=== PATIENT | female | born 1950 | race Two or more races ===

== ENCOUNTER 2017-01-23 12:43 | Inpatient (IN) | payer MEDICARE, MEDICAID ==
[~2017-01-23] VITALS: Ht 165.1 cm; Wt 84.4 kg
--- NOTE | 2017-01-23 13:20 | NUR ---
BIB EMS C/O COUGHING BLOOD SINCE THIS MORNING. PATIENT IS AWAKE, ALERT WITH EPISODE OF CONFUSION. APPEARS IN NO APPARENT DISTRESS, RESPIRATION EVEN, PT ON O2 VIA NC @2LPM. PT AFEBRILE. VSS. WILL CONT TO MONITOR
[2017-01-23 13:23] LABS: BASOPHILS # (AUTO) 0.4 /CMM (0.0-0.2); EOSINOPHILS # (AUTO) 0.1 /CMM (0.0-0.7); HEMATOCRIT 30 % (33-45); HEMOGLOBIN 9.9 g/dL (11.5-14.8); LYMPHOCYTES # (AUTO) 0.8 /CMM (0.8-4.8); LYMPHOCYTES % (AUTO) 8.1 % (20.0-44.0); MEAN CORPUSCULAR HEMOGLOBIN 33 PG (26.0-33.0); MEAN CORPUSCULAR HGB CONC 33 g/dl (31.0-36.0); MEAN CORPUSCULAR VOLUME 99 fL (82-100); MONOCYTES # (AUTO) 0.5 /CMM (0.1-1.30); MONOCYTES % (AUTO) 4.9 % (2.0-12.0); NEUTROPHILS # (AUTO) 8.4 /CMM (1.8-8.9); PLATELET COUNT (AUTO) 296 /CMM (150-450); RDW COEFFICIENT OF VARIATION 18.3 (11.5-15.0); RED BLOOD CELL COUNT(AUTO) 3.03 MIL/uL (4.0-5.2); WHITE BLOOD COUNT (AUTO) 10.3 K/uL (4.3-11.0)
[2017-01-23 13:39] LABS: ALANINE AMINOTRANSFERASE 21 U/L (12-78); ALKALINE PHOSPHATASE 128 U/L (46-116); ASPARTATE AMINOTRANSFERASE 20 U/L (15-37); BILIRUBIN,DIRECT 0.1 mg/dL (0.0-0.2); BILIRUBIN,TOTAL 0.4 mg/dL (0.2-1.0); CALCIUM, SERUM 8.2 mg/dL (8.5-10.1); CARBON DIOXIDE 18 mmol/L (21-32); CHLORIDE 102 mmol/L (98-107); CREATININE 6.6 mg/dL (0.6-1.3); GLUCOSE 138 mg/dL (74-106); INR 0.99 (0.87-1.13); POTASSIUM 5.5 mmol/L (3.5-5.1); PROTHROMBIN TIME 10.3 SECS (9.5-12.7); SODIUM SERUM 134 mmol/L (136-145); TOTAL PROTEIN, SERUM 7.4 g/dL (6.4-8.2)
[2017-01-23 13:41] LABS: TROPONIN I < 0.017 ng/mL (0.00-0.056); UREA NITROGEN, BLOOD 96 mg/dL (7-18)
--- NOTE | 2017-01-23 14:16 | NUR ---
CHARGE NURSE ASKED NURSING CEMENT FINISHER APPRENTICE FOR TELEMETRY BED
--- NOTE | 2017-01-23 14:42 | NUR ---
PAGED PIANO STRINGER FOR [facility] NEPHROLOGY
[2017-01-23] MEDS ORDERED: VANCOMYCIN 1 GM in IV D5W 250 ML IV ONE (15:00)
[2017-01-23] MEDS ORDERED: PIPERACILLIN /TAZOBACTAM 3.375 G in IV D5W 50 ML IV ONE (15:00)
[2017-01-23] MEDS ORDERED: HEPA50008 SQ (15:14)
[2017-01-23] MEDS ORDERED: LEVE100S GT (15:14)
[2017-01-23] MEDS ORDERED: THIA100T13 GT (15:14)
[2017-01-23] MEDS ORDERED: OLAN5TAB3 GT (15:14)
[2017-01-23] MEDS ORDERED: ACET-868 GT (15:14)
[2017-01-23] MEDS ORDERED: INSU100I14 SQ (15:14)
[2017-01-23] MEDS ORDERED: IPRA3AMP IH ×2 (15:14)
[2017-01-23] MEDS ORDERED: HYDR20TA3 GT (15:14)
[2017-01-23] MEDS ORDERED: DOCU-170 GT (15:14)
[2017-01-23] MEDS ORDERED: HYDR10TA14 GT (15:14)
[2017-01-23] MEDS ORDERED: VIT1TABL46 GT (15:14)
[2017-01-23] MEDS ORDERED: MAGN296S GT (15:14)
[2017-01-23] MEDS ORDERED: LEVO200T GT (15:14)
[2017-01-23] MEDS ORDERED: OMEP20TA68 GT (15:14)
[2017-01-23] MEDS ORDERED: AMLO10TA2 GT (15:14)
[2017-01-23] MEDS ORDERED: CHOL200026 PO (15:14)
[2017-01-23] MEDS ORDERED: HYDR-552 GT (15:14)
[2017-01-23] MEDS ORDERED: PROT946L GT (15:14)
[2017-01-23] MEDS ORDERED: FERR220S2 GT (15:14)
[2017-01-23] MEDS ORDERED: VITA1TAB18 GT (15:14)
[2017-01-23] MEDS ORDERED: HYDR-4076 GT (15:14)
[2017-01-23] MEDS ORDERED: BISA10SU8 RC (15:14)
--- NOTE | 2017-01-23 15:14 | NUR ---
REPAGED DR TINOCO FOR ADMISSION
[2017-01-23] MEDS ORDERED: NUT.237L67 GT (15:17)
[2017-01-23 15:25] LABS: APPEARANCE,URINE CLOUDY (CLEAR); BILIRUBIN,URINE NEGATIVE (NEGATIVE); BLOOD, URINE TRACE-INTA Ery/uL (NEGATIVE); COLOR,URINE YELLOW (YELLOW); KETONES,URINE NEGATIVE (NEGATIVE); LEUKOCYTE ESTERASE ,URINE 3+ (NEGATIVE); NITRITE, URINE POSITIVE (NEGATIVE); PH,URINE 5.5 (5.0-8.0); PROTEIN,URINE 1+ mg/dl (NEGATIVE); UGLUCOSE NEGATIVE (NEGATIVE); UROBILINOGEN,URINE 0.2 EU/dL (0.2)
[2017-01-23 15:27] LABS: BACTERIA,URINE Moderate /HPF (None Seen); RBC,URINE 0-2 /HPF (0-2); SQUAMOUS EPITHELIAL CELL,UR Few /HPF (None Seen); WBC,URINE 51-80 /HPF (0-3)
[2017-01-23 16:00] VITALS: BP 123/70
[2017-01-23 16:10] VITALS: BP 123/70
--- NOTE | 2017-01-23 16:10 | NUR ---
RN OPENING NOTES RECEIVED PATIENT FROM ER IN STABLE CONDITION. IN ROOM 111-1, ALERT AND ORIENTED X3, PERIODS OF CONFUSION, ABLE TO FOLLOW SIMPLE COMMANDS. BREATHING EVEN AND UNLABORED, NO RESPIRATORY DISTRESS NOTED. O2 SAT 100% ON O2 2LPM VIA NC. ON TELE SINUS RHYTMN IN THE 70S. SLIGHT REDNESS NOTED TO THE BILATERAL GROIN. G-TUBE CLAMPED, SITE CDI. IV SITE ON RIGHT HAND #20 CDI. LEFT UPPER CHEST HD CATH, CDI. SIDE RAILS UP, BED LOCKED AND IN LOWEST POSITION, CALL LIGHT WITHIN EASY REACH. CONTINUE TO MONITOR PATIENT.
--- NOTE | 2017-01-23 16:14 | NUR ---
PATIENT TRASPORTED TO CAIO,. VSS
[2017-01-23] MEDS ORDERED: IPRATROPIUM NEB FS 0.5 MG/2.5 ML AMPUL.NEB NEB PRN (18:00)
[2017-01-23] MEDS ORDERED: BISACODYL SUPP (10 MG) 10 MG/SUPP.RECT SUPP.RECT RC PRN (18:00)
[2017-01-23] MEDS ORDERED: MAGNESIUM CITRATE 296 ML BOTTLE GT PRN (18:00)
[2017-01-23] MEDS ORDERED: ALBUTEROL FS 2.5 MG/0.5 ML VIAL.NEB NEB PRN (18:00)
[2017-01-23] MEDS ORDERED: FERROUS SULFATE UDC 300 MG/5 ML UDC PO SCH (18:00)
[2017-01-23] MEDS: HYDROCODONE/APAP 5/325MG 1 EACH TABLET GT PRN (18:27)
[2017-01-23] MEDS ORDERED: ACETAMINOPHEN 650 MG/20.3 ML UDC GT PRN (18:30)
--- NOTE | 2017-01-23 18:30 | NUR ---
RN END NOTES RESIDENT RESTING IN BED IN STABLE CONDITION. NO RESPIRATORY DISTRESS NOTED, BREATHING EVEN AND UNLABORED. O2 SAT 100% ON O2 2LPM VIA NASAL CANNULA. TELE SINUS TIBURCIO IN THE HIGH 60S-70S. RAC IV SITE CDI, NO COMPLICATIONS NOTED. GT SITE CDI. SIDE RAILS UP, BED LOCKED AND IN LOWEST POSITION, CALL LIGHT WITHIN EASY REACH.
--- NOTE | 2017-01-23 19:20 | NUR ---
RN INITIAL NOTE RECEIVED PT IN NO ACUTE DISTRESS IN BED. PT IS A/O X 3 AND ABLE TO MAKE NEEDS KNOWN. PT IS ON O2 VIA NC @ 2LPM AND TOLERATING WELL. PT IS ON TELE WITH SR ON THE MONITOR. PT HAS GTUBE THAT IS CLEAN DRY INTACT AND PATENT WITH FREE WATER FLUSH. PT HAS NOVASOURCE @ 65ML/HR X 16H, BUT AWAITING BAG FROM NUTRITION. PT HAS AV SHUNT ON BING THAT HAS + BRUIT. PT HAS RHAND 20G THAT IS CLEAN DRY INTACT AND PATENT. BED IN LOW LOCK POSITION WITH RIALS UP X 2. CALL LIGHT WITHIN REACH AND ALL SAFETY MEASURES ENSURED AND CARRIED OUT. WILL CONTINUE TO MONITOR PT.
[2017-01-23 20:00] VITALS: BP 129/74
[2017-01-23] MEDS ORDERED: FEE PK DOSING 1 MIN EA MC ONE (20:21)
[2017-01-23] MEDS ORDERED: SECONDARY IV SET 1 EA INFUS.SET MC ONE (20:45)
[2017-01-23] MEDS ORDERED: IV NS 0.9% 250 ML IV ONE (20:45)
[2017-01-23] MEDS ORDERED: IV SET PRIMARY PUMP SET 1 EA INFUS.SET MC ONE (20:45)
[2017-01-23] MEDS: MEROPENEM 500 MG in IV NS 0.9% 50 ML IV SCH (20:45)
[2017-01-23] MEDS ORDERED: PIPERACILLIN /TAZOBACTAM 2.25 G in IV D5W 50 ML IV SCH (21:00)
[2017-01-23] MEDS: ALBUTEROL FS 2.5 MG/0.5 ML VIAL.NEB NEB SCH (21:09)
[2017-01-23] MEDS: IPRATROPIUM NEB FS 0.5 MG/2.5 ML AMPUL.NEB NEB SCH (21:09)
[2017-01-23] MEDS: hydrALAZINE HCL 25 MG TABLET GT SCH (21:13)
[2017-01-23] MEDS: HYDROCORTISONE 5 MG TABLET GT SCH (21:13)
[2017-01-23 21:35] VITALS: BP 129/74
[2017-01-23] MEDS: RENAL NOVASOURCE 1,000 ML BOTTLE GT PRN (23:58)
[2017-01-24] VITALS: BP 139/75
[2017-01-24] MEDS: IPRATROPIUM NEB FS 0.5 MG/2.5 ML AMPUL.NEB NEB SCH ×4 (01:13→20:26)
[2017-01-24] MEDS: ALBUTEROL FS 2.5 MG/0.5 ML VIAL.NEB NEB SCH ×4 (01:13→20:26)
[2017-01-24 04:00] VITALS: BP 142/78
--- NOTE | 2017-01-24 06:23 | NUR ---
RN CLOSING NOTE PT REMAINS IN NO ACUTE DISTRESS IN BED. PT DID NOT HAVE ANY SIGNIFICANT CHANGE IN CONDITION DURING SHIFT. ALL NEEDS MET ALL ORDERS CARRIED OUT. WILL ENDORSE REPORT TO AM RN FOR CONTINUITY OF CARE.
[2017-01-24 07:34] LABS: BASOPHILS % (AUTO) 0.1 % (0.0-2.0); EOSINOPHILS # (AUTO) 0.2 /CMM (0.0-0.7); EOSINOPHILS % (AUTO) 2.6 % (0.0-6.0); HEMATOCRIT 30 % (33-45); HEMOGLOBIN 9.6 g/dL (11.5-14.8); LYMPHOCYTES # (AUTO) 0.5 /CMM (0.8-4.8); LYMPHOCYTES % (AUTO) 5.3 % (20.0-44.0); MEAN CORPUSCULAR HEMOGLOBIN 33 PG (26.0-33.0); MEAN CORPUSCULAR HGB CONC 33 g/dl (31.0-36.0); MEAN CORPUSCULAR VOLUME 100 fL (82-100); MONOCYTES # (AUTO) 0.9 /CMM (0.1-1.30); MONOCYTES % (AUTO) 10.5 % (2.0-12.0); NEUTROPHILS # (AUTO) 7.3 /CMM (1.8-8.9); NEUTROPHILS % (AUTO) 81.5 % (43.0-81.0); PLATELET COUNT (AUTO) 302 /CMM (150-450); RDW COEFFICIENT OF VARIATION 19.4 (11.5-15.0); RED BLOOD CELL COUNT(AUTO) 2.95 MIL/uL (4.0-5.2); WHITE BLOOD COUNT (AUTO) 8.9 K/uL (4.3-11.0)
[2017-01-24 07:53] LABS: CALCIUM, SERUM 7.8 mg/dL (8.5-10.1); POTASSIUM 5.1 mmol/L (3.5-5.1)
[2017-01-24 08:00] VITALS: BP 138/80
[2017-01-24 08:25] LABS: CREATININE 7.5 mg/dL (0.6-1.3)
[2017-01-24] MEDS: HYDROCORTISONE 20 MG TABLET GT SCH (09:00)
[2017-01-24] MEDS ORDERED: VITAMIN B COMP W-C 1 TAB TABLET PO SCH (09:00)
--- NOTE | 2017-01-24 09:20 | NUR ---
WOUND CARE CONSULT: PT PRESENTS WITH SACRAL SCARRING. ALL SKIN PROTECTION MEASURES IN PLACE AND DISCUSSED WITH NURSING STAFF. PT IS INCONTINENT. PT ABLE TO ASSIST SOMEWHAT WITH TURNING AND REPOSITIONING IN BED. PT ON COMFORT GEL MATTRESS. WILL SEE PRN. GIPSON IN AGREEMENT WITH PLAN OF CARE. Addendum: 01/24/17 at 0922 by SAGAR PRASAD WNDNU Amended: Links added.
[2017-01-24] MEDS: LEVOTHYROXINE SODIUM 100 MCG TABLET GT SCH (09:24)
[2017-01-24] MEDS: FERROUS SULFATE UDC 300 MG/5 ML UDC GT SCH ×3 (09:25→17:50)
[2017-01-24] MEDS: CHOLECALCIFEROL 1,000 UNIT TABLET (VIT D3) GT SCH (09:25)
[2017-01-24] MEDS: PANTOPRAZOLE 40 MG/PACK PACK GT SCH (09:26)
[2017-01-24] MEDS: OLANZAPINE 5 MG TABLET GT SCH ×2 (09:26→17:49)
[2017-01-24] MEDS: LEVETIRACETAM SOL (5 ML) 100 MG/ML UDC GT SCH ×2 (09:27→17:49)
[2017-01-24] MEDS: THIAMINE HCL 100 MG TABLET GT SCH (09:27)
[2017-01-24] MEDS: AMLODIPINE BESYLATE 10 MG TABLET GT SCH (09:27)
[2017-01-24] MEDS: VIT B CMPLX 3/FA/VIT C/BIOTIN 1 TAB TABLET GT SCH (09:28)
[2017-01-24] MEDS: DOCUSATE SODIUM LIQ 100 MG/10 ML UDC GT SCH (09:28)
[2017-01-24] MEDS ORDERED: Z GUARD REMEDY 2 OZ OINT TP PRN (09:30)
[2017-01-24] MEDS: Z GUARD REMEDY 2 OZ OINT TP SCH (09:30)
[2017-01-24] MEDS: hydrALAZINE HCL 25 MG TABLET GT SCH ×4 (09:33→20:38)
[2017-01-24] MEDS: MEROPENEM 500 MG in IV NS 0.9% 50 ML IV SCH ×2 (09:37→20:37)
[2017-01-24] MEDS: PROSOURCE / PROSTAT (PYXIS) 30 ML UDC GT SCH ×2 (09:37→17:55)
[2017-01-24] MEDS ORDERED: ALTEPLASE CATHFLO 2 MG/VIAL IV ONE (11:00)
[2017-01-24 12:00] VITALS: BP 109/62
[2017-01-24] MEDS: HYDROCODONE/APAP 5/325MG 1 EACH TABLET GT PRN (14:10)
[2017-01-24 16:00] VITALS: BP 124/86
--- NOTE | 2017-01-24 19:30 | NUR ---
ELECTRONICS TEACHER INITIAL NOTES PT IS IN BED, HOB ELEVATED, ALERT, ORIENTED X1, WITH PERIODS OF CONFUSION, REORIENTED PT AND PROVIDED SAFETY. ON NASAL CANNULA ON 3LPM, NO RESPIRATORY DISTRESS NOTED. ON TELE MONITOR, SINUS RHYTHM. ON CONTINUOUS FEEDING, NO RESIDUAL NOTED. ASSISTED PATIENT WITH TURNING AND REPOSITIONING. IV SITE ON RIGHT HAND FLUSHED AND PATENT. SIDE RAILS UP, BED LOCKED AND IN LOWEST POSITION. WILL CONTINUE TO MONITOR, CALL LIGHT WITHIN REACH.
[2017-01-24 20:00] VITALS: BP 147/76
[2017-01-24] MEDS: HYDROCORTISONE 5 MG TABLET GT SCH (21:32)
[2017-01-25] VITALS: BP 145/87
[2017-01-25] MEDS ORDERED: IV NS 0.9% 250 ML IV ONE (01:39)
[2017-01-25] MEDS: HYDROCODONE/APAP 5/325MG 1 EACH TABLET GT PRN ×3 (01:44→15:17)
[2017-01-25] MEDS: IPRATROPIUM NEB FS 0.5 MG/2.5 ML AMPUL.NEB NEB SCH ×4 (02:15→20:10)
[2017-01-25] MEDS: ALBUTEROL FS 2.5 MG/0.5 ML VIAL.NEB NEB SCH ×4 (02:15→20:10)
[2017-01-25] MEDS: RENAL NOVASOURCE 1,000 ML BOTTLE GT PRN ×2 (03:55→19:48)
[2017-01-25 04:00] VITALS: BP 138/76
--- NOTE | 2017-01-25 06:41 | NUR ---
RN CLOSING NOTES NO SIGNIFICANT CHANGES OVERNIGHT. NO SOB, NO RESPIRATORY DISTRESS NOTED, AFEBRILE. NO ACTIVE BLEEDING NOTED. TOLERATING NC 2LPM VIA NASAL CANNULA. KEPT PATIENT CLEAN AND DRY, ASSISTED WITH ADL'S TOLERATED CONTINUOUS FEEDING. SIDE RAILS UP, BED LOCKED AND IN LOWEST POSITION, ALL SAFETY MEASURES MET, CALL LIGHT WITHIN REACH. WILL ENDORSED TO AM NURSE FOR CONTINUATION OF CARE.
[2017-01-25 08:00] VITALS: BP 160/89
[2017-01-25 08:13] LABS: CALCIUM, SERUM 8.6 mg/dL (8.5-10.1); POTASSIUM 5.8 mmol/L (3.5-5.1)
[2017-01-25] MEDS: AMLODIPINE BESYLATE 10 MG TABLET GT SCH (08:34)
[2017-01-25] MEDS: FERROUS SULFATE UDC 300 MG/5 ML UDC GT SCH ×3 (08:34→17:43)
[2017-01-25] MEDS: VIT B CMPLX 3/FA/VIT C/BIOTIN 1 TAB TABLET GT SCH (08:34)
[2017-01-25] MEDS: DOCUSATE SODIUM LIQ 100 MG/10 ML UDC GT SCH (08:34)
[2017-01-25] MEDS: CHOLECALCIFEROL 1,000 UNIT TABLET (VIT D3) GT SCH (08:34)
[2017-01-25] MEDS: LEVETIRACETAM SOL (5 ML) 100 MG/ML UDC GT SCH ×2 (08:34→17:44)
[2017-01-25] MEDS: PANTOPRAZOLE 40 MG/PACK PACK GT SCH (08:35)
[2017-01-25] MEDS: THIAMINE HCL 100 MG TABLET GT SCH (08:35)
[2017-01-25] MEDS: LEVOTHYROXINE SODIUM 100 MCG TABLET GT SCH (08:35)
[2017-01-25] MEDS: MEROPENEM 500 MG in IV NS 0.9% 50 ML IV SCH ×2 (08:36→20:21)
[2017-01-25] MEDS: OLANZAPINE 5 MG TABLET GT SCH ×2 (08:36→17:43)
[2017-01-25 08:49] LABS: THYROID STIMULATING HORMONE 11.017 uIU/mL (0.358-3.74); URIC ACID 5.7 mg/dL (2.6-7.2)
[2017-01-25] MEDS: PROSOURCE / PROSTAT (PYXIS) 30 ML UDC GT SCH ×2 (08:49→17:44)
[2017-01-25] MEDS: Z GUARD REMEDY 2 OZ OINT TP SCH (08:49)
[2017-01-25] MEDS: HYDROCORTISONE 20 MG TABLET GT SCH (09:00)
[2017-01-25] MEDS: hydrALAZINE HCL 25 MG TABLET GT SCH ×4 (09:22→20:23)
[2017-01-25 09:30] LABS: ABG OXYGEN SATURATION 89.8 % (92.0-98.5); ABG PCO2 39.7 mmHg (35.0-45.0); ABG PH 7.278 (7.350-7.450); AaDO2 119.9 mmHg; COHb 1.2 % (0.5-1.5); MetHb 0.6 % (0.0-1.5); O2Hb 88.2 % (94.0-97.0); SITE, ABG Right Radial; VENT MODE, BG nasal cannula
--- NOTE | 2017-01-25 09:45 | NUR ---
TRAFFIC POLICE OFFICER INITIAL NOTES PT IS IN BED, HOB ELEVATED, ALERT, ORIENTED X1, WITH PERIODS OF CONFUSION, REORIENTED PT AND PROVIDED SAFETY. ON NASAL CANNULA ON 3LPM, NO RESPIRATORY DISTRESS NOTED. ON TELE MONITOR, SINUS RHYTHM. ON CONTINUOUS FEEDING, NO RESIDUAL NOTED. ASSISTED PATIENT WITH TURNING AND REPOSITIONING. IV SITE ON RIGHT HAND CLOGGED. IV PLACED IN RIGHT AC 22 G IV ANTIBIOTIC RUNNING . SIDE RAILS UP, BED LOCKED AND IN LOWEST POSITION. WILL CONTINUE TO MONITOR, CALL LIGHT WITHIN REACH.
[2017-01-25] MEDS: HYDROCORTISONE 5 MG TABLET GT SCH ×2 (10:48→21:21)
--- NOTE | 2017-01-25 11:04 | NUR ---
RN NOTE HYDROCORTISONE MEDICATION NOT AVAILABLE PHARMACY CONTACTED TWICE FOR REQUEST TO [facility]
[2017-01-25 12:00] VITALS: BP 111/56
[2017-01-25] MEDS ORDERED: VANCOMYCIN 1 GM in IV D5W 250 ML IV ONE (14:00)
[2017-01-25] MEDS ORDERED: SECONDARY IV SET 1 EA INFUS.SET MC ONE (14:12)
[2017-01-25 16:00] VITALS: BP 128/68
[2017-01-25] MEDS: LACTOBACILLUS RHAMNOSUS GG 1 EACH CAP.SPRINK GT SCH (17:44)
--- NOTE | 2017-01-25 18:06 | NUR ---
RN CLOSING NOTES NO SIGNIFICANT CHANGES THROUGHOUT THE DAY. NO SOB, NO RESPIRATORY DISTRESS NOTED, AFEBRILE. NO ACTIVE BLEEDING NOTED. TOLERATING NC 2LPM VIA NASAL CANNULA. KEPT PATIENT CLEAN AND DRY, ASSISTED WITH ADL'S TOLERATED CONTINUOUS FEEDING. SIDE RAILS UP, BED LOCKED AND IN LOWEST POSITION, ALL SAFETY MEASURES MET, CALL LIGHT WITHIN REACH. PATIENT RECIEVED HEMODIALYSIS TODAY 2 LITERS REMOVED WILL ENDORSED TO PM NURSE FOR CONTINUATION OF CARE.
[2017-01-25 20:00] VITALS: BP 139/75
[2017-01-26] VITALS (8 sets, daily range): BP systolic 101–177; BP diastolic 51–99
[2017-01-26] MEDS: HYDROCODONE/APAP 5/325MG 1 EACH TABLET GT PRN ×3 (00:57→17:41)
[2017-01-26] MEDS: IPRATROPIUM NEB FS 0.5 MG/2.5 ML AMPUL.NEB NEB SCH ×4 (01:19→19:35)
[2017-01-26] MEDS: ALBUTEROL FS 2.5 MG/0.5 ML VIAL.NEB NEB SCH ×4 (01:19→19:35)
[2017-01-26] MEDS ORDERED: IV NS 0.9% 250 ML IV ONE (04:57)
--- NOTE | 2017-01-26 07:43 | NUR ---
SECURITY CHECKER INITIAL NOTES PT IS IN BED, HOB ELEVATED, ALERT, ORIENTED X1, WITH PERIODS OF CONFUSION, REORIENTED PT AND PROVIDED SAFETY. ON NASAL CANNULA ON 3LPM, NO RESPIRATORY DISTRESS NOTED. . ON CONTINUOUS FEEDING, NO RESIDUAL NOTED. ASSISTED PATIENT WITH TURNING AND REPOSITIONING. IV SITE ON RIGHT HAND CLOGGED. IV RIGHT AC 22 G IV SIDE RAILS UP, BED LOCKED AND IN LOWEST POSITION. WILL CONTINUE TO MONITOR, CALL LIGHT WITHIN REACH.
--- NOTE | 2017-01-26 07:56 | NUR ---
RN CLOSING NOTES NO SIGNIFICANT CHANGES OVERNIGHT. TOLERATING NC 2LPM VIA NASAL CANNULA, SATURATING WELL. KEPT PATIENT CLEAN AND DRY, ASSISTED WITH ADL'S MAXIMUM ASSIST. TOLERATED GT CONTINUOUS FEEDING. SIDE RAILS UP, BED LOCKED AND IN LOWEST POSITION, ALL SAFETY MEASURES MET, CALL LIGHT WITHIN REACH. ENDORSED TO AM NURSE FOR CONTINUATION OF CARE.
[2017-01-26 08:01] LABS: CALCIUM, SERUM 8.4 mg/dL (8.5-10.1); CREATININE 6.5 mg/dL (0.6-1.3); POTASSIUM 5.5 mmol/L (3.5-5.1)
[2017-01-26] MEDS: HYDROCORTISONE 20 MG TABLET GT SCH (09:00)
[2017-01-26] MEDS: MEROPENEM 500 MG in IV NS 0.9% 50 ML IV SCH ×2 (09:08→21:26)
[2017-01-26] MEDS: LEVOTHYROXINE SODIUM 100 MCG TABLET GT SCH (09:09)
[2017-01-26] MEDS: CHOLECALCIFEROL 1,000 UNIT TABLET (VIT D3) GT SCH (09:09)
[2017-01-26] MEDS: PANTOPRAZOLE 40 MG/PACK PACK GT SCH (09:09)
[2017-01-26] MEDS: OLANZAPINE 5 MG TABLET GT SCH ×2 (09:09→17:41)
[2017-01-26] MEDS: LACTOBACILLUS RHAMNOSUS GG 1 EACH CAP.SPRINK GT SCH ×2 (09:09→17:41)
[2017-01-26] MEDS: LEVETIRACETAM SOL (5 ML) 100 MG/ML UDC GT SCH ×2 (09:09→17:42)
[2017-01-26] MEDS: FERROUS SULFATE UDC 300 MG/5 ML UDC GT SCH ×3 (09:09→17:42)
[2017-01-26] MEDS: VIT B CMPLX 3/FA/VIT C/BIOTIN 1 TAB TABLET GT SCH (09:09)
[2017-01-26] MEDS: DOCUSATE SODIUM LIQ 100 MG/10 ML UDC GT SCH (09:09)
[2017-01-26] MEDS: THIAMINE HCL 100 MG TABLET GT SCH (09:09)
[2017-01-26] MEDS: Z GUARD REMEDY 2 OZ OINT TP SCH (09:13)
[2017-01-26] MEDS: PROSOURCE / PROSTAT (PYXIS) 30 ML UDC GT SCH ×2 (09:13→17:45)
[2017-01-26] MEDS: AMLODIPINE BESYLATE 10 MG TABLET GT SCH (09:13)
[2017-01-26] MEDS: hydrALAZINE HCL 25 MG TABLET GT SCH ×4 (09:22→21:26)
--- NOTE | 2017-01-26 13:15 | NUR ---
RN NOTE PT SHOWED SIGNS OF DISTRESS DURING AND SHORTLY AFTER BED BATH , PT DESATURATION TO 86 ON 2 L OF O2 PATIENT O2 INCREASED AND HEAD OF BEAD RAISED PATIENT HD BEGAN AND STAT EKG AND LEAD Addendum: 01/26/17 at 1608 by SYDNEE SCHMITZ RN PATIENT PLACED ON TELE MONITOR
--- NOTE | 2017-01-26 16:03 | NUR ---
RN NOTE PATIENT RECIEVED HD TODAY 2.5 L REMOVED PATIENT TOLERATED WELL NO ISSUES . VITAL STABLE
[2017-01-26] MEDS ORDERED: VANCOMYCIN 1 GM in IV D5W 250 ML IV ONE (18:00)
--- NOTE | 2017-01-26 18:23 | NUR ---
RN CLOSING NOTES NO SIGNIFICANT CHANGES THROUGHOUT THE DAY. NO SOB,RESPIRATORY DISTRESS NOTED BREIFLY AND REPORTED TO MD TINOCO . MD ASSESSED PATIENT ORDER LABS AND EKG, LAB CAME BACK WNL , AFEBRILE. NO ACTIVE BLEEDING NOTED. TOLERATING NC 2LPM VIA NASAL CANNULA. KEPT PATIENT CLEAN AND DRY, ASSISTED WITH ADL'S TOLERATED CONTINUOUS FEEDING. SIDE RAILS UP, BED LOCKED AND IN LOWEST POSITION, ALL SAFETY MEASURES MET, CALL LIGHT WITHIN REACH. PATIENT RECEIVED HEMODIALYSIS TODAY 2 LITERS REMOVED WILL ENDORSED TO PM NURSE FOR CONTINUATION OF CARE.
[2017-01-26] MEDS ORDERED: SECONDARY IV SET 1 EA INFUS.SET MC ONE (18:32)
--- NOTE | 2017-01-26 19:30 | NUR ---
MULTIMEDIA EDUCATIONAL SPECIALIST INITIAL NOTES PT IS IN BED, HOB ELEVATED. A/O X1, PERIODS OF CONFUSION, REORIENTED PT. ON NASAL CANNULA 3LPM, SATURATING 94%. ON TELE MONITOR SINUS RHYTHM,IV SITES IN R HAND TKO. ON CONTINUOUS GT FEEDING, NO RESIDUAL NOTED. ASSISTED PT TURNING AND REPOSITIONING, SIDE RAILS UP, BED LOCKED AND IN LOWEST POSITION, CALL LIGHT WITHIN REACH. WILL CONTINUE TO MONITOR.
[2017-01-26] MEDS ORDERED: ROCURONIUM BROMIDE 50 MG/5 ML IV ONE (20:15)
[2017-01-26] MEDS ORDERED: FEE EMEERGENCY 1 MIN EA MC ONE (20:15)
--- NOTE | 2017-01-26 20:48 | NUR ---
RN NOTES CALLED THE PATIENT'S SON, MC AND INFORMED HIM ABOUT THE CHANGE OF CONDITION OF HER AND THAT SHE WAS TRANSFERRED TO ICU.
--- NOTE | 2017-01-26 21:00 | NUR ---
RN NOTES PT PULLED OUT THE IV, INSERTED A NEW IV LINE HAND, FLUSHED AND PATENT.
[2017-01-26] MEDS: HYDROCORTISONE 5 MG TABLET GT SCH (21:26)
--- NOTE | 2017-01-26 21:30 | NUR ---
RN NOTES PT IS AGITATED AND TRYING TO PULL TUBES AND IV SITES, REORIENTED PATIENT AND PROVIDED COMFORT. WILL CALL MD TO OBTAIN AND ORDER TO CALM THE PATIENT. EVENING MEDICATIONS GIVEN VIA GT, PT TOLERATED IT WELL. CALL LIGHT WITH REACH.
[2017-01-26] MEDS ORDERED: LORAZEPAM 0.5 MG TABLET GT PRN (22:00)
--- NOTE | 2017-01-26 22:00 | NUR ---
RN NOTE ATIVAN 0.5MG VIA GT Q6PRN NEEDED FOR AGITATION FROM DR JESUS MD ORDERED OBTAINED AND CARRIED OUT.
--- NOTE | 2017-01-26 22:06 | NUR ---
RN NOTES PT FOUND UNRESPONSIVE, UNABLE TO GET A PULSE, CALLED CODE BLUE, CPR INITIATED.
--- NOTE | 2017-01-26 22:45 | NUR ---
TELEVISION RECEIVER ANALYZER RCD PT FROM TELE S/P CODE BLUE; PT IS NON RESPONSIVE INTUBATED 6 @ 24 W/INITIAL VENT SETTINGS AC 16 550 100% 5. NSR ON MONITOR W/SBP 130s. PT HAS G TUBE CLAMPED. PENDING LAB WORK, ABG, CXR, EKG. CONTINUE TO MONITOR.
--- NOTE | 2017-01-26 22:50 | NUR ---
CODE BLUE was initiated on the patient, pt was intubated with size 6 et tube due to small airway, MD attempted x3 to intubate. pt in icu ventilator is connected to red outlet ambubag at bedside.alarms are set and audible. Addendum: 01/26/17 at 2253 by LIDYA ANAND RT Amended: Links added.
[2017-01-26 22:55] LABS: CALCIUM, SERUM 8.1 mg/dL (8.5-10.1); CARBON DIOXIDE 24 mmol/L (21-32); CHLORIDE 96 mmol/L (98-107); CREATININE 5.6 mg/dL (0.6-1.3); GLUCOSE 175 mg/dL (74-106); POTASSIUM 4.4 mmol/L (3.5-5.1); SODIUM SERUM 131 mmol/L (136-145); UREA NITROGEN, BLOOD 78 mg/dL (7-18)
[2017-01-26 23:01] LABS: ALANINE AMINOTRANSFERASE 46 U/L (12-78); ALBUMIN 3.1 g/dL (3.4-5.0); ALKALINE PHOSPHATASE 127 U/L (46-116); ASPARTATE AMINOTRANSFERASE 58 U/L (15-37); BILIRUBIN,TOTAL 0.6 mg/dL (0.2-1.0); MAGNESIUM 2.5 mg/dL (1.8-2.4); PHOSPHORUS 6.1 mg/dL (2.5-4.9); TOTAL PROTEIN, SERUM 7.9 g/dL (6.4-8.2)
[2017-01-26 23:02] LABS: HEMATOCRIT 29 % (33-45); HEMOGLOBIN 9.5 g/dL (11.5-14.8); INR 0.96 (0.87-1.13); MEAN CORPUSCULAR HEMOGLOBIN 32 PG (26.0-33.0); MEAN CORPUSCULAR HGB CONC 33 g/dl (31.0-36.0); MEAN CORPUSCULAR VOLUME 100 fL (82-100); PROTHROMBIN TIME 10.2 SECS (9.5-12.7); RED BLOOD CELL COUNT(AUTO) 2.95 MIL/uL (4.0-5.2); TROPONIN I < 0.017 ng/mL (0.00-0.056)
[2017-01-26 23:03] LABS: BASOPHILS # (AUTO) 0.1 /CMM (0.0-0.2); BASOPHILS % (AUTO) 0.6 % (0.0-2.0); EOSINOPHILS # (AUTO) 0.2 /CMM (0.0-0.7); EOSINOPHILS % (AUTO) 1.8 % (0.0-6.0); LYMPHOCYTES # (AUTO) 1.4 /CMM (0.8-4.8); LYMPHOCYTES % (AUTO) 11.8 % (20.0-44.0); MONOCYTES # (AUTO) 0.9 /CMM (0.1-1.30); MONOCYTES % (AUTO) 7.6 % (2.0-12.0); NEUTROPHILS # (AUTO) 9.4 /CMM (1.8-8.9); NEUTROPHILS % (AUTO) 78.2 % (43.0-81.0); PLATELET COUNT (AUTO) 287 /CMM (150-450); RDW COEFFICIENT OF VARIATION 18.6 (11.5-15.0)
[2017-01-26 23:16] LABS: ABG BASE EXCESS -3.9 mmol/L; ABG PCO2 49.5 mmHg (35.0-45.0); ABG PH 7.287 (7.350-7.450); ABG PO2 136.7 mmHg (75.0-100.0); AaDO2 526.8 mmHg; SITE, ABG Right Brachial
[2017-01-26] MEDS ORDERED: IV SET PRIMARY PUMP SET 1 EA INFUS.SET MC ONE (23:59)
[2017-01-26] MEDS ORDERED: PROPOFOL 100 ML IV ONE (23:59)
[2017-01-27] VITALS (63 sets, daily range): BP systolic 84–178; BP diastolic 45–93
[2017-01-27] MEDS: PROPOFOL 100 ML IV PRN ×4 (00:06→17:30)
[2017-01-27] MEDS ORDERED: LORAZEPAM 0.5 MG TABLET ONE (00:19)
[2017-01-27] MEDS: IPRATROPIUM NEB FS 0.5 MG/2.5 ML AMPUL.NEB NEB SCH ×4 (00:52→19:30)
[2017-01-27] MEDS: ALBUTEROL FS 2.5 MG/0.5 ML VIAL.NEB NEB SCH ×4 (00:52→19:30)
[2017-01-27 04:52] LABS: EOSINOPHILS % (AUTO) 0.4 % (0.0-6.0); HEMATOCRIT 25 % (33-45); HEMOGLOBIN 8.3 g/dL (11.5-14.8); LYMPHOCYTES # (AUTO) 0.2 /CMM (0.8-4.8); LYMPHOCYTES % (AUTO) 1.7 % (20.0-44.0); MEAN CORPUSCULAR HEMOGLOBIN 33 PG (26.0-33.0); MEAN CORPUSCULAR HGB CONC 34 g/dl (31.0-36.0); MEAN CORPUSCULAR VOLUME 98 fL (82-100); MONOCYTES # (AUTO) 0.9 /CMM (0.1-1.30); NEUTROPHILS # (AUTO) 10.1 /CMM (1.8-8.9); NEUTROPHILS % (AUTO) 89.9 % (43.0-81.0); PLATELET COUNT (AUTO) 195 /CMM (150-450); RDW COEFFICIENT OF VARIATION 18.1 (11.5-15.0); RED BLOOD CELL COUNT(AUTO) 2.52 MIL/uL (4.0-5.2); WHITE BLOOD COUNT (AUTO) 11.2 K/uL (4.3-11.0)
[2017-01-27 05:11] LABS: CALCIUM, SERUM 7.8 mg/dL (8.5-10.1); CREATININE 5.6 mg/dL (0.6-1.3); POTASSIUM 4.9 mmol/L (3.5-5.1)
[2017-01-27 05:42] LABS: LYMPHOCYTES % (MANUAL) 3 % (16-48); MONOCYTES % (MANUAL) 6 % (0-11.0); NEUTROPHILS % (MANUAL) 91 (42-76)
[2017-01-27] MEDS ORDERED: PROPOFOL 100 ML IV ONE (06:09)
--- NOTE | 2017-01-27 08:00 | NUR ---
MEASUREMENT TECHNICIAN; ASSESSMENT RECEIVED PT VENTED VIA ETT, SEE FLOW SHEET FOR VENT SETTINGS. PT S/P CODE BLUE. PT SEDATED ON DIPRIVAN DRIP AT 35MCG/KG/MIN. INFUSING INTO LEFT UPPER ARM SHOULDER AREA 22G. WILL ORDER FOR MIDLINE PLACEMENT. OLD FISTULA SITE TO LEFT UPPER ARM WITH NO BRUITT OR THRILL. LEFT UPPER CHEST HD ASSESS. PT ANURIC NO DISTRESS NOTED WILL CONTINUE TO MONITOR.
[2017-01-27 08:08] LABS: TROPONIN I 0.109 ng/mL (0.00-0.056)
[2017-01-27] MEDS: PROSOURCE / PROSTAT (PYXIS) 30 ML UDC GT SCH ×2 (08:12→17:00)
[2017-01-27] MEDS: LEVOTHYROXINE SODIUM 100 MCG TABLET GT SCH (08:12)
[2017-01-27] MEDS: DOCUSATE SODIUM LIQ 100 MG/10 ML UDC GT SCH (08:12)
[2017-01-27] MEDS: LEVETIRACETAM SOL (5 ML) 100 MG/ML UDC GT SCH ×2 (08:12→17:00)
[2017-01-27] MEDS: LACTOBACILLUS RHAMNOSUS GG 1 EACH CAP.SPRINK GT SCH ×2 (08:13→17:00)
[2017-01-27] MEDS: THIAMINE HCL 100 MG TABLET GT SCH (08:13)
[2017-01-27] MEDS: PANTOPRAZOLE 40 MG/PACK PACK GT SCH (08:13)
[2017-01-27] MEDS: HEPARIN SODIUM, PORCINE 5000 UNITS/1 ML VIAL SQ SCH ×2 (08:13→21:17)
[2017-01-27] MEDS: VIT B CMPLX 3/FA/VIT C/BIOTIN 1 TAB TABLET GT SCH (08:13)
[2017-01-27] MEDS: CHOLECALCIFEROL 1,000 UNIT TABLET (VIT D3) GT SCH (08:13)
[2017-01-27] MEDS: Z GUARD REMEDY 2 OZ OINT TP SCH (08:14)
[2017-01-27] MEDS: OLANZAPINE 5 MG TABLET GT SCH ×2 (08:14→17:00)
[2017-01-27] MEDS ORDERED: IV SET PRIMARY PUMP SET 1 EA INFUS.SET MC ONE ×2 (08:36→12:22)
[2017-01-27] MEDS ORDERED: SECONDARY IV SET 1 EA INFUS.SET MC ONE (08:36)
[2017-01-27] MEDS ORDERED: EPINEPHRINE (1:10,000) SYRINGE 1 MG/10 ML DISP.SYRIN IVP ONE (09:44)
[2017-01-27] MEDS: MEROPENEM 500 MG in IV NS 0.9% 50 ML IV SCH ×2 (10:09→21:10)
[2017-01-27] MEDS: HYDROCORTISONE 5 MG TABLET GT SCH ×2 (10:09→21:15)
--- NOTE | 2017-01-27 11:00 | NUR ---
LIBRARY CIRCULATION ASSISTANT; SEDATION VACATION DIPRIVAN HAS BEEN OFF FOR ABOUT 30 MIN PT OPENS EYES, BUT UNABLE TO TRACK OR FOLLOW COMMANDS. PT RESPIRATORY RATE INCREASED TO 30BPM. APPEARS TO BE AGITATED BITTING ON ETT. DIPRIVAN TURNED BACK ON FOR SEDATION AND COMFORT. WILL CONTINUE TO MONITOR CLOSELY
--- NOTE | 2017-01-27 11:42 | NUR ---
TIRE BUFFER; PULMONARY DR. RUTLEDGE AT BEDSIDE UPDATE WAS GIVEN. DISCUSSED REGARDING PT S/P CODE BLUE AND BEING A HARD INTUBATION. DR. RUTLEDGE REQUEST TO SPEAK WITH FAMILY REGARDING PLAN OF CARE AND THE NEED TO HAVE TRACH FOR [facility] CARE. UNABLE TO REACH FAMILY, SON ROSCOE, MESSAGE LEFT ON ANSWERING MACHINE.
--- NOTE | 2017-01-27 12:15 | NUR ---
POULTRY BONER; PULMONARY PTS SON ROSCOE, CALLED BACK UPDATE WAS GIVEN. DISCUSSED CODE STATUS AND THAT PT IS S/P CODE BLUE. PT CONTINUES TO WANT PT FULL CODE STATUS. DR. RUTLEDGE WAS ABLE TO SPEAK WITH SON AND GIVE UPDATE. DISCUSSED THAT PT WAS A HARD INTUBATION AND THE NEED FOR TRACH PLACEMENT. SON AGREED TO TRACH PLACEMENT. CONSENT VERIFIED WITH CHARGE NURSE Veronika ABRAHAM RN.
[2017-01-27 13:49] LABS: ABG BASE EXCESS -1.3 mmol/L; ABG OXYGEN SATURATION 94.1 % (92.0-98.5); ABG PCO2 38.4 mmHg (35.0-45.0); ABG PO2 76.6 mmHg (75.0-100.0); AaDO2 128.3 mmHg; COHb 1.8 % (0.5-1.5); MetHb 0.7 % (0.0-1.5); O2Hb 91.7 % (94.0-97.0); PEEP,BG 5 cm H2O; SITE, ABG Right Radial; VT, ABG 550 mL
[2017-01-27] MEDS: VANCOMYCIN 500 MG in IV D5W 100 ML IV PRN (18:31)
[2017-01-27] MEDS ORDERED: LIDOCAINE MPF 1%-EPI 1:200,000 30 ML VIAL IJ ONE (18:54)
[2017-01-27] MEDS ORDERED: ROCURONIUM BROMIDE 50 MG/5 ML ONE (19:14)
[2017-01-27] MEDS ORDERED: FENTANYL PF 100MCG/2ML AMPUL ONE (19:14)
--- NOTE | 2017-01-27 19:25 | NUR ---
COATER HAND: PT TAKEN TO O.R. FOR TRACH PLACEMENT WT NO ACUTE DISTRESS.
[2017-01-27] MEDS ORDERED: CELLULOSE,OXIDIZED 1 EA PACK MC ONE (20:06)
[2017-01-27] MEDS ORDERED: SEVOFLURANE 250 ML BOTTLE IH ONE (20:10)
--- NOTE | 2017-01-27 20:30 | NUR ---
SED HIGH SCHOOL TEACHER: PT CAME BACK FROM O.R. S/P TRACH PLACEMENT WT ANTONIOLEY #6. NO ACUTE DISTRESS, NO EVIDENCE OF DISCOMFORT. NO ACTIVE BLEEDING ON TRACH SITE. PER ANESTHESIOLOGIST, WAS GIVEN ROCURONIUM THAT'S WHY PT ISN'T MOVING YET. ALSO SAID TO CONTINUE DIPRIVAN AT THIS TIME. STARTED AT 25MCG/KG/MIN. SR ON MONITOR. 02 SAT 95%. AFEBRILE. WT ELEVATED SBP IN THE 160s. WILL CONTINUE TO MONITOR.
--- NOTE | 2017-01-27 21:00 | NUR ---
SURGICAL GARMENT FITTER: 02 SAT BET. 93-94%. FI02 INCREASED TO 40%. ORALLY SUCTION WT LARGE AMT. OF CLEAR THIN SECRETIONS. BLOODY SECRETIONS NOTED DURING TRACHEAL SUCTIONING. SLIGHT BLEEDING NOTED AT TRACH SITE.
[2017-01-27] MEDS: HYDROCODONE/APAP 5/325MG 1 EACH TABLET GT PRN (21:16)
--- NOTE | 2017-01-27 21:30 | NUR ---
INFECTIOUS DISEASES PHYSICIAN: GIVEN NORCO FOR FACIAL GRIMACE AND ELEVATED BP. RESTARTED FEEDING AT 20ML/HR. ALL DUE MEDS GIVEN ORDERED.
[2017-01-27] MEDS: RENAL NOVASOURCE 1,000 ML BOTTLE GT PRN (21:31)
--- NOTE | 2017-01-27 21:35 | NUR ---
CONCRETE SPREADER: FI02 INCREASED TO 45% SAT WAS STILL BET. 94-95%
--- NOTE | 2017-01-27 23:32 | NUR ---
PT TRACHED ON MECHANICAL VENT W/ SETTINGS PER MD. VENT IN RED OUTLET, AMBUBAG AT BEDSIDE, VENT ALARMS CHECKED AND AUDIBLE. TRACH TUBE SECURE, PATENT. PT SX'ED AND LAVAGED PRN. NO RESP DISTRESS NOTED. PLAN IS TO CONTINUE CARE W/ CURRENT MD ORDERS AND MONITOR FOR CHANGES Addendum: 01/27/17 at 2332 by LIDYA ANAND RT Amended: Links added.
[2017-01-28] VITALS (35 sets, daily range): BP systolic 103–161; BP diastolic 49–93
[2017-01-28] MEDS: ALBUTEROL FS 2.5 MG/0.5 ML VIAL.NEB NEB SCH ×4 (01:05→20:17)
[2017-01-28] MEDS: IPRATROPIUM NEB FS 0.5 MG/2.5 ML AMPUL.NEB NEB SCH ×4 (01:05→20:17)
[2017-01-28] MEDS ORDERED: IV SET PRIMARY PUMP SET 1 EA INFUS.SET MC ONE ×2 (01:11→15:20)
[2017-01-28] MEDS: PROPOFOL 100 ML IV PRN (01:17)
[2017-01-28 04:37] LABS: BASOPHILS % (AUTO) 0.4 % (0.0-2.0); EOSINOPHILS # (AUTO) 0.2 /CMM (0.0-0.7); EOSINOPHILS % (AUTO) 2.1 % (0.0-6.0); HEMATOCRIT 29 % (33-45); HEMOGLOBIN 9.5 g/dL (11.5-14.8); LYMPHOCYTES # (AUTO) 0.4 /CMM (0.8-4.8); LYMPHOCYTES % (AUTO) 5.1 % (20.0-44.0); MEAN CORPUSCULAR HEMOGLOBIN 32 PG (26.0-33.0); MEAN CORPUSCULAR HGB CONC 33 g/dl (31.0-36.0); MEAN CORPUSCULAR VOLUME 98 fL (82-100); MONOCYTES # (AUTO) 0.7 /CMM (0.1-1.30); MONOCYTES % (AUTO) 9.9 % (2.0-12.0); NEUTROPHILS # (AUTO) 5.9 /CMM (1.8-8.9); NEUTROPHILS % (AUTO) 82.5 % (43.0-81.0); PLATELET COUNT (AUTO) 239 /CMM (150-450); RDW COEFFICIENT OF VARIATION 18.2 (11.5-15.0); RED BLOOD CELL COUNT(AUTO) 2.94 MIL/uL (4.0-5.2); WHITE BLOOD COUNT (AUTO) 7.2 K/uL (4.3-11.0)
[2017-01-28 04:51] LABS: TROPONIN I 0.042 ng/mL (0.00-0.056)
[2017-01-28 04:53] LABS: ALBUMIN 2.9 g/dL (3.4-5.0); BILIRUBIN,TOTAL 0.6 mg/dL (0.2-1.0); CALCIUM, SERUM 7.8 mg/dL (8.5-10.1); CREATININE 4.4 mg/dL (0.6-1.3); MAGNESIUM 2.4 mg/dL (1.8-2.4); PHOSPHORUS 4.1 mg/dL (2.5-4.9); POTASSIUM 4.5 mmol/L (3.5-5.1); TOTAL PROTEIN, SERUM 7.4 g/dL (6.4-8.2)
--- NOTE | 2017-01-28 05:00 | NUR ---
DIETARY COOK: GTF TOLERATING WELL NOW AT 35 ML/HR. TRACH SITE STILL NOTED WT MINIMAL BLEEDING. NO ACUTE DISTRESS. 02 SAT 96% AND ABOVE.
--- NOTE | 2017-01-28 07:30 | NUR ---
ICU/RN: PT RECEIVED ON TRACH VENT; TOLERATING CURRENT SETTINGS, MINIMAL BLEEDING NOTED WITH BLOOD TINGED SECRETIONS WITH SUCTIONING. NO ACTIVE BLEEDING NOTED. DIPRIVAN TURNED OFF FOR SEDATION VACATION. GIFTY CHEST HD CATH DRESSING C/D/I, BING MIDLINE DRESSING FLUSHED AND PATENT. TUBE FEEDING OFF, GT CLAMPED. WILL CONT TO MONITOR PT.
[2017-01-28] MEDS: LEVETIRACETAM SOL (5 ML) 100 MG/ML UDC GT SCH ×2 (08:11→16:43)
[2017-01-28] MEDS: LEVOTHYROXINE SODIUM 100 MCG TABLET GT SCH (08:11)
[2017-01-28] MEDS: LACTOBACILLUS RHAMNOSUS GG 1 EACH CAP.SPRINK GT SCH ×2 (08:11→16:43)
[2017-01-28] MEDS: OLANZAPINE 5 MG TABLET GT SCH ×2 (08:11→16:45)
[2017-01-28] MEDS: DOCUSATE SODIUM LIQ 100 MG/10 ML UDC GT SCH (08:11)
[2017-01-28] MEDS: PANTOPRAZOLE 40 MG/PACK PACK GT SCH (08:11)
[2017-01-28] MEDS: MEROPENEM 500 MG in IV NS 0.9% 50 ML IV SCH ×2 (08:11→20:28)
[2017-01-28] MEDS: HYDROCORTISONE 5 MG TABLET GT SCH ×2 (08:11→21:32)
[2017-01-28] MEDS: VIT B CMPLX 3/FA/VIT C/BIOTIN 1 TAB TABLET GT SCH (08:11)
[2017-01-28] MEDS: Z GUARD REMEDY 2 OZ OINT TP SCH (08:12)
[2017-01-28] MEDS: CHOLECALCIFEROL 1,000 UNIT TABLET (VIT D3) GT SCH (08:12)
[2017-01-28] MEDS: PROSOURCE / PROSTAT (PYXIS) 30 ML UDC GT SCH ×2 (08:13→16:44)
[2017-01-28] MEDS: THIAMINE HCL 100 MG TABLET GT SCH (08:13)
[2017-01-28] MEDS: HEPARIN SODIUM, PORCINE 5000 UNITS/1 ML VIAL SQ SCH ×2 (08:15→20:39)
--- NOTE | 2017-01-28 08:15 | NUR ---
ICU/RN: DUE MEDS ADMINISTERED VIA NGT. NEURO STATUS ASSESSED, ONLY RESPONSIVE TO LIGHT TOUCH, OPENS EYES WITH PUPILLARY REFLEXES, UNABLE TO FOLLOW COMMANDS. DR RUTLEDGE UPDATED AT BEDSIDE.
[2017-01-28 08:22] LABS: ABG BASE EXCESS 2.3 mmol/L; ABG OXYGEN SATURATION 96.8 % (92.0-98.5); ABG PCO2 37.9 mmHg (35.0-45.0); ABG PH 7.458 (7.350-7.450); ABG PO2 96.2 mmHg (75.0-100.0); AaDO2 181.5 mmHg; COHb 1.5 % (0.5-1.5); MetHb 0.9 % (0.0-1.5); O2Hb 94.5 % (94.0-97.0); PEEP,BG 5 cm H2O; SITE, ABG Right Radial; VENT MODE, BG A/C; VT, ABG 550 mL
[2017-01-28] MEDS: RENAL NOVASOURCE 1,000 ML BOTTLE GT PRN (14:26)
--- NOTE | 2017-01-28 15:00 | NUR ---
ICU/RN: BED BATH RENDERED, WOUND CARE RENDERED. KCI MATTRESS APPLIED. TOLERATED WELL. WILL CONT TO MONITOR PT
--- NOTE | 2017-01-28 19:10 | NUR ---
ICU/RN: REMAINS COMFORTABLE ON CURRENT VENT SETTINGS, NO FACIAL GRIMACING OR DISTRESS NOTED. NO CHANGE IN NEURO STATUS. REMAINS RESPONSIVE TO NAME, BILAT UPPER AND LOWER EXTREMITIES REMAIN FLACID. CARE ENDORSED TO PM RN FOR ALMA ROSA.
[2017-01-28] MEDS: HYDROCODONE/APAP 5/325MG 1 EACH TABLET GT PRN (21:31)
[2017-01-28] MEDS ORDERED: IV NS 0.9% 250 ML IV ONE (21:53)
[2017-01-29] VITALS (25 sets, daily range): BP systolic 133–172; BP diastolic 68–95
[2017-01-29] MEDS: IV NS 0.9% 250 ML IV PRN (01:03)
[2017-01-29] MEDS: IPRATROPIUM NEB FS 0.5 MG/2.5 ML AMPUL.NEB NEB SCH ×4 (01:16→19:23)
[2017-01-29] MEDS: ALBUTEROL FS 2.5 MG/0.5 ML VIAL.NEB NEB SCH ×4 (01:16→19:23)
[2017-01-29 05:20] LABS: BASOPHILS % (AUTO) 0.5 % (0.0-2.0); EOSINOPHILS # (AUTO) 0.2 /CMM (0.0-0.7); EOSINOPHILS % (AUTO) 2.8 % (0.0-6.0); HEMATOCRIT 27 % (33-45); HEMOGLOBIN 8.8 g/dL (11.5-14.8); LYMPHOCYTES # (AUTO) 0.5 /CMM (0.8-4.8); LYMPHOCYTES % (AUTO) 6.3 % (20.0-44.0); MEAN CORPUSCULAR HEMOGLOBIN 32 PG (26.0-33.0); MEAN CORPUSCULAR HGB CONC 33 g/dl (31.0-36.0); MEAN CORPUSCULAR VOLUME 100 fL (82-100); MONOCYTES # (AUTO) 1.1 /CMM (0.1-1.30); MONOCYTES % (AUTO) 13.4 % (2.0-12.0); NEUTROPHILS # (AUTO) 6.3 /CMM (1.8-8.9); PLATELET COUNT (AUTO) 262 /CMM (150-450); RED BLOOD CELL COUNT(AUTO) 2.72 MIL/uL (4.0-5.2); WHITE BLOOD COUNT (AUTO) 8.2 K/uL (4.3-11.0)
[2017-01-29] MEDS: HYDROCODONE/APAP 5/325MG 1 EACH TABLET GT PRN (05:29)
[2017-01-29 05:35] LABS: ALBUMIN 2.6 g/dL (3.4-5.0); BILIRUBIN,TOTAL 0.5 mg/dL (0.2-1.0); CALCIUM, SERUM 7.5 mg/dL (8.5-10.1); MAGNESIUM 2.5 mg/dL (1.8-2.4); PHOSPHORUS 4.6 mg/dL (2.5-4.9); POTASSIUM 4.5 mmol/L (3.5-5.1); TOTAL PROTEIN, SERUM 6.8 g/dL (6.4-8.2)
--- NOTE | 2017-01-29 06:40 | NUR ---
SHEET ROLLER OPERATOR: NO SIGNIFICANT ALMA ROSA DURING THE SHIFT. ON S/P TRACH PLACEMENT AND TOLERATING VENT SETTINGS ORDERED. 02 SAT ABOVE 96% WT FI02 DECREASED AT 40%. REMAINED OBTUNDED WT NO ACUTE DISTRESS. MINIMAL BLEEDING NOTED ON TRACH STOMA SITE. GIVEN NORCO X 2 FOR FACIAL GRIMACING AND ELEVATED BP DURING ADL/REPOSITIONING AND WT GOOD EFFECT AFTER AN HOUR (0/10). TOLERATING GTF WT NO RESIDUAL AND NOW REACHED TOTAL DOSE LIMIT. HOB ELEVATED AND SAFETY PRECAUTION NOTED AT ALL TIMES.
[2017-01-29] MEDS: LEVETIRACETAM SOL (5 ML) 100 MG/ML UDC GT SCH ×2 (08:10→17:09)
[2017-01-29] MEDS: CHOLECALCIFEROL 1,000 UNIT TABLET (VIT D3) GT SCH (08:11)
[2017-01-29] MEDS: HYDROCORTISONE 5 MG TABLET GT SCH ×2 (08:11→21:30)
[2017-01-29] MEDS: LEVOTHYROXINE SODIUM 100 MCG TABLET GT SCH (08:11)
[2017-01-29] MEDS: VIT B CMPLX 3/FA/VIT C/BIOTIN 1 TAB TABLET GT SCH (08:11)
[2017-01-29] MEDS: PANTOPRAZOLE 40 MG/PACK PACK GT SCH (08:11)
[2017-01-29] MEDS: DOCUSATE SODIUM LIQ 100 MG/10 ML UDC GT SCH (08:11)
[2017-01-29] MEDS: OLANZAPINE 5 MG TABLET GT SCH ×2 (08:12→17:09)
[2017-01-29] MEDS: HEPARIN SODIUM, PORCINE 5000 UNITS/1 ML VIAL SQ SCH ×2 (08:12→21:34)
[2017-01-29] MEDS: LACTOBACILLUS RHAMNOSUS GG 1 EACH CAP.SPRINK GT SCH ×2 (08:12→17:09)
[2017-01-29] MEDS: THIAMINE HCL 100 MG TABLET GT SCH (08:12)
[2017-01-29] MEDS: Z GUARD REMEDY 2 OZ OINT TP SCH (08:19)
[2017-01-29] MEDS: PROSOURCE / PROSTAT (PYXIS) 30 ML UDC GT SCH ×2 (08:19→17:09)
[2017-01-29] MEDS: MEROPENEM 500 MG in IV NS 0.9% 50 ML IV SCH ×2 (08:19→20:16)
--- NOTE | 2017-01-29 15:00 | NUR ---
CAIO RN NOTE RECEIVED PATIENT FROM ICU , AWAKE ABUT ABTUNDED, UNABLE TO FOLLOW ANY COMMAND , WITH TRACH TO VENT SETTING ORDERED , AMBU BAG AT HOB , WITH G TUBE FEEDING ORDERED , KEEP HOB ELEVATED AT ALL TIME , ON TELE MONITOR SR , ON KCI MATRES, R T WRIST HL INTACT RT UPPER ARM MID LINE, BED IN LOWEST AND LOCKED POSITION , WILL CONT TO MONITOR CLOSELY
[2017-01-29] MEDS: RENAL NOVASOURCE 1,000 ML BOTTLE GT PRN (16:18)
--- NOTE | 2017-01-29 16:54 | NUR ---
CAIO RN NOTE PER DIETITIAN G TUBE RATE CHANGED TO 30 ML PER HOUR, ALL NEEDS ATTENDED, WILL CONT TO MONITOR CLOSELY
--- NOTE | 2017-01-29 18:55 | NUR ---
CAIO RN NOTE CONT ON G TUBE FEEDING AL NEEDS ATTENDED NOT IN ACUTE DISTRESS, WILL CONT TO MONITOR CLOSELY
--- NOTE | 2017-01-29 20:00 | NUR ---
CAIO RN NOTE RECEIVED PT IN BED OBTUNDED. REMAIN ON TRACH/VENT TOLERATING THE SETTINGS WELL. ON TELE SR 68. GTF NOVASOURCE INFUSING AT 30 ML/HR, 0 ML RESIDUAL NOTED. RT WRIST #20 G WITH TKO NS, NO S/S OF INFILTRATION NOTED. LCW WITH SPENCER CATH INTACT AND PATENT. REPOSITION HER FOR SKIN MANAGEMENT. KEPT HOB ELEVATED. SIDE RAILS UP X 2 AND CALL LIGHT WITHIN REACH. VSS. CONTINUE TO MONITOR HER.
[2017-01-29] MEDS ORDERED: SECONDARY IV SET 1 EA INFUS.SET MC ONE (20:11)
[2017-01-29] MEDS ORDERED: IV SET PRIMARY PUMP SET 1 EA INFUS.SET MC ONE (20:11)
[2017-01-30] VITALS: BP 152/84
[2017-01-30] MEDS: IPRATROPIUM NEB FS 0.5 MG/2.5 ML AMPUL.NEB NEB SCH ×4 (01:30→19:16)
[2017-01-30] MEDS: ALBUTEROL FS 2.5 MG/0.5 ML VIAL.NEB NEB SCH ×4 (01:30→19:16)
[2017-01-30 04:00] VITALS: BP 148/86
--- NOTE | 2017-01-30 06:30 | NUR ---
CAIO RN NOTE PT IN BED OBTUNDED. NO DISTRESS OR DISCOMFORT NOTED. NO S/S OF PAIN NOTED. IVF TKO INFUSING WELL, NO S/S OF INFILTRATION NOTED. ON TELE SR 64. SUCTIONED HER FREQUENTLY, SMALL AMOUNT OF THIN SECRETION NOTED. SIDE RAILS UP X 3 AND CALL LIGHT WITHIN REACH. REPOSITION HER Q2H, KEPT HER DRY AND CLEAN. ALL NEEDS ATTENDED. WILL ENDORSE TO DAY SHIFT NURSE FOR CONTINUE TO CARE.
--- NOTE | 2017-01-30 06:32 | NUR ---
CAIO RN NOTE PT IN BED AWAKE. ON BIPAP TOLERATING IT WELL. NO DISTRESS OR DISCOMFORT NOTED. NO S/S OF PAIN NOTED. H/L INTACT AND PATENT. ON TELE SR 71. F/C INTACT AND PATENT DRAINING YELLOWISH COLOR URINE. SIDE RAILS UP X 3 AND CALL LIGHT WITHIN REACH. REPOSITION HER Q2H, KEPT HER DRY AND CLEAN. ALL NEEDS ATTENDED. WILL ENDORSE TO DAY SHIFT NURSE FOR CONTINUE TO CARE Addendum: 01/30/17 at 0635 by TERESA APARICIO RN WRONG PT CHARTING.
[2017-01-30 06:35] LABS: BASOPHILS % (AUTO) 0.3 % (0.0-2.0); EOSINOPHILS # (AUTO) 0.2 /CMM (0.0-0.7); EOSINOPHILS % (AUTO) 3.4 % (0.0-6.0); HEMATOCRIT 26 % (33-45); HEMOGLOBIN 8.6 g/dL (11.5-14.8); LYMPHOCYTES # (AUTO) 0.6 /CMM (0.8-4.8); MEAN CORPUSCULAR HEMOGLOBIN 33 PG (26.0-33.0); MEAN CORPUSCULAR HGB CONC 33 g/dl (31.0-36.0); MEAN CORPUSCULAR VOLUME 99 fL (82-100); MONOCYTES # (AUTO) 0.8 /CMM (0.1-1.30); MONOCYTES % (AUTO) 12.3 % (2.0-12.0); NEUTROPHILS # (AUTO) 5.1 /CMM (1.8-8.9); PLATELET COUNT (AUTO) 263 /CMM (150-450); RDW COEFFICIENT OF VARIATION 17.5 (11.5-15.0); RED BLOOD CELL COUNT(AUTO) 2.61 MIL/uL (4.0-5.2); WHITE BLOOD COUNT (AUTO) 6.8 K/uL (4.3-11.0)
[2017-01-30 06:50] LABS: ALBUMIN 2.5 g/dL (3.4-5.0); BILIRUBIN,TOTAL 0.6 mg/dL (0.2-1.0); CALCIUM, SERUM 7.3 mg/dL (8.5-10.1); CREATININE 6.9 mg/dL (0.6-1.3); MAGNESIUM 2.5 mg/dL (1.8-2.4); PHOSPHORUS 5.7 mg/dL (2.5-4.9); POTASSIUM 4.4 mmol/L (3.5-5.1); TOTAL PROTEIN, SERUM 6.7 g/dL (6.4-8.2)
--- NOTE | 2017-01-30 07:03 | NUR ---
CAIO RN NOTE CRITICAL LAB VALUE OF BUN 98 REPORTED TO ME BY ELINA TODD TACH. LEFT THE MESSAGE FOR DR HUBER ALSO INFORMED DAY SHIFT NURSE TO FOLLOW UP.
--- NOTE | 2017-01-30 07:30 | NUR ---
INITIAL NOTE RESTING IN BED. OBTUNDED. RESPONDS TO DEEP PAIN ONLY. BREATHING EVEN AND UNLABORED WITH MECH VENT. GT PATENT, 10 ML RESIDUAL. ABD SOFT. GENERALIZED EDEMA. R HAND IV AND JAMES MIDLINE PATENT, NO COMPLICATIONS. LCW SPENCER DRESSING CDI.PLAN TO WEAN FROM VENT DISCUSSED WITH RT. DR. LOPEZ AWARE OF BUN RESULT. CALL LIGHT IN REACH.
--- NOTE | 2017-01-30 07:53 | NUR ---
PT RECEIVED TRACHED ON MECHANICAL VENT W/ AC SETTINGS PER MD. VENT IN RED OUTLET, AMBUBAG AT BEDSIDE, VENT ALARMS CHECKED AND AUDIBLE. TRACH TUBE SECURE, PATENT. PT SX'ED AND LAVAGED PRN. NO RESP DISTRESS NOTED. PT PLACED ON SIMV 4 PS 12 +5 PER MD. TOLERATED WELL AT THIS TIME. PLAN IS TO CONTINUE W/ CURRENT CARE PER MD ORDERS AND MONITOR FOR CHANGES IN STATUS. Addendum: 01/30/17 at 0843 by AUSTYN UREÑA RT Amended: Links added.
[2017-01-30 08:00] VITALS: BP 135/75
[2017-01-30] MEDS: MEROPENEM 500 MG in IV NS 0.9% 50 ML IV SCH ×2 (08:18→21:17)
[2017-01-30] MEDS: LACTOBACILLUS RHAMNOSUS GG 1 EACH CAP.SPRINK GT SCH ×2 (08:18→16:02)
[2017-01-30] MEDS: OLANZAPINE 5 MG TABLET GT SCH ×2 (08:19→16:02)
[2017-01-30] MEDS: HYDROCORTISONE 5 MG TABLET GT SCH ×2 (08:19→21:19)
[2017-01-30] MEDS: DOCUSATE SODIUM LIQ 100 MG/10 ML UDC GT SCH (08:19)
[2017-01-30] MEDS: THIAMINE HCL 100 MG TABLET GT SCH (08:19)
[2017-01-30] MEDS: VIT B CMPLX 3/FA/VIT C/BIOTIN 1 TAB TABLET GT SCH (08:19)
[2017-01-30] MEDS: LEVETIRACETAM SOL (5 ML) 100 MG/ML UDC GT SCH ×2 (08:19→16:02)
[2017-01-30] MEDS: CHOLECALCIFEROL 1,000 UNIT TABLET (VIT D3) GT SCH (08:19)
[2017-01-30] MEDS: LEVOTHYROXINE SODIUM 100 MCG TABLET GT SCH (08:19)
[2017-01-30] MEDS: PANTOPRAZOLE 40 MG/PACK PACK GT SCH (08:20)
[2017-01-30] MEDS: HEPARIN SODIUM, PORCINE 5000 UNITS/1 ML VIAL SQ SCH ×2 (08:21→21:18)
[2017-01-30] MEDS: Z GUARD REMEDY 2 OZ OINT TP SCH (08:23)
[2017-01-30] MEDS: PROSOURCE / PROSTAT (PYXIS) 30 ML UDC GT SCH ×2 (08:27→16:02)
[2017-01-30 12:00] VITALS: BP_SYST 141; BP_SYST 155; BP_DIAS 73; BP_DIAS 84
[2017-01-30 13:31] LABS: ABG OXYGEN SATURATION 97.6 % (92.0-98.5); ABG PH 7.401 (7.350-7.450); ABG PO2 117.9 mmHg (75.0-100.0); AaDO2 124.8 mmHg; COHb 0.8 % (0.5-1.5); MetHb 0.6 % (0.0-1.5); O2Hb 96.2 % (94.0-97.0); PEEP,BG 5 cm H2O; SITE, ABG Right Radial; VENT MODE, BG SIMV 4 550 PS12; VT, ABG 550 mL
[2017-01-30 16:00] VITALS: BP 133/87
[2017-01-30] MEDS ORDERED: SECONDARY IV SET 1 EA INFUS.SET MC ONE ×2 (18:43→21:41)
[2017-01-30] MEDS ORDERED: ALBUMIN 25% 25 GM in PREMIX 1 EA IV PRN (19:00)
--- NOTE | 2017-01-30 19:33 | NUR ---
END OF SHIFT NO DECLINE THIS SHIFT. TOLERAting simv well. no new skin break down. invasive sites checked frequently, no complications. receiving HD right now. handed off report to night nurse.
[2017-01-30 20:00] VITALS: BP 107/58
--- NOTE | 2017-01-30 20:00 | NUR ---
CAIO RN NOTE RECEIVED PT IN BED EYES OPEN OBTUNDED. DIALYSIS IN PROGRESS AT THIS TIME. PT RESPONDS TO PAINFUL STIMULATION. NO DISTRESS OR DISCOMFORT NOTED. TRACH INTACT AND PT ON MECH VENT. TOLERATING THE SETTINGS WELL. GTF INFUSING FIBERSOURCE AT 55 ML/HR. 5 ML RESIDUAL NOTED. KEPT HER DRY AND CLEAN. REPOSITION HER FOR SKIN MANAGEMENT. IV SITE RT UPPER ARM WITH MIDLINE TKO INTACT AND PATENT. ALSO LCW WITH HD INTACT AND PATENT. DIALYSIS NURSE AT BED SIDE. ON TELE SR HR 80. SIDE RAILS UP X 3 AND CALL LIGHT WITHIN REACH. VSS. CONTINUE TO MONITOR HER.
[2017-01-30] MEDS: RENAL NOVASOURCE 1,000 ML BOTTLE GT PRN (21:53)
[2017-01-30] MEDS: VANCOMYCIN 500 MG in IV D5W 100 ML IV PRN (21:54)
[2017-01-31] VITALS (10 sets, daily range): BP systolic 145–208; BP diastolic 85–107
[2017-01-31] MEDS ORDERED: NITROGLYCERIN PACKET 1 GM PACKET TOP PRN (00:30)
--- NOTE | 2017-01-31 00:30 | NUR ---
CAIO RN NOTE PT BLOODPRESSURE NOTED WENT UP HIGH 206/[address] TINOCO PAGED AND RECEIVED NEW ORDER, ORDER NOTED AND CARRIED OUT.
[2017-01-31] MEDS ORDERED: NITROGLYCERIN PACKET 1 GM PACKET ONE (00:42)
--- NOTE | 2017-01-31 00:45 | NUR ---
CAIO RN NOTE NITRO PASTE 1 INCH APPLIED ON RCW FOR HIGH BP. CONTINUE TO MONITOR THE PT.
[2017-01-31] MEDS: ALBUTEROL FS 2.5 MG/0.5 ML VIAL.NEB NEB SCH ×4 (01:13→19:24)
[2017-01-31] MEDS: IPRATROPIUM NEB FS 0.5 MG/2.5 ML AMPUL.NEB NEB SCH ×4 (01:13→19:24)
--- NOTE | 2017-01-31 01:45 | NUR ---
CAIO RN NOTE B/P IS COMING DOWN TO 170/90 HR 83. CONTINUE TO MONITOR HER.
--- NOTE | 2017-01-31 06:16 | NUR ---
CAIO RN NOTE PT IN BED WITH EYES OPEN OBTUNDED., NO DISTRESS OR DISCOMFORT NOTED. NO S/S OF PAIN NOTED. ON TELE SR HR 72. IV SITE INTACT AND PATENT TKO NS, NO S/S OF INFILTRATION NOTED. GTF INFUSING WELL, NO RESIDUAL NOTED. KEPT HER DRY AND CLEAN. REPOSITION HER Q2H. ALL NEEDS ATTENDED. SIDE RAILS UP X 3 AND CALL LIGHT WITHIN REACH. WILL ENDORSE TO DAY SHIFT NURSE FOR CONTINUE TO CARE.
[2017-01-31] MEDS ORDERED: NITROGLYCERIN 30 GM TUBE TOP PRN (07:30)
[2017-01-31] MEDS: MEROPENEM 500 MG in IV NS 0.9% 50 ML IV SCH ×2 (08:22→20:47)
[2017-01-31] MEDS: HYDROCORTISONE 5 MG TABLET GT SCH ×2 (08:23→21:09)
[2017-01-31] MEDS: LEVETIRACETAM SOL (5 ML) 100 MG/ML UDC GT SCH ×2 (08:24→16:01)
[2017-01-31] MEDS: DOCUSATE SODIUM LIQ 100 MG/10 ML UDC GT SCH (08:24)
[2017-01-31] MEDS: VIT B CMPLX 3/FA/VIT C/BIOTIN 1 TAB TABLET GT SCH (08:24)
[2017-01-31] MEDS: PANTOPRAZOLE 40 MG/PACK PACK GT SCH (08:24)
[2017-01-31] MEDS: THIAMINE HCL 100 MG TABLET GT SCH (08:24)
[2017-01-31] MEDS: CHOLECALCIFEROL 1,000 UNIT TABLET (VIT D3) GT SCH (08:24)
[2017-01-31] MEDS: LEVOTHYROXINE SODIUM 100 MCG TABLET GT SCH (08:24)
[2017-01-31] MEDS: OLANZAPINE 5 MG TABLET GT SCH ×2 (08:24→16:01)
[2017-01-31] MEDS: HEPARIN SODIUM, PORCINE 5000 UNITS/1 ML VIAL SQ SCH ×2 (08:25→20:48)
[2017-01-31] MEDS: LACTOBACILLUS RHAMNOSUS GG 1 EACH CAP.SPRINK GT SCH ×2 (08:27→16:01)
[2017-01-31] MEDS: PROSOURCE / PROSTAT (PYXIS) 30 ML UDC GT SCH ×2 (08:27→16:01)
[2017-01-31] MEDS: Z GUARD REMEDY 2 OZ OINT TP SCH (09:00)
--- NOTE | 2017-01-31 20:00 | NUR ---
GRAIN PROCESSOR NOTE RECEIVED PT IN BED EYES OPEN OBTUNDED. PT RESPONDS TO PAINFUL STIMULATION. NO DISTRESS OR DISCOMFORT NOTED. TRACH INTACT/PATENT AND PT ON MECH VENT. TOLERATING THE SETTINGS WELL. GTF INFUSING NOVASOURCE AT 30 ML/HR. 5 ML RESIDUAL NOTED. KEPT HER DRY AND CLEAN. REPOSITION HER FOR SKIN MANAGEMENT. IV SITE RT UPPER ARM WITH MIDLINE TKO INTACT AND PATENT. ALSO LCW WITH HD INTACT AND PATENT. ON TELE SR HR 72. SIDE RAILS UP X 3 AND CALL LIGHT WITHIN REACH. CONTINUE TO MONITOR HER.
--- NOTE | 2017-01-31 20:47 | NUR ---
VISUAL BASIC PROGRAMMER NOTE NOTED PT WITH HIGH B/P 171/85 HR 76, APPLIED 1 INCH NITROGLYCERINE PASTE ORDERED. CONTINUE TO MONITOR HER.
--- NOTE | 2017-01-31 21:25 | NUR ---
PT TRACHED ON MECHANICAL VENT W/ SETTINGS PER MD. VENT IN RED OUTLET, AMBUBAG AT BEDSIDE, VENT ALARMS CHECKED AND AUDIBLE. TRACH TUBE SECURE, PATENT. PT SX'ED AND LAVAGED PRN. NO RESP DISTRESS NOTED. PLAN IS TO CONTINUE CARE W/ CURRENT MD ORDERS AND MONITOR FOR CHANGES Addendum: 01/31/17 at 2125 by LIDYA ANAND RT Amended: Links added.
--- NOTE | 2017-01-31 22:30 | NUR ---
CHAIRMAN PRESIDENT AND CHIEF EXECUTIVE OFFICER NOTE B/P CAME DOWN TO 158/88. CONTINUE TO MONITOR HER.
[2017-02-01] VITALS (9 sets, daily range): BP systolic 137–183; BP diastolic 74–99
[2017-02-01] MEDS: RENAL NOVASOURCE 1,000 ML BOTTLE GT PRN (00:59)
[2017-02-01] MEDS: IPRATROPIUM NEB FS 0.5 MG/2.5 ML AMPUL.NEB NEB SCH ×4 (01:24→19:42)
[2017-02-01] MEDS: ALBUTEROL FS 2.5 MG/0.5 ML VIAL.NEB NEB SCH ×4 (01:24→19:42)
--- NOTE | 2017-02-01 05:00 | NUR ---
MEDIA CENTER ASSISTANT NOTE BED BATH GIVEN. ALL NEEDS ATTENDED. REPOSITION HER Q2H, GTF INFUSING WELL, 0 ML RESIDUAL. ON TELE SR.
--- NOTE | 2017-02-01 06:40 | NUR ---
DUMPSTER OPERATOR NOTE RECEIVED PT IN BED EYES OPEN OBTUNDED. NO DISTRESS OR DISCOMFORT NOTED. TRACH INTACT/PATENT AND PT ON MECH VENT. TOLERATING THE SETTINGS WELL. MINOR BLEEDING SPOTS NOTED AROUND THE TRACH SITED. KEPT IT CLEAN AND DRY. GTF INFUSING NOVASOURCE AT 30 ML/HR. 0 ML RESIDUAL NOTED. KEPT HER DRY AND CLEAN. REPOSITION HER FOR SKIN MANAGEMENT. IV SITE RT UPPER ARM WITH MIDLINE TKO INTACT AND PATENT. ALSO LCW WITH HD INTACT AND PATENT. ON TELE SR HR 82. SIDE RAILS UP X 3 AND CALL LIGHT WITHIN REACH. WILL ENDORSE TO DAY SHIFT NURSE FOR CONTINUE TO CARE.
[2017-02-01 07:19] LABS: CALCIUM, SERUM 8.6 mg/dL (8.5-10.1); CREATININE 6.4 mg/dL (0.6-1.3); POTASSIUM 4.3 mmol/L (3.5-5.1)
[2017-02-01] MEDS: HEPARIN SODIUM, PORCINE 5000 UNITS/1 ML VIAL SQ SCH ×2 (08:54→21:40)
[2017-02-01] MEDS: VIT B CMPLX 3/FA/VIT C/BIOTIN 1 TAB TABLET GT SCH (08:54)
[2017-02-01] MEDS: LEVOTHYROXINE SODIUM 100 MCG TABLET GT SCH (08:54)
[2017-02-01] MEDS: PANTOPRAZOLE 40 MG/PACK PACK GT SCH (08:55)
[2017-02-01] MEDS: LACTOBACILLUS RHAMNOSUS GG 1 EACH CAP.SPRINK GT SCH ×2 (08:55→17:00)
[2017-02-01] MEDS: THIAMINE HCL 100 MG TABLET GT SCH (08:55)
[2017-02-01] MEDS: CHOLECALCIFEROL 1,000 UNIT TABLET (VIT D3) GT SCH (08:55)
[2017-02-01] MEDS: LEVETIRACETAM SOL (5 ML) 100 MG/ML UDC GT SCH ×2 (08:55→17:36)
[2017-02-01] MEDS: DOCUSATE SODIUM LIQ 100 MG/10 ML UDC GT SCH (08:55)
[2017-02-01] MEDS: HYDROCORTISONE 5 MG TABLET GT SCH ×2 (08:55→21:39)
[2017-02-01] MEDS ORDERED: SECONDARY IV SET 1 EA INFUS.SET MC ONE (09:21)
[2017-02-01] MEDS: MEROPENEM 500 MG in IV NS 0.9% 50 ML IV SCH ×2 (09:23→20:01)
[2017-02-01] MEDS: PROSOURCE / PROSTAT (PYXIS) 30 ML UDC GT SCH ×2 (09:29→17:37)
[2017-02-01] MEDS: OLANZAPINE 5 MG TABLET GT SCH ×2 (09:30→17:37)
[2017-02-01] MEDS: Z GUARD REMEDY 2 OZ OINT TP SCH (09:30)
[2017-02-01] MEDS ORDERED: ALTEPLASE CATHFLO 2 MG/VIAL IV ONE (10:30)
--- NOTE | 2017-02-01 19:15 | NUR ---
RN INITIAL NOTES RECEIVED PATIENT IN BED, NONVERBAL AND OBTUNDED. PATIENT NOT IN ANY DISTRESS, WITH TRACH, IN MIDLINE, C/D/I, ON MECH VENT. TOLERATING VENT SETTINGS WELL, NO DISTRESS, AIRWAY SUCTIONED NEEDED. SR WITH HR OF 73. GT FLUSHED AND KEPT PATENT, NO GASTRIC RESIDUAL, GTF INFUSING WELL. JAMES MIDLINE, FLUSHED AND PATENT, GOOD BLOOD RETURN NOTED. L CHESTWALL SPENCER CATH WITH DRESSING INTACT. PATIENT'S NEEDS ANTICIPATED AND MET. SAFETY AND COMFORT ENSURED. BED IN LOW AND LOCKED POSITION. CALL LIGHT IN REACH. WILL MONITOR CLOSELY.
[2017-02-02] VITALS (8 sets, daily range): BP systolic 126–158; BP diastolic 71–84
[2017-02-02] MEDS: ALBUTEROL FS 2.5 MG/0.5 ML VIAL.NEB NEB SCH ×4 (01:48→19:53)
[2017-02-02] MEDS: IPRATROPIUM NEB FS 0.5 MG/2.5 ML AMPUL.NEB NEB SCH ×4 (01:49→19:53)
[2017-02-02] MEDS ORDERED: SECONDARY IV SET 1 EA INFUS.SET MC ONE ×2 (03:32→08:45)
[2017-02-02] MEDS ORDERED: IV SET PRIMARY PUMP SET 1 EA INFUS.SET MC ONE (03:32)
[2017-02-02] MEDS: IV NS 0.9% 250 ML IV PRN (03:54)
[2017-02-02] MEDS: RENAL NOVASOURCE 1,000 ML BOTTLE GT PRN (03:55)
--- NOTE | 2017-02-02 06:55 | NUR ---
RN CLOSING NOTES PATIENT WITH NO ACUTE CHANGE IN CONDITION OBSERVED OVERNIGHT. AIRWAY SUCTIONED NEEDED, TOLERATED MECH VENT SETTINGS WELL. GTF INFUSING ORDERED, NO GASTRIC RESIDUAL NOTED. REMAINS SR AT 78. PATIENT TURNED AND REPOSITIONED. ALL DUE MEDS GIVEN ORDERED. JAMES MIDLINE INTACT AND FLUSHED. NEEDS ANTICIPATED AND MET. SAFETY AND COMFORT ENSURED. BED IN LOW AND LOCKED POSITION. WILL ENDORSE ACCORDINGLY FOR CONTINUITY OF CARE.
--- NOTE | 2017-02-02 07:00 | NUR ---
RN NOTES RECEIVED PATIENT ON BED , OBTUNDED, NON VERBAL ,VENT DEPENDENT, TOLERATING CURRENT VENT SETTING WELL, SR ON TELE , TOLERATING NOVASOURCE AT 30CC/ HR VIA GT WELL, NO RESIDUAL NOTED, JAMES MIDLINE SITE CDI, L CHEST WALL SPENCER CATH WITH DRESSING INTACT. SAFETY AND COMFORT ENSURED. BED IN LOWEST AND LOCKED POSITION. CALL LIGHT WITHIN EASY REACH. CONTINUE TO MONITOR PT CLOSELY AND NOTIFY MD FOR ANY SIGNIFICANT CHANGES .
[2017-02-02 07:21] LABS: CALCIUM, SERUM 8.4 mg/dL (8.5-10.1); POTASSIUM 4.3 mmol/L (3.5-5.1)
--- NOTE | 2017-02-02 07:32 | NUR ---
RT PT RECEIVED TRACHED ON THE VENT WITH NOTED SETTINGS. PT IS AWAKE BUT DOES NOT FOLLOW COMMANDS. VENT ALARMS ARE SET AND AUDIBLE WITH BVM BY BEDSIDE. COLORS CUSTODIAN CUFF PRESSURE NOTED. VENT IS PLUGGED INTO RED OUTLET. NO RESPIRATORY DISTRESS NOTED AT THIS TIME, WILL CONTINUE TO MONITOR. Addendum: 02/02/17 at 0921 by PAULINO MAGAÑA RT Amended: Links added.
[2017-02-02] MEDS: DOCUSATE SODIUM LIQ 100 MG/10 ML UDC GT SCH (08:30)
[2017-02-02] MEDS: LEVOTHYROXINE SODIUM 100 MCG TABLET GT SCH (08:30)
[2017-02-02] MEDS: CHOLECALCIFEROL 1,000 UNIT TABLET (VIT D3) GT SCH (08:31)
[2017-02-02] MEDS: LACTOBACILLUS RHAMNOSUS GG 1 EACH CAP.SPRINK GT SCH ×2 (08:31→17:05)
[2017-02-02] MEDS: HYDROCORTISONE 5 MG TABLET GT SCH ×2 (08:31→21:09)
[2017-02-02] MEDS: LEVETIRACETAM SOL (5 ML) 100 MG/ML UDC GT SCH ×2 (08:31→17:05)
[2017-02-02] MEDS: VIT B CMPLX 3/FA/VIT C/BIOTIN 1 TAB TABLET GT SCH (08:31)
[2017-02-02] MEDS: THIAMINE HCL 100 MG TABLET GT SCH (08:31)
[2017-02-02] MEDS: PANTOPRAZOLE 40 MG/PACK PACK GT SCH (08:31)
[2017-02-02] MEDS: OLANZAPINE 5 MG TABLET GT SCH ×2 (08:31→17:05)
[2017-02-02] MEDS: HEPARIN SODIUM, PORCINE 5000 UNITS/1 ML VIAL SQ SCH ×2 (08:32→21:13)
[2017-02-02] MEDS: PROSOURCE / PROSTAT (PYXIS) 30 ML UDC GT SCH ×2 (08:35→17:05)
[2017-02-02] MEDS: MEROPENEM 500 MG in IV NS 0.9% 50 ML IV SCH ×2 (08:35→20:42)
[2017-02-02] MEDS: Z GUARD REMEDY 2 OZ OINT TP SCH (09:40)
--- NOTE | 2017-02-02 18:00 | NUR ---
RN NOTES PT STABLE , MEDICATED PER MD ORDER ,TOLERATING TF WELL, NO SIGNIFICANT CHANGES NOTED ON THIS SHIFT .
[2017-02-02] MEDS: VANCOMYCIN 500 MG in IV D5W 100 ML IV PRN (19:36)
--- NOTE | 2017-02-02 19:45 | NUR ---
RN INITIAL NOTES PT IN BED WITH EYES CLOSED OBTUNDED., NO DISTRESS OR DISCOMFORT NOTED. NO S/S OF PAIN NOTED. ON TELE SR HR 72. IV SITE INTACT AND PATENT TKO NS, NO S/S OF INFILTRATION NOTED. GTF INFUSING WELL, NO RESIDUAL NOTED. KEPT HER DRY AND CLEAN. REPOSITION HER Q2H. ALL NEEDS ATTENDED. SIDE RAILS UP X 3 AND CALL LIGHT WITHIN REACH AM SHIFT ENDORSED TO GIVE VANCO IV, PT S/P HD TROUGH 17.
[2017-02-02] MEDS ORDERED: RENAL NOVASOURCE 1,000 ML BOTTLE GT PRN (20:00)
[2017-02-03] VITALS: BP 148/91
[2017-02-03 00:37] VITALS: BP 148/91
[2017-02-03] MEDS: IPRATROPIUM NEB FS 0.5 MG/2.5 ML AMPUL.NEB NEB SCH ×3 (01:16→14:01)
[2017-02-03] MEDS: ALBUTEROL FS 2.5 MG/0.5 ML VIAL.NEB NEB SCH ×3 (01:17→14:01)
[2017-02-03 04:00] VITALS: BP 148/91
--- NOTE | 2017-02-03 06:31 | NUR ---
RN CLOSING NOTES PT IN BED WITH EYES CLOSED OBTUNDED., NO DISTRESS OR DISCOMFORT NOTED. NO S/S OF PAIN NOTED. ON TELE SR HR 82. IV SITE INTACT AND PATENT TKO NS, NO S/S OF INFILTRATION NOTED. GTF INFUSING WELL, NO RESIDUAL NOTED. KEPT HER DRY AND CLEAN. REPOSITION HER Q2H. ALL NEEDS ATTENDED. SIDE RAILS UP X 3 AND CALL LIGHT WITHIN REACH .
--- NOTE | 2017-02-03 07:41 | NUR ---
RT PATIENT REC'D TRACHED ON [facility] WITH SETTINGS SET BY MD LATS RODRIGUEZ. VENT ALARMS CHECKED + AUDIBLE. 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 SX'D WITH SMALL AMT PALE SEMI-THICK SECRETIONS. COARSE B/S. PATIENT APPEARS COMFORTABLE AND IN NO DISTRESS AT THIS TIME. AMBU BAG AT HOB. CONT CURRENT PLAN OF CARE. Addendum: 02/03/17 at 1256 by SUE HERRERA RT Amended: Links added.
[2017-02-03 08:00] VITALS: BP 156/86
[2017-02-03] MEDS: MEROPENEM 500 MG in IV NS 0.9% 50 ML IV SCH (08:00)
[2017-02-03] MEDS: DOCUSATE SODIUM LIQ 100 MG/10 ML UDC GT SCH (08:01)
[2017-02-03] MEDS: LEVETIRACETAM SOL (5 ML) 100 MG/ML UDC GT SCH (08:02)
[2017-02-03] MEDS: HYDROCORTISONE 5 MG TABLET GT SCH (08:02)
[2017-02-03] MEDS: LEVOTHYROXINE SODIUM 100 MCG TABLET GT SCH (08:02)
[2017-02-03] MEDS: CHOLECALCIFEROL 1,000 UNIT TABLET (VIT D3) GT SCH (08:02)
[2017-02-03] MEDS: OLANZAPINE 5 MG TABLET GT SCH (08:03)
[2017-02-03] MEDS: PANTOPRAZOLE 40 MG/PACK PACK GT SCH (08:03)
[2017-02-03] MEDS: LACTOBACILLUS RHAMNOSUS GG 1 EACH CAP.SPRINK GT SCH (08:03)
[2017-02-03] MEDS: THIAMINE HCL 100 MG TABLET GT SCH (08:03)
[2017-02-03] MEDS: VIT B CMPLX 3/FA/VIT C/BIOTIN 1 TAB TABLET GT SCH (08:03)
[2017-02-03] MEDS: HEPARIN SODIUM, PORCINE 5000 UNITS/1 ML VIAL SQ SCH (08:04)
[2017-02-03] MEDS: Z GUARD REMEDY 2 OZ OINT TP SCH (08:20)
[2017-02-03] MEDS: PROSOURCE / PROSTAT (PYXIS) 30 ML UDC GT SCH (08:20)
[2017-02-03 08:57] LABS: CALCIUM, SERUM 8.3 mg/dL (8.5-10.1); CREATININE 6.7 mg/dL (0.6-1.3); POTASSIUM 4.3 mmol/L (3.5-5.1)
[2017-02-03] MEDS ORDERED: DOCU50LI GT (10:27)
[2017-02-03] MEDS ORDERED: LORA0.5T GT (10:27)
[2017-02-03] MEDS ORDERED: IPRA0.2S9 NEB (10:27)
[2017-02-03] MEDS ORDERED: [UNRECOGNIZED DRUG - CODE] GT (10:27)
[2017-02-03] MEDS ORDERED: PANT40SU2 GT (10:27)
[2017-02-03] MEDS ORDERED: LEVE100S GT (10:27)
[2017-02-03] MEDS ORDERED: ALLA266C2 TP (10:27)
[2017-02-03] MEDS ORDERED: Prosource GT (10:27)
[2017-02-03] MEDS ORDERED: ALBU2.5V13 NEB (10:27)
[2017-02-03] MEDS ORDERED: VIT1TABL44 GT (10:27)
[2017-02-03] MEDS ORDERED: HYDR-3326 GT (10:27)
[2017-02-03] MEDS ORDERED: HYDR5TAB GT ×2 (10:27)
[2017-02-03] MEDS ORDERED: Renal Novasource GT (10:27)
[2017-02-03] MEDS ORDERED: OLAN5TAB3 GT (10:27)
[2017-02-03] MEDS ORDERED: LEVO100T GT (10:27)
--- NOTE | 2017-02-03 10:48 | NUR ---
son MC PAZ REFUSED DISCHARGE WANTED TO TALK TO MD REGARDING PT. MENTATION,RELAYED WITH DR. MAGALLANES ORDERED HEAD CT WITHOUT CONTRAST AND PER ELPIDIO HE WILL LET ALEJANDRINA RIVERS TALK TO SON,MARIO CORA NOTIFIED.
[2017-02-03 12:00] VITALS: BP 168/91
== END 2017-02-03 16:15 | DRG 4 ==
LOC: ER 12:46 → TELE1 14:54 → TELE-TD 16:03 → TELE1 01-25 10:25 → MEDSG1 01-25 11:04 → TELE1 01-26 14:09 → ICU 01-26 22:24 → TELE-TD 01-29 15:55 → TELE1 01-31 12:28 → UNDODISIN 02-03 14:29
PROVIDERS: ADMIT Internal Medicine Nephrology; ATTEND Internal Medicine Nephrology
PROC: 5A1D60Z (ICD-10-PCS; 2017-01-24)
PROC: 5A1955Z Respiratory Ventilation, Greater than 96 Consecutive Hours (ICD-10-PCS; principal; 2017-01-26)
PROC: 0BH17EZ Insertion of Endotracheal Airway into Trachea, Via Natural or Artificial Opening (ICD-10-PCS; 2017-01-26)
PROC: 5A12012 Performance of Cardiac Output, Single, Manual (ICD-10-PCS; 2017-01-26)
PROC: 0B113F4 Bypass Trachea to Cutaneous with Tracheostomy Device, Percutaneous Approach (ICD-10-PCS; 2017-01-27)
PROC: 0B21XFZ Change Tracheostomy Device in Trachea, External Approach (ICD-10-PCS; 2017-01-27)
PROC: 05H533Z Insertion of Infusion Device into Right Subclavian Vein, Percutaneous Approach (ICD-10-PCS; 2017-01-27)
DX: A41.9 Sepsis, unspecified organism (principal); J96.00 Acute respiratory failure, unspecified whether with hypoxia or hypercapnia; J18.9 Pneumonia, unspecified organism; G93.40 Encephalopathy, unspecified; N18.6 End stage renal disease; I46.9 Cardiac arrest, cause unspecified; J44.0 Chronic obstructive pulmonary disease with (acute) lower respiratory infection; N39.0 Urinary tract infection, site not specified; E87.2 Acidosis; R04.2 Hemoptysis; I13.2 Hypertensive heart and chronic kidney disease with heart failure and with stage 5 chronic kidney disease, or end stage renal disease; J98.11 Atelectasis; T82.41XA Breakdown (mechanical) of vascular dialysis catheter, initial encounter; E11.22 Type 2 diabetes mellitus with diabetic chronic kidney disease; Z99.2 Dependence on renal dialysis; E03.9 Hypothyroidism, unspecified; Z87.891 Personal history of nicotine dependence; R13.10 Dysphagia, unspecified; Z93.1 Gastrostomy status; D53.9 Nutritional anemia, unspecified; D63.8 Anemia in other chronic diseases classified elsewhere; I50.9 Heart failure, unspecified; Y84.9 Medical procedure, unspecified as the cause of abnormal reaction of the patient, or of later complication, without mention of misadventure at the time of the procedure; Y92.129 Unspecified place in nursing home as the place of occurrence of the external cause; R65.20 Severe sepsis without septic shock
CPT/HCPCS: 31720; 36415; 36569; 36600; 70450-TC; 71010-TC; 80048-TC; 80053-TC; 80076-TC; 80202-TC; 81000-TC; 82272-TC; 82306; 82533; 82728-TC; 82746; 82803-TC; 82962-TC; 83540-TC; 83605-TC; 83615-TC; 83735-TC; 84100-TC; 84439-TC; 84443-TC; 84484-TC; 84550-TC; 85025-TC; 85045-TC; 85730-TC; 87040-TC; 87081-TC; 87086-TC; 87186-TC; 90935-TC; 92950-TC; 93307-TC; 94002-TC; 94003-TC; 94760-TC; 94762-TC; 94799-TC; 99082-TC; A4216; A4606; A6402; A6403; A7526; J0171; J1644; J1953; J2185; J2543; J2997; J3010; J3370; J3490; J7050; J7060; P9047; Z7610

== ENCOUNTER 2017-03-01 18:58 | Inpatient (IN) | payer MEDICAID, MEDICARE ==
[~2017-03-01] VITALS: Ht 167.6 cm; Wt 76.2 kg
[~2017-03-01 18:58] MED LIST: ACET-868 GT; ALBU2.5V13 NEB; ALLA266C2 TP; AMLO10TA2 GT; BISA10SU8 RC; DOCU50LI GT; HYDR-3326 GT; HYDR5TAB GT; INSU100I14 SQ; IPRA0.2S9 NEB; LEVE100S GT; LEVO100T GT; LORA0.5T GT; NUT.237L67 GT; OLAN5TAB3 GT; PANT40SU2 GT; Prosource GT; Renal Novasource GT; THIA100T13 GT; VIT1TABL44 GT; [UNRECOGNIZED DRUG - CODE] GT
[2017-03-01] MEDS ORDERED: LORAZEPAM INJ 2 MG/ML VIAL ONE (19:18)
--- NOTE | 2017-03-01 19:18 | NUR ---
RECEIVED REPORT FROM OMAR JOHN. PT NONVERBAL, NOTED RESTLESS. PT CONNECTED TO VENT WITH PRESCRIBED SETTINGS: AC 12 VT 500 FI02 50% PEEP 5. DCT 6 TRACH. NO SOB NOTED. NAD NOTED. NO NVD AT THIS TIME. PT GOWNED AND PLACED ON MONTIOR. PT NOTED WITH GTUBE INTACT AND PATENT. NO S/S INFECTION. NO RESIDUALS NOTED. PT NOTED WITH AV SHUNT ON LEFT UPPER ARM BRUIT AND THRILL NOTED.
--- NOTE | 2017-03-01 19:19 | NUR ---
PT HAS LEFT CW HD SITE.
[2017-03-01 19:21] VITALS: BP 212/136
--- NOTE | 2017-03-01 19:24 | NUR ---
PT REC'D TRACHED TITA 6 ON NOTED [facility] VENT SETTINGS GIVEN FROM TRANSPORT RT. NO RESP DISTRESS NOTED AT THIS TIME. WAREHOUSE RECORD CLERK CUFF PRESSURE NOTED. SX'D MOD AMT OF THICK YELLOW SECRETIONS. VENT IS PLUGED INTO RED OUTLET. ALARMS ARE SET AND AUDIBLE PER POLICY. AMBU BAG BEDSIDE. WILL CONTINUE TO MONITOR. Addendum: 03/01/17 at 1927 by BEVERLY DOMINIQUE RT Amended: Links added.
--- NOTE | 2017-03-01 19:28 | NUR ---
IV STARTED ON RIGHT WRIST 20G INTACT AND PATENT. FLUSHING WELL. BLOOD DRAWN SENT TO LAB.
--- NOTE | 2017-03-01 19:28 | NUR ---
Marlene corado in ED - 03/01/17 at 1946 by PAO IV STARTED ON LEFT WRIST 20G INTACT AND PATENT. FLUSHING WELL. BLOOD DRAWN SENT TO LAB.
[2017-03-01 19:29] LABS: BASOPHILS # (AUTO) 0.4 /CMM (0.0-0.2); BASOPHILS % (AUTO) 1.6 % (0.0-2.0); EOSINOPHILS # (AUTO) 0.2 /CMM (0.0-0.7); EOSINOPHILS % (AUTO) 0.8 % (0.0-6.0); HEMATOCRIT 37 % (33-45); HEMOGLOBIN 11.6 g/dL (11.5-14.8); LYMPHOCYTES # (AUTO) 0.6 /CMM (0.8-4.8); LYMPHOCYTES % (AUTO) 2.7 % (20.0-44.0); MEAN CORPUSCULAR HEMOGLOBIN 31 PG (26.0-33.0); MEAN CORPUSCULAR HGB CONC 31 g/dl (31.0-36.0); MEAN CORPUSCULAR VOLUME 99 fL (82-100); MONOCYTES % (AUTO) 4.2 % (2.0-12.0); NEUTROPHILS % (AUTO) 90.7 % (43.0-81.0); PLATELET COUNT (AUTO) 303 /CMM (150-450); RDW COEFFICIENT OF VARIATION 18.1 (11.5-15.0); RED BLOOD CELL COUNT(AUTO) 3.73 MIL/uL (4.0-5.2); WHITE BLOOD COUNT (AUTO) 23.2 K/uL (4.3-11.0)
[2017-03-01] MEDS ORDERED: LORAZEPAM INJ 2 MG/ML VIAL IV ONE (19:30)
--- NOTE | 2017-03-01 19:30 | NUR ---
RADIOLOGY AT BEDSIDE FOR CXR
--- NOTE | 2017-03-01 19:43 | NUR ---
DR. LINARES AT BEDSIDE FOR REEVAL.
[2017-03-01 19:48] LABS: ALBUMIN 4.3 g/dL (3.4-5.0); BILIRUBIN,DIRECT 0.2 mg/dL (0.0-0.2); BILIRUBIN,TOTAL 0.7 mg/dL (0.2-1.0); CALCIUM, SERUM 7.9 mg/dL (8.5-10.1); CREATININE 4.3 mg/dL (0.6-1.3); POTASSIUM 3.7 mmol/L (3.5-5.1); TOTAL PROTEIN, SERUM 9.5 g/dL (6.4-8.2)
--- NOTE | 2017-03-01 19:59 | NUR ---
DR. LINARES AWARE PT BP 149/91 HR 81 RESTING COMFORTABLE
[2017-03-01 20:17] LABS: ABG BASE EXCESS -6.5 mmol/L; ABG OXYGEN SATURATION 97.4 % (92.0-98.5); ABG PCO2 32.5 mmHg (35.0-45.0); ABG PH 7.361 (7.350-7.450); ABG PO2 97.6 mmHg (75.0-100.0); AaDO2 222.3 mmHg; MetHb 0.4 % (0.0-1.5); SITE, ABG Right Radial; VENT MODE, BG AC 12 500 50% +5
--- NOTE | 2017-03-01 20:17 | NUR ---
PT ASSIGNED TO [facility] 320-2
--- NOTE | 2017-03-01 20:25 | NUR ---
REPORT GIVEN TO OMAR TELLES FOR TELE BED 320-2
[2017-03-01] MEDS ORDERED: MEROPENEM 500 MG in IV NS 0.9% 50 ML IV ONE (20:30)
[2017-03-01] MEDS ORDERED: VANCOMYCIN 1 GM in IV D5W 250 ML IV ONE (20:30)
[2017-03-01] MEDS ORDERED: MEROPENEM 500 MG VIAL IV ONE (20:34)
[2017-03-01 20:52] VITALS: BP 160/103
--- NOTE | 2017-03-01 21:00 | NUR ---
PER RT PT PLACED ON FI02 40%
--- NOTE | 2017-03-01 21:08 | NUR ---
URINE COLLECTED VIA F/C. CALLED LAB FOR AEROSPACE MECHANIC.
[2017-03-01 21:18] LABS: APPEARANCE,URINE Clear (CLEAR); BILIRUBIN,URINE Negative (NEGATIVE); BLOOD, URINE Moderate Ery/uL (NEGATIVE); COLOR,URINE Yellow (YELLOW); KETONES,URINE Negative (NEGATIVE); LEUKOCYTE ESTERASE ,URINE Large (NEGATIVE); NITRITE, URINE Negative (NEGATIVE); PH,URINE 8.5 (5.0-8.0); PROTEIN,URINE 100 mg/dl (NEGATIVE); UGLUCOSE Negative (NEGATIVE); UROBILINOGEN,URINE 0.2 EU/dL (0.2)
[2017-03-01 21:36] LABS: BACTERIA,URINE Many /HPF (None Seen); RBC,URINE 21-50 /HPF (0-2); SQUAMOUS EPITHELIAL CELL,UR Rare /HPF (None Seen); URINE AMORPHOUS URATE Moderate /HPF (None Seen); WBC,URINE TOO NUMEROUS TO COUN /HPF (0-3)
[2017-03-01] MEDS ORDERED: VANCOMYCIN 1 GM VIAL ONE (21:38)
--- NOTE | 2017-03-01 21:44 | NUR ---
UPDATED REPORT GIVEN TO OMAR TELLES. RN AWARE IV ATB TRANSFUSING ON ADMISSION
[2017-03-01 22:00] VITALS: BP 170/113
--- NOTE | 2017-03-01 22:04 | NUR ---
PT TRASNFERED PER ACLS PROTOCOL TO BED 319
[2017-03-01 22:25] VITALS: BP 170/113
[2017-03-01] MEDS ORDERED: MISCELLANEOUS MED 1 EA EA XX ONE (23:00)
[2017-03-02] VITALS (7 sets, daily range): BP systolic 137–164; BP diastolic 78–105
[2017-03-02] MEDS ORDERED: LORAZEPAM INJ 2 MG/ML VIAL ONE (03:12)
[2017-03-02] MEDS: LORAZEPAM INJ 2 MG/ML VIAL IV PRN ×5 (03:18→23:48)
[2017-03-02] MEDS ORDERED: hydrALAZINE HCL 25 MG TABLET PO PRN (03:30)
[2017-03-02] MEDS ORDERED: RENAL NOVASOURCE 1,000 ML BOTTLE GT PRN ×2 (06:00→08:19)
[2017-03-02 06:24] LABS: EOSINOPHILS % (AUTO) 0.1 % (0.0-6.0); HEMATOCRIT 32 % (33-45); HEMOGLOBIN 10.2 g/dL (11.5-14.8); LYMPHOCYTES # (AUTO) 0.4 /CMM (0.8-4.8); LYMPHOCYTES % (AUTO) 1.7 % (20.0-44.0); MEAN CORPUSCULAR HEMOGLOBIN 32 PG (26.0-33.0); MEAN CORPUSCULAR HGB CONC 32 g/dl (31.0-36.0); MEAN CORPUSCULAR VOLUME 99 fL (82-100); MONOCYTES # (AUTO) 1.7 /CMM (0.1-1.30); MONOCYTES % (AUTO) 7.2 % (2.0-12.0); NEUTROPHILS # (AUTO) 21.5 /CMM (1.8-8.9); PLATELET COUNT (AUTO) 244 /CMM (150-450); RDW COEFFICIENT OF VARIATION 18.8 (11.5-15.0); RED BLOOD CELL COUNT(AUTO) 3.21 MIL/uL (4.0-5.2); WHITE BLOOD COUNT (AUTO) 23.7 K/uL (4.3-11.0)
--- NOTE | 2017-03-02 06:26 | NUR ---
BASE WAD OPERATOR ADJUSTER NOTES PT AWAKE & NON VERBAL. ON TRACH-VENT WITH VENT SETTINGS AT AC 12, TV 500, FIO2 40%, PEEP 5. NOT IN ANY DISTRESS. NO SOB NOTED. NO S/SX OF ANY PAIN OR DISCOMFORT AT THIS TIME. ON TELE SR @ 77 WITH IV-HL PATENT & INTACT. KEPT ON NPO WITH GTF INFUSING WELL. AM CARE DONE. MONITORED ACCORDINGLY. CALL LIGHT WITHIN REACH. BED IN LOWEST POSITION. SR UP X 3 WITH BED ALARM ON FOR SAFETY. WILL ENDORSE TO NEXT SHIFT.
[2017-03-02 06:42] LABS: CALCIUM, SERUM 7.4 mg/dL (8.5-10.1); CREATININE 5.3 mg/dL (0.6-1.3); MAGNESIUM 2.4 mg/dL (1.8-2.4); PHOSPHORUS 3.3 mg/dL (2.5-4.9); POTASSIUM 3.8 mmol/L (3.5-5.1)
--- NOTE | 2017-03-02 07:21 | NUR ---
marine engineering consultant Initial Notes: Received patient resting in bed, on vent. Alert oriented x1. Non-labored breathing noted. No signs of distress. Patient arousable to pain. IV patent and intact. Bed alarm on. Bed at lowest position. Will continue to monitor. Addendum: 03/02/17 at 0804 by SIL BRAN RN Olivier HR 84 sinus rhythm
[2017-03-02] MEDS ORDERED: FEE PK DOSING 1 MIN EA MC ONE (08:47)
[2017-03-02 08:49] LABS: BAND % (MANUAL) 3 % (0.0-5.0); LYMPHOCYTES % (MANUAL) 2 % (16-48); MONOCYTES % (MANUAL) 5 % (0-11.0); NEUTROPHILS % (MANUAL) 90 (42-76)
[2017-03-02] MEDS ORDERED: ALBU2.5V38 IH (15:53)
[2017-03-02] MEDS ORDERED: DOCU50LI GT (15:53)
[2017-03-02] MEDS ORDERED: LEVE100S GT (15:53)
[2017-03-02] MEDS ORDERED: HYDR-552 GT (15:53)
[2017-03-02] MEDS ORDERED: IPRA0.2S9 IH (15:53)
[2017-03-02] MEDS ORDERED: NUT.237L67 GT (15:53)
[2017-03-02] MEDS ORDERED: LORA0.5T GT (15:53)
[2017-03-02] MEDS ORDERED: THIA100T13 GT (15:53)
[2017-03-02] MEDS ORDERED: LEVO200T8 GT (15:53)
[2017-03-02] MEDS ORDERED: [UNRECOGNIZED DRUG - CODE] GT (15:53)
[2017-03-02] MEDS ORDERED: HYDR20TA3 GT (15:53)
[2017-03-02] MEDS ORDERED: OLAN5TAB3 GT (15:53)
[2017-03-02] MEDS ORDERED: HYDR10TA14 GT (15:53)
[2017-03-02] MEDS ORDERED: ALTEPLASE CATHFLO 2 MG/VIAL XX ONE (16:30)
--- NOTE | 2017-03-02 17:24 | NUR ---
telemarketer notes [employer]ma SCHOOL OCCUPATIONAL THERAPIST regarding procalcitonin result and made aware per Alma patient is on Vancomycin IV ATB. Will continue to monitor accordingly.
[2017-03-02] MEDS: VANCOMYCIN 500 MG in IV D5W 100 ML IV PRN (18:52)
--- NOTE | 2017-03-02 19:27 | NUR ---
rn review closing notes All needs provided, attended, and anticipated. Kept patient clean and comfortable in bed, call light with in patient reach, endorsed to next shift RN to continue care.
--- NOTE | 2017-03-02 20:00 | NUR ---
TELE/RN RECEIVE PATIENT APPEAR SLEEPING, COMFORTABLE, NO SIGNS OF DISTRESS NOTED, MECH VENT WORKING WELL, HOB ELEVATED, GT FEEDING INFUSING, WILL MONITOR.
[2017-03-02] MEDS: MEROPENEM 500 MG in IV NS 0.9% 50 ML IV SCH (22:14)
[2017-03-02] MEDS: HEPARIN SODIUM, PORCINE 5000 UNITS/1 ML VIAL SQ SCH (22:15)
--- NOTE | 2017-03-02 23:52 | NUR ---
TELE/RN PATIENT VERY RESTLESS AND AGITATED, ATIVAN 1 MG IVP WAS GIVEN ORDERED. WILL MONITOR.
[2017-03-03] VITALS (8 sets, daily range): BP systolic 95–153; BP diastolic 57–96
--- NOTE | 2017-03-03 01:44 | NUR ---
TELE/RN BLADDER SCAN WAS DONE ORDERED. NO URINE IN THE BLADDER NOTED.
--- NOTE | 2017-03-03 03:25 | NUR ---
TELE/RN PATIENT IS SLEEPING AT THIS TIME, AROUSAB;E, NO SIGNS OF DISTRESS NOTE. WILL CONTINUE TO MONITOR.
[2017-03-03] MEDS: RENAL NOVASOURCE 1,000 ML BOTTLE GT PRN (06:12)
--- NOTE | 2017-03-03 06:30 | NUR ---
TELE/RN APPEAR SLEEPING, APPEAR COMFORTABLE, NO DISTRESS NOTED, HOB ELEVATED, ALL NEEDS ATTENDED AT THIS TIME. WILL CONTINUE TO MONITOR.
[2017-03-03 07:06] LABS: BASOPHILS % (AUTO) 0.1 % (0.0-2.0); EOSINOPHILS # (AUTO) 0.2 /CMM (0.0-0.7); EOSINOPHILS % (AUTO) 0.9 % (0.0-6.0); HEMATOCRIT 37 % (33-45); HEMOGLOBIN 11.8 g/dL (11.5-14.8); LYMPHOCYTES # (AUTO) 0.7 /CMM (0.8-4.8); LYMPHOCYTES % (AUTO) 3.7 % (20.0-44.0); MEAN CORPUSCULAR HEMOGLOBIN 32 PG (26.0-33.0); MEAN CORPUSCULAR HGB CONC 32 g/dl (31.0-36.0); MEAN CORPUSCULAR VOLUME 99 fL (82-100); MONOCYTES % (AUTO) 5.1 % (2.0-12.0); NEUTROPHILS # (AUTO) 18.3 /CMM (1.8-8.9); NEUTROPHILS % (AUTO) 90.2 % (43.0-81.0); PLATELET COUNT (AUTO) 233 /CMM (150-450); RDW COEFFICIENT OF VARIATION 18.7 (11.5-15.0); WHITE BLOOD COUNT (AUTO) 20.3 K/uL (4.3-11.0)
[2017-03-03 07:25] LABS: CALCIUM, SERUM 8.4 mg/dL (8.5-10.1); CREATININE 5.6 mg/dL (0.6-1.3); POTASSIUM 3.5 mmol/L (3.5-5.1)
[2017-03-03 07:32] LABS: BAND % (MANUAL) 5 % (0.0-5.0); EOSINOPHILS % (MANUAL) 2 % (0-4); LYMPHOCYTES % (MANUAL) 2 % (16-48); MONOCYTES % (MANUAL) 6 % (0-11.0); NEUTROPHILS % (MANUAL) 85 (42-76)
--- NOTE | 2017-03-03 07:59 | NUR ---
RN NOTES RECEIVED PT. PT IS STABLE AND SLEEPING IN BED. PT IS VENT DEPENDENT, VENT SETTINGS IN PLACE. PT IS ON A TELE MONITOR SHOWING SR AT 81 BPM. IV ACCESS LOCATED ON RIGHT HAND [address] G[address] MEASURES IN PL[address]. CALL LIGHT WITHIN REACH. WILL CONTINUE TO MONITOR.
[2017-03-03] MEDS: HEPARIN SODIUM, PORCINE 5000 UNITS/1 ML VIAL SQ SCH ×2 (08:39→20:18)
[2017-03-03] MEDS ORDERED: LORAZEPAM 0.5 MG TABLET GT PRN (09:30)
[2017-03-03] MEDS ORDERED: RENAL NOVASOURCE 1,000 ML BOTTLE GT PRN (10:00)
[2017-03-03] MEDS: OLANZAPINE 5 MG TABLET GT SCH (16:56)
[2017-03-03] MEDS: LEVETIRACETAM SOL (5 ML) 100 MG/ML UDC GT SCH (16:56)
[2017-03-03] MEDS: LACTOBACILLUS RHAMNOSUS GG 1 EACH CAP.SPRINK GT SCH (16:56)
[2017-03-03] MEDS: LORAZEPAM INJ 2 MG/ML VIAL IV PRN ×2 (18:19→23:14)
--- NOTE | 2017-03-03 18:44 | NUR ---
RN CLOSING NOTES PT IS STABLE IN BED. NO S/S OF SOB, DISTRESS OR PAIN. BLADDER SCAN AT 1300 AND 1900 REVEALED NO URINE RETAINED IN BLADDER. IV ACCESS IN RIGHT HAND 20 G, KVO. ALL PATIENT NEEDS ANTICIPATED AND MET. SAFETY MEASURES IN PLACE. WILL ENDORSE TO LEGAL ADMINISTRATIVE ASSISTANT FOR ALMA ROSA.
--- NOTE | 2017-03-03 19:30 | NUR ---
rn initial notes: received report from horacio rn, pt in bed, open eyes non verbal vent trache pt with the ff setting ac 12 peep 5 fio2 40% tv 500, ambu bag at bed side, clinical alarms checked and audible, suction set up secured. no facial grimace noted, pt received with bilateral soft wrist restraint in placed, radial pulses intact and palpable, with good capillary refill noted, pt able to move hands and fingers, no s/s/ of impediment in circulation noted. pt has gtube in placed currently receiving novasource at 45ml/hr, also has rigth hand iv access patent and flushing well, infusing with ns at tko. no s/s of redness infiltration noted. pt on sinus rhythm hr 66, pt s/p hd on 03/02/17 with 2l output. ble offloaded, safety precautions for fall initiated call light in reach, will continue to monitor.
--- NOTE | 2017-03-03 19:33 | NUR ---
[facility] WITH NOTED SETTINGS. VENT ALARM WORKING AND AUDIBLE, VENT PLUGGED INTO RED OUTLET. TRACH SECURE IN AND IN PROPER POSITION, CUFF CHECKED RESIDENTIAL PROPERTY TAX APPRAISER. SXN SMALL AMOUNT OF WHITE THICK SECRETIONS. BILATERAL BS NOTED. NO RESPIRATORY DISTRESS NOTED AT THIS TIME. AMBU BAG AT [facility], WILL CONTINUE TO MONITOR.
--- NOTE | 2017-03-03 19:44 | NUR ---
rn notes: per quality control engineering technician david, pt has junctional then converted to sinus rhythm , hr always on 60's, will check pt's vital sign and will continue monitoring the pt
[2017-03-03] MEDS: MEROPENEM 500 MG in IV NS 0.9% 50 ML IV SCH (20:17)
--- NOTE | 2017-03-03 20:33 | NUR ---
bladder scan: performed bladder scan at this time, reveal 186ml on LLQ area, and 0 ml on right upper right lower and left upper quadrant of the bladder, pt has diaper, per report from day rn they did straight cath at 1800 and obtained 50ml of urine, no abdominal distention noted, abdomen and bladder area soft to touch will continue to monitor for any urinary retention.
[2017-03-03] MEDS: HYDROCORTISONE 5 MG TABLET GT SCH (21:57)
--- NOTE | 2017-03-03 21:57 | NUR ---
GTUBE PATENCY CHECK: CHECKED GTUBE FOR PATENCY AND RESIDUAL , ABDOMEN SOFT TO TOUCH AND ACTIVE BOWEL SOUND HEARD UPON AUSCULTATION, NO RESIDUAL OBTAINED UPON CHECKING, DUE MEDS GIVEN AT THIS TIME
--- NOTE | 2017-03-03 22:03 | NUR ---
RN NOTES: RATE OF GTUBE FEEDING NOVASOURCE RENAL WAS INCREASED FROM 45 TO 65ML/HR ORDERED, NO RESIDUAL OBTAINED, PT TOLERATED FEEDING WELL, WILL CONTINUE TO MONITOR
--- NOTE | 2017-03-03 22:30 | NUR ---
UO: PT'S DIAPER WAS CHANGED, DIAPER IS WET, WITNESSED BY TAMARA KHAN, BLADDER SCAN PERFORMED AND SHOWS 100ML. NO ABDOMINAL DISTENTION NOTED, WILL CONTINUE MONITORING PT
--- NOTE | 2017-03-03 23:15 | NUR ---
PRN ATIVAN: PT VERY RESTLESS AND MANAGE TO PUT HER BOTH LEGS OUT OF THE BED, ALTHOUGH WITH RESTRAINT, PRN ATIVAN 1MG IVP ADMINISTERED TO THE PT AT THIS TIME, WILL CONTINUE TO MONITOR AND REASSESS
[2017-03-04] VITALS (7 sets, daily range): BP systolic 98–146; BP diastolic 57–88
--- NOTE | 2017-03-04 00:39 | NUR ---
rn notes: pt on sinus rhythm hr 72, pt sleeping right now, calm
--- NOTE | 2017-03-04 03:50 | NUR ---
RN NOTES: RELAYED TO MD REGARDING PT'S NO UO FOR 6HRS, ALTHOUGH PT ON HD, ORDER IS TO CHECK UO Q6HRS AND MONITOR FOR ANY URINARY RETENTION, BLADDER SCAN SHOWS 100-200ML OF URINE, PER MD OKAY TO DO STRAIGHT CATH.
--- NOTE | 2017-03-04 04:00 | NUR ---
RN NOTES: BLADDER SCAN PERFORMED AND OBTAINED 100ML, PT DIDNT VOID FROM 2300 UP TO NOW, STRAIGHT CATH PERFORMED AND OBTAINED 30ML OF URINE, NO ABDOMINAL DISTENTION NOTED, NUBIA CARE PROVIDED BEFORE AND AFTER THE PROCEDURE, ALSO ASSISTED NATIONAL PARK TOUR GUIDE IN PROVIDING BED BATH FOR THE PT, ORAL CARE PROVIDED TOO
[2017-03-04 06:25] LABS: BASOPHILS % (AUTO) 0.1 % (0.0-2.0); EOSINOPHILS # (AUTO) 0.2 /CMM (0.0-0.7); EOSINOPHILS % (AUTO) 1.7 % (0.0-6.0); HEMATOCRIT 34 % (33-45); HEMOGLOBIN 11.1 g/dL (11.5-14.8); LYMPHOCYTES # (AUTO) 0.6 /CMM (0.8-4.8); MEAN CORPUSCULAR HEMOGLOBIN 32 PG (26.0-33.0); MEAN CORPUSCULAR HGB CONC 33 g/dl (31.0-36.0); MEAN CORPUSCULAR VOLUME 99 fL (82-100); MONOCYTES % (AUTO) 7.3 % (2.0-12.0); NEUTROPHILS # (AUTO) 12.2 /CMM (1.8-8.9); NEUTROPHILS % (AUTO) 86.9 % (43.0-81.0); PLATELET COUNT (AUTO) 239 /CMM (150-450); RDW COEFFICIENT OF VARIATION 18.6 (11.5-15.0); RED BLOOD CELL COUNT(AUTO) 3.49 MIL/uL (4.0-5.2)
[2017-03-04 06:41] LABS: CALCIUM, SERUM 8.3 mg/dL (8.5-10.1); CREATININE 7.2 mg/dL (0.6-1.3); MAGNESIUM 2.5 mg/dL (1.8-2.4); PHOSPHORUS 2.9 mg/dL (2.5-4.9); POTASSIUM 3.4 mmol/L (3.5-5.1)
--- NOTE | 2017-03-04 07:07 | NUR ---
STEAM FINISHER CLOSING NOTES: PT IN BED, NO SOB NOTED, TOLERATED MECH VENT SETTING WELL, GTUBE FEEDING REMAINS INFUSING AT 65ML/HR, RIGHT HAND IV ACCESS REMAINS PATENT AND FLUSHING WELL, WITH ONGOING NS AT TKO. REMAINS SINUS RHYTHM HR 60. NO ABDOMINAL DISTENTION NOTED, LATEST BLADDER SCAN SHOWED 0ML OF URINE IN THE BLADDER. BILATERAL SOFT WRIST RESTRAINT REMAINS IN PLACED, NO S/S OF IMPEDIMENT IN CIRCULATION NOTED, WITH GOOD CAPILLARY REFILL NOTED, BOTH RADIAL PULSES PALPABLE AND PRESENT. VS REMAINS STABLE, NEEDS ATTENDED, SAFETY PRECAUTIONS FOR FALL REMAINS ENGAGED CALL LIGHT IN REACH WILL ENDORSE TO DAY RN FOR ALMA ROSA.
--- NOTE | 2017-03-04 07:30 | NUR ---
SOLICITOR PATENT AM NOTES: PT IN BED, OPENS EYES, NON VERBAL, WITH SHILEY 6, ON MECH VENT SATTING WELL, RESPIRATION EVEN AND UNLABORED, NO SIGNS OF ANY PAIN NOR FACIAL GRIMACING. TELEMETRY READS SR 62. LEFT CW HD CATH CDI DRESSING, LEFT HAND IV ACCESS G24 WITH NS AT KVO RATE. GTUBE FEEDING INFUSING AT 45ML/HR, O RESIDUAL. NO ABDOMINAL DISTENTION NOTED, BILATERAL SOFT WRIST RESTRAINT REMAINS IN PLACED, NO S/S OF IMPEDIMENT IN CIRCULATION NOTED, WITH GOOD CAPILLARY REFILL NOTED, BOTH RADIAL PULSES PALPABLE AND PRESENT. SAFETY PRECAUTIONS IN PLACE, SR UP X2, BED LOW LOCKED, CALL LIGHT IN REACH WILL CONTINUE TO MONITOR.
[2017-03-04] MEDS ORDERED: ALBUMIN 25% 25 GM in PREMIX 1 EA IV ONE (08:30)
[2017-03-04] MEDS: HYDROCORTISONE 20 MG TABLET GT SCH (08:54)
[2017-03-04] MEDS: OLANZAPINE 5 MG TABLET GT SCH ×2 (08:55→16:46)
[2017-03-04] MEDS: THIAMINE HCL 100 MG TABLET GT SCH (08:55)
[2017-03-04] MEDS: LEVETIRACETAM SOL (5 ML) 100 MG/ML UDC GT SCH ×2 (08:55→16:46)
[2017-03-04] MEDS: LACTOBACILLUS RHAMNOSUS GG 1 EACH CAP.SPRINK GT SCH ×2 (08:55→16:46)
[2017-03-04] MEDS: HEPARIN SODIUM, PORCINE 5000 UNITS/1 ML VIAL SQ SCH ×2 (08:57→21:28)
[2017-03-04] MEDS ORDERED: THIAMINE HCL 100 MG TABLET GT SCH (09:00)
[2017-03-04] MEDS: AMLODIPINE BESYLATE 10 MG TABLET GT SCH (09:00)
[2017-03-04] MEDS: LEVOTHYROXINE SODIUM 100 MCG TABLET GT SCH (09:03)
--- NOTE | 2017-03-04 09:30 | NUR ---
LIBRARY SERVICES COORDINATOR NOTES ADMINISTERED DUE MEDS.
--- NOTE | 2017-03-04 10:45 | NUR ---
COLDFUSION NOTES HD COMPLETED WITH 1 L OUTPUT. 25 % ALBUMIN GIVEN FOR LOW BP. G TUBE FEEDING NOVASOURCE REDUCED TO 45 ML/HR PER NIKOLAI GERENTOLOGICAL PHYSIOTHERAPIST [FOR DR. HUBER] AM CARE DONE. BLADDER SCAN DONE WITH 64 ML. AMY LU GERENTOLOGICAL PHYSIOTHERAPIST AWARE.
[2017-03-04] MEDS: VANCOMYCIN 500 MG in IV D5W 100 ML IV PRN (11:58)
--- NOTE | 2017-03-04 13:52 | NUR ---
BAND INSTRUMENT MAKER NOTES: - Patient was repositioned & restraints re-applied & applied , GT feedings infusing well, non-labored respirations , in semi-fowlers position.
--- NOTE | 2017-03-04 19:00 | NUR ---
TELE OPENING NOTES RECEIVED PT IN BED, OPENS EYES, NON VERBAL [facility] ORDERED, RESPIRATION EVEN AND UNLABORED, NO S/S OF DISTRESS. NO SIGNS OF ANY PAIN NOR FACIAL GRIMACING. G TUBE FEEDING INFUSING AT 45ML/HR. SAFETY PRECAUTIONS IN PLACE, SR X 3 , BED LOW LOCKED, CALL LIGHT IN REACH WILL CONTINUE TO MONITOR.
--- NOTE | 2017-03-04 19:00 | NUR ---
LEAF BINNER NOTES; CLOSING NOTES: - Patient in bed, remained non-verbal with unlabored respirations, no signs of pain nor grimaced face, TELE reads SR , TRACH in connected to vent, GT in no residual connected to Novasource , no significant changesn noted. ,
[2017-03-04] MEDS: HYDROCORTISONE 5 MG TABLET GT SCH (21:26)
[2017-03-04] MEDS: MEROPENEM 500 MG in IV NS 0.9% 50 ML IV SCH (21:28)
[2017-03-04] MEDS: RENAL NOVASOURCE 1,000 ML BOTTLE GT PRN (21:45)
[2017-03-04] MEDS: LORAZEPAM INJ 2 MG/ML VIAL IV PRN (23:31)
[2017-03-05] VITALS: BP_SYST 150; BP_DIAS 80; BP_DIAS 88
[2017-03-05 04:00] VITALS: BP 138/90
--- NOTE | 2017-03-05 06:31 | NUR ---
FISH HATCHERY MANAGER CLOSING NOTES PATIENT COMFORTABLY ASLEEP AND EASILY AWAKEN, NON VERBAL, OPEN EYES, HEAD OF BED ELEVATED FOR BETTER LUNG EXPANSION MECHANICAL VENT ORDERED. 02 SAT AT 100% GT TUBE RUNNING NOVASOURCE AT 45 MLS/HR TOLERATED WELL. ON ATB WITH NO A/R NOTED. IV SITE NO S/S OF INFILTRATED, RESPIRATIONS EVEN AND UNLABORED. NO S/S OF ACUTE DISTRESS, NO SOB, SKIN WARM AND DRY TO TOUCH, AFEBRILE, ALL NURSING CARE NEEDS PROVIDED AND RENDERED, NEEDS ATTENDED AND ANTICIPATED, KEPT CLEAN AND DRY AND COMFORTABLE, BLADDER NOT DISTENDED, GOOD SKIN CARE PROVIDED. FREQUENT VISUAL CHECK DONE FOR SAFETY EVERY 2 HOURS. REPOSITIONED EVERY 2 HOURS FOR COMFORT AND SKIN MGT. SAFE HAZARD FREE ENVIRONMENT PROVIDED. CALL LIGHT WITHIN EASY TO REACH, ON LOW BED AT ALL TIMES TO ENSURE SAFETY, WILL ENDORSE TO THE NEXT SHIFT CONTINUE PLAN OF CARE. Addendum: 03/05/17 at 0635 by TRINI OROZCO RN PATIENT SOFT WRIST BILATERAL CHECK Q2H WITH GOOD CIRCULATION
[2017-03-05 06:46] LABS: CALCIUM, SERUM 8.4 mg/dL (8.5-10.1); CREATININE 6.4 mg/dL (0.6-1.3); POTASSIUM 3.9 mmol/L (3.5-5.1)
--- NOTE | 2017-03-05 07:25 | NUR ---
RN NOTES PT IS AWAKE IN BED RESTING. BILATERAL WRIST RESTRAINTS ARE ON. PT ON VENT, SO SOB OR SIGNS OF DISTRESS. IV ON L HAND INTACT AND PATENT. G-TUBE INTACT AND PATENT, WITH NOVASOURCE FEEDING RUNNING AT 45ML/HR. SAFETY MEASURES ARE IN PLACE. WILL CONTINUE TO MONITOR.
[2017-03-05 07:29] VITALS: BP 139/69
[2017-03-05 08:00] VITALS: BP 147/77
[2017-03-05] MEDS: LEVETIRACETAM SOL (5 ML) 100 MG/ML UDC GT SCH ×2 (08:37→16:05)
[2017-03-05] MEDS: LEVOTHYROXINE SODIUM 100 MCG TABLET GT SCH (08:37)
[2017-03-05] MEDS: LACTOBACILLUS RHAMNOSUS GG 1 EACH CAP.SPRINK GT SCH ×2 (08:38→16:05)
[2017-03-05] MEDS: OLANZAPINE 5 MG TABLET GT SCH ×2 (08:38→16:05)
[2017-03-05] MEDS: THIAMINE HCL 100 MG TABLET GT SCH (08:38)
[2017-03-05] MEDS: HYDROCORTISONE 20 MG TABLET GT SCH (08:38)
[2017-03-05] MEDS: AMLODIPINE BESYLATE 10 MG TABLET GT SCH (08:39)
[2017-03-05] MEDS: HEPARIN SODIUM, PORCINE 5000 UNITS/1 ML VIAL SQ SCH (08:40)
[2017-03-05 09:19] LABS: BASOPHILS % (AUTO) 0.3 % (0.0-2.0); EOSINOPHILS # (AUTO) 0.3 /CMM (0.0-0.7); EOSINOPHILS % (AUTO) 2.7 % (0.0-6.0); HEMATOCRIT 37 % (33-45); HEMOGLOBIN 11.8 g/dL (11.5-14.8); LYMPHOCYTES # (AUTO) 0.6 /CMM (0.8-4.8); LYMPHOCYTES % (AUTO) 5.2 % (20.0-44.0); MEAN CORPUSCULAR HEMOGLOBIN 31 PG (26.0-33.0); MEAN CORPUSCULAR HGB CONC 32 g/dl (31.0-36.0); MEAN CORPUSCULAR VOLUME 98 fL (82-100); MONOCYTES # (AUTO) 0.8 /CMM (0.1-1.30); MONOCYTES % (AUTO) 6.9 % (2.0-12.0); NEUTROPHILS # (AUTO) 9.8 /CMM (1.8-8.9); NEUTROPHILS % (AUTO) 84.9 % (43.0-81.0); PLATELET COUNT (AUTO) 289 /CMM (150-450); RDW COEFFICIENT OF VARIATION 18.6 (11.5-15.0); RED BLOOD CELL COUNT(AUTO) 3.79 MIL/uL (4.0-5.2); WHITE BLOOD COUNT (AUTO) 11.6 K/uL (4.3-11.0)
[2017-03-05] MEDS ORDERED: HEPA50008 SQ (09:59)
[2017-03-05] MEDS ORDERED: HYDR-4076 PO (09:59)
[2017-03-05] MEDS ORDERED: MERO500V IV (09:59)
[2017-03-05] MEDS ORDERED: RXVAN XX (09:59)
[2017-03-05] MEDS ORDERED: LACT1CAP72 GT (09:59)
--- NOTE | 2017-03-05 10:12 | NUR ---
PT HAD BLADDER SCAN DONE. VOLUME WAS 21 ML.
[2017-03-05 12:00] VITALS: BP 124/69
[2017-03-05 16:00] VITALS: BP_SYST 132; BP_DIAS 52; BP_DIAS 58
--- NOTE | 2017-03-05 16:12 | NUR ---
PT HAD BLADDER SCAN, SHOWED 33ML VOLUME.
--- NOTE | 2017-03-05 17:30 | NUR ---
PT WAS DISCHARGED TO [facility] IN STABLE CONDITION. NO SOB OR DISTRESS, CONNECTED TO VENT. IV ON R HAND INTACT AND PATENT, G-TUBE INTACT AND PATENT. ALL MEDS WERE GIVEN ORDERED. REPORT WAS GIVEN TO RODO NELSON AT [facility]. PT WAS TRANSPORTED BY AMBULANCE WITH SAFETY MEASURES IN PLACE.
== END 2017-03-05 17:25 | DRG 870 ==
LOC: ER 19:00 → TELE 21:16
PROVIDERS: ADMIT Nurse Practitioner Acute Care; ATTEND Internal Medicine
PROC: 5A1955Z Respiratory Ventilation, Greater than 96 Consecutive Hours (ICD-10-PCS; principal; 2017-03-01)
PROC: 5A1D60Z (ICD-10-PCS; 2017-03-02)
DX: A41.9 Sepsis, unspecified organism (principal); G93.40 Encephalopathy, unspecified; J18.9 Pneumonia, unspecified organism; N18.6 End stage renal disease; J96.11 Chronic respiratory failure with hypoxia; Z99.11 Dependence on respirator [ventilator] status; I12.0 Hypertensive chronic kidney disease with stage 5 chronic kidney disease or end stage renal disease; N39.0 Urinary tract infection, site not specified; E11.22 Type 2 diabetes mellitus with diabetic chronic kidney disease; R13.10 Dysphagia, unspecified; Z93.1 Gastrostomy status; E03.9 Hypothyroidism, unspecified; Z88.0 Allergy status to penicillin; D72.829 Elevated white blood cell count, unspecified; Z99.2 Dependence on renal dialysis; E87.70 Fluid overload, unspecified; Z93.0 Tracheostomy status; B96.4 Proteus (mirabilis) (morganii) as the cause of diseases classified elsewhere
CPT/HCPCS: 31720; 36415; 36600; 71010-TC; 80048-TC; 80076-TC; 80202-TC; 81000-TC; 82803-TC; 82962-TC; 83605-TC; 83735-TC; 84100-TC; 85025-TC; 87040-TC; 87081-TC; 87086-TC; 87186-TC; 90935-TC; 94002-TC; 94003-TC; 94760-TC; 94762-TC; 99082-TC; A4216; A4606; J1644; J1953; J2060; J2185; J2997; J3370; J7030; J7060; P9047; Z7610

== ENCOUNTER 2018-01-11 15:21 | Inpatient (IN) | payer MEDICARE, OTHER ==
[~2018-01-11] VITALS: Ht 167.6 cm; Wt 68.2 kg
--- NOTE | 2018-01-11 07:20 | NUR ---
RN TEL ADMITTING NOTE ADMITTED 68 YR OLD F REPORT GIVEN TO DESMOND, PT AWAKE NON VERBAL, ON VENT P#8,AC 14, TV 500, FIO2 40% P5 WELL LAST NO DISTRESS NOTES OR SIGN OF PAIN, ADMITTED FOR ANEMIA H&H 7L MD MADE AWARE .PT WITH LCW HD CATH AND R FOOT # 20 G PATENT WELL SECURED, NO SKIN ISSUES NOTED, BUT WITH HX OF PS SACRAL AND BILAT HEELS. WITH GTF PATENT NO RESIDUAL, WELL SECURED, PRODUCTIVE WITH YELLOW GREENISH SECRETIONS IN TRACH, SUCTION PROVIDED, DR FOLEY CALLED FOR ORDERS TO CONT ALL MEDS AND GTF, AND WILL COME TO SEE PT IN AM.
--- NOTE | 2018-01-11 15:20 | NUR ---
RECEIVED PT IN ER TRACHED W/ PORTEX #8 FROM SNF. PLACED ON MECHANICAL VENTILATOR AC-14, VT: 500, PEEP 5, 40%. AMBU BAG & BACK UP TRACH ARE AT BEDSIDE. SX MODERATED AMOUNT OF FRAZIER, GREEN THICK SECRETION. TRACH SECURED AND PATENT. ALARMS ON AND AUDIBLE. VENT PLUGGED INTO RED OUTLET. WILL CONTINUE TO MONITOR PT.
[~2018-01-11 15:21] MED LIST changes: -ALBU2.5V13 NEB; +ALBU2.5V38 IH; -AMLO10TA2 GT; +AMLO10TA6 GT; -DOCU50LI GT; +HEPA50008 SQ; -HYDR-3326 GT; +HYDR-4076 PO; +HYDR-552 GT; +HYDR10TA14 GT; +HYDR20TA3 GT; -HYDR5TAB GT; +IPRA0.2S9 IH; -IPRA0.2S9 NEB; +LACT1CAP72 GT; -LEVO100T GT; +LEVO200T8 GT; +MERO500V IV; +RXVAN XX; -Renal Novasource GT; -VIT1TABL44 GT
--- NOTE | 2018-01-11 15:34 | NUR ---
BBPA FROM [facility]: ABNORMAL LABS, Hgb=6.6; Hct=19.8. NEG ACUTE DISTRESS. POSITIVE VENT. WELL TOLERATED. PORTEX 8, AC 14, TV 500, PEEP 5, FIO2 40%. POSITIVE GTUBE INPLACE DIRECTOR OF EXHIBIT DEVELOPMENT. PLACED ON MONITOR. WILL CONTINUE TO MONITOR. SAFETY MEASURES IN PLACE. DR YOUNG AT BEDSIDE FOR EVAL.
[2018-01-11] MEDS ORDERED: ALBU2.5V38 IH (15:42)
[2018-01-11] MEDS ORDERED: AMIN30LI4 GT (15:42)
[2018-01-11] MEDS ORDERED: OMEP20TA5 GT (15:42)
[2018-01-11] MEDS ORDERED: HEPA50008 SQ (15:42)
[2018-01-11] MEDS ORDERED: FOLI0.8T23 GT (15:42)
[2018-01-11] MEDS ORDERED: DOCU50LI GT (15:42)
[2018-01-11] MEDS ORDERED: BLOO-668 IN (15:42)
[2018-01-11] MEDS ORDERED: LACT1CAP72 GT (15:42)
[2018-01-11] MEDS ORDERED: MIDO10TA GT (15:42)
[2018-01-11] MEDS ORDERED: CHOL100044 GT (15:42)
[2018-01-11] MEDS ORDERED: IPRA0.2S9 IH (15:42)
[2018-01-11] MEDS ORDERED: INSU100V11 SQ (15:42)
[2018-01-11 16:41] LABS: BASOPHILS # (AUTO) 0.1 /CMM (0.0-0.2); BASOPHILS % (AUTO) 0.8 % (0.0-2.0); HEMATOCRIT 23 % (33-45); LYMPHOCYTES % (AUTO) 6.4 % (20.0-44.0); MEAN CORPUSCULAR HGB CONC 31 g/dl (31.0-36.0); MEAN CORPUSCULAR VOLUME 95 fL (82-100); MONOCYTES % (AUTO) 6.7 % (2.0-12.0); NEUTROPHILS # (AUTO) 13.1 /CMM (1.8-8.9); NEUTROPHILS % (AUTO) 84.1 % (43.0-81.0); PLATELET COUNT (AUTO) 453 /CMM (150-450); RDW COEFFICIENT OF VARIATION 22.2 (11.5-15.0); RED BLOOD CELL COUNT(AUTO) 2.41 MIL/uL (4.0-5.2); WHITE BLOOD COUNT (AUTO) 15.6 K/uL (4.3-11.0)
[2018-01-11 16:43] LABS: POTASSIUM 4.3 mmol/L (3.5-5.1)
[2018-01-11 16:46] LABS: CALCIUM, SERUM 9.4 mg/dL (8.5-10.1); CREATININE 4.9 mg/dL (0.6-1.3)
[2018-01-11 16:47] LABS: INR 0.99 (0.85-1.15)
[2018-01-11 17:22] VITALS: BP 146/114
--- NOTE | 2018-01-11 17:27 | NUR ---
CALLED GROUP, PAYMENT POSTER, PAGED TO CALL
--- NOTE | 2018-01-11 18:05 | NUR ---
REPORT GIVEN TO STACY NELSON FOR ALMA ROSA. TELE 114-2
--- NOTE | 2018-01-11 18:15 | NUR ---
REPAGED FOR THE THIRD TIME
[2018-01-11 20:00] VITALS: BP 90/44
[2018-01-11] MEDS ORDERED: IPRATROPIUM NEB FS 0.5 MG/2.5 ML AMPUL.NEB NEB PRN (23:30)
[2018-01-11] MEDS ORDERED: INSULIN REGULAR, HUMAN 100 UNIT/ML 3 ML VIAL SQ PRN (23:30)
[2018-01-11] MEDS ORDERED: DEXTROSE 50%-WATER 50 ML DISP.SYRIN IV PRN (23:30)
[2018-01-12] VITALS (9 sets, daily range): BP systolic 73–127; BP diastolic 42–107
[2018-01-12] MEDS ORDERED: NEPRO 1,000 ML BOTTLE GT PRN ×3 (00:30→01:00)
[2018-01-12] MEDS: BLOOD SUGAR DIAGNOSTIC 1 EACH STRIP IN SCH ×5 (00:44→23:44)
[2018-01-12] MEDS: ALBUTEROL FS 2.5 MG/0.5 ML VIAL.NEB NEB SCH ×2 (01:08→07:19)
--- NOTE | 2018-01-12 06:58 | NUR ---
RN TEL CLOSING NOTE PT ENDORSED IN STABLE CONDITION VS STABLE, NO SIGN OF DISTRESS OR PAIN, KEPT CLEAN AND DRY, WELL REPOSITIONED NO SIGN OF BLEEDING NOTED, WILL ENDORSE TO AM SHIFT NURSE TO F/U WITH TX PLAN AND MED RECON.
--- NOTE | 2018-01-12 07:10 | NUR ---
E COMMERCE SOLUTION ARCHITECT NOTES RECEIVED PT IN BED, ASLEEP, NO C/O PAIN OF FACIAL GRIMACING NOTED, PT IS ON VENT, SATURATING WELL, WITH HEPLOCK ON RIGHT FOOT, INTACT AND PATENT. WITH BILATERAL SOFT WRIST RESTRAINT, PER PM NURSE REPORT PT ATTEMPT TO REMOVE IV LINES AND GTUBE. CIRCULATION CHECK DONE, WITH GOOD CIRCULATION, WITH ONGOING GTF NEPRO AT 50 ML/HR, TOLERATING WELL, NO RESIDUE NOTED, SAFETY MEASURES OBSERVED, CALL LIGHT WITHIN REACH, WILL CONTINUE TO MONITOR Addendum: 01/12/18 at 1359 by CINDA HOPKINS RN PER PM SHIFT NURSE, AYESHA, HE RECEIVED CRITICAL LAB VALUE OF HEMOGLOBIN OF 6.8, NO SOB NOTED ON PATIENT, TOLERATING AND SATURATING WELL ON CURRENT VENT SETTINGS, NO SIGNS OF BLEEDING NOTED, WILL CONT TO MONITOR
[2018-01-12 07:18] LABS: BASOPHILS % (AUTO) 0.3 % (0.0-2.0); EOSINOPHILS % (AUTO) 2.3 % (0.0-6.0); HEMATOCRIT 22 % (33-45); LYMPHOCYTES # (AUTO) 0.9 /CMM (0.8-4.8); LYMPHOCYTES % (AUTO) 7.6 % (20.0-44.0); MEAN CORPUSCULAR HGB CONC 31 g/dl (31.0-36.0); MEAN CORPUSCULAR VOLUME 94 fL (82-100); MONOCYTES # (AUTO) 1.1 /CMM (0.1-1.30); MONOCYTES % (AUTO) 9.4 % (2.0-12.0); NEUTROPHILS # (AUTO) 9.5 /CMM (1.8-8.9); NEUTROPHILS % (AUTO) 80.4 % (43.0-81.0); PLATELET COUNT (AUTO) 402 /CMM (150-450); RDW COEFFICIENT OF VARIATION 22.8 (11.5-15.0); RED BLOOD CELL COUNT(AUTO) 2.35 MIL/uL (4.0-5.2); WHITE BLOOD COUNT (AUTO) 11.8 K/uL (4.3-11.0)
[2018-01-12 07:21] LABS: HEMOGLOBIN 6.8 g/dL (11.5-14.8)
--- NOTE | 2018-01-12 07:25 | NUR ---
BOW MAKER MACHINE TENDER NOTES REPORTED TO CHARGE NURSE SOON FOR THE CRITICAL LAB VALUE OF HEMOGLOBIN 6.8 AND BUN OF 115, CHARGE NURSE SAID THAT, "SHE'LL CALL THE DOCTOR." WILL CONT TO MONITOR PT
[2018-01-12 07:39] LABS: CALCIUM, SERUM 9.3 mg/dL (8.5-10.1); PHOSPHORUS 3.9 mg/dL (2.5-4.9); POTASSIUM 4.4 mmol/L (3.5-5.1)
--- NOTE | 2018-01-12 08:26 | NUR ---
Tel nurse ,left message to service re; hgb 6.8 hct 22 [id number], waiting for returninig call back
[2018-01-12] MEDS ORDERED: INSULIN ASPART/LISPRO 100 UNIT/ML CARTRIDGE SQ PRN (08:30)
[2018-01-12] MEDS ORDERED: BLOOD SUGAR DIAGNOSTIC 1 EACH STRIP IN SCH (08:30)
[2018-01-12] MEDS ORDERED: BISACODYL SUPP (10 MG) 10 MG/SUPP.RECT SUPP.RECT RC PRN (08:30)
[2018-01-12] MEDS ORDERED: IPRATROPIUM NEB FS 0.5 MG/2.5 ML AMPUL.NEB IH PRN (08:30)
[2018-01-12] MEDS ORDERED: ALBUTEROL FS 2.5 MG/3 ML VIAL.NEB IH PRN (08:30)
[2018-01-12] MEDS ORDERED: ACETAMINOPHEN LIQUID 325 MG/10.1 ML UDC GT PRN (08:30)
--- NOTE | 2018-01-12 08:39 | NUR ---
RN NOTES DR ZARCO CALLED BACK AND SPOKE WITH CHARGE NURSE AND MADE NEW ORDER: TRANSFUSE 2 UNITS LRBC WITH HD TODAY Addendum: 01/12/18 at 1849 by CINDA HOPKINS RN CHARGE NURSE SOON ALSO ABLE TO OBTAINED CONSENT TO TRANSFUSE BLOOD FROM [facility]
[2018-01-12 08:42] LABS: LYMPHOCYTES % (MANUAL) 7 % (16-48); MONOCYTES % (MANUAL) 6 % (0-11.0); NEUTROPHILS % (MANUAL) 87 (42-76)
[2018-01-12] MEDS: VIT B CMPLX 3/FA/VIT C/BIOTIN 1 TAB TABLET PO SCH (08:51)
[2018-01-12] MEDS: CHOLECALCIFEROL 1,000 UNIT TABLET (VIT D3) GT SCH (08:51)
[2018-01-12] MEDS: DOCUSATE SODIUM LIQ 100 MG/10 ML UDC GT SCH ×2 (08:51→17:03)
[2018-01-12] MEDS: LACTOBACILLUS RHAMNOSUS GG 1 EACH CAP.SPRINK GT SCH ×2 (08:51→20:08)
[2018-01-12] MEDS: LEVETIRACETAM SOL (5 ML) 100 MG/ML UDC GT SCH ×2 (08:51→17:03)
[2018-01-12] MEDS: PROSOURCE / PROSTAT (PYXIS) 30 ML UDC GT SCH ×2 (08:54→20:08)
[2018-01-12] MEDS: MIDODRINE HCL (5MG) 5 MG TABLET GT SCH ×2 (08:55→20:11)
[2018-01-12] MEDS ORDERED: MIDODRINE HCL (5MG) 5 MG TABLET GT PRN (09:00)
[2018-01-12] MEDS ORDERED: PANTOPRAZOLE 40 MG/PACK PACK GT SCH (09:00)
[2018-01-12] MEDS ORDERED: ACETAMINOPHEN 650 MG/20.3 ML UDC PO PRN (09:30)
[2018-01-12] MEDS: Z GUARD REMEDY 2 OZ OINT TP SCH (09:55)
[2018-01-12] MEDS: HEPARIN SODIUM, PORCINE 5000 UNITS/1 ML VIAL SQ SCH ×2 (10:20→20:35)
[2018-01-12] MEDS ORDERED: EPOETIN ALFA (10,000 UNIT) 10,000 UNIT/ML VIAL IV ONE (13:00)
[2018-01-12] MEDS: ALBUTEROL FS 2.5 MG/3 ML VIAL.NEB IH SCH ×2 (13:30→19:48)
[2018-01-12] MEDS: IPRATROPIUM NEB FS 0.5 MG/2.5 ML AMPUL.NEB IH SCH ×2 (13:31→19:48)
--- NOTE | 2018-01-12 14:00 | NUR ---
RN NOTES HD STARTED BY HD NURSE, VS TAKEN PLS SEE HD NOTES
--- NOTE | 2018-01-12 14:39 | NUR ---
RN NOTES 1LRC STARTED WITH HD, BLOOD BAG VERIFIED WITH CHARGE NURSE SOON, VS WAS TAKEN, PLEASE SEE TRANSFUSION NOTES
--- NOTE | 2018-01-12 14:58 | NUR ---
RN NOTES FIRST BAG OF LRBC TRANSFUSED, PT TOLERATED WELL, MONITORED VS, VS WNL, 2ND BAG OF LRBC VERIFIED AND CHECKED WITH CHARGE NURSE SOON, VS TAKEN, WILL CONT TO MONITOR
--- NOTE | 2018-01-12 15:30 | NUR ---
RN NOTES 2ND BAG OF LRBC TRANSFUSED, PT TOLERATED TRANSFUSION WELL, NO ADVERSE REACTION NOTED, STILL ON HD WILL CONT TO MONITOR
--- NOTE | 2018-01-12 16:00 | NUR ---
RN NOTES HD DONE, VS WNL, PT IS STABLE, STILL NO ADVERSE REACTION NOTED, WILL CONT TO MONITOR
--- NOTE | 2018-01-12 19:36 | NUR ---
RN CLOSING NOTES PT IN BED, ALERT, IN STABLE CONDITION, IN NO SIGNS OF ACUTE DISTRESS, REMAINED FREE FROM INJURY AND NO SIGNS OF BLEEDING, STILL ON VENT, SATURATING WELL. NO ADVERSE REACTION NOTED FROM BLOOD TRANSFUSION NOTED, SAFETY MEASURES AT ALL TIME, ALL NEEDS ATTENDED, ENDORSED TO SHIFT NURSE FOR ALMA ROSA
--- NOTE | 2018-01-12 20:00 | NUR ---
RN TEL INITIAL NOTE PT CONT ON VENT SETTING ORDERED, NO SIGN OF DISTRESS NOTED, CONT ON GTF ORDERED WELL LAST NO RESIDUAL AT THIS TIME. S/P 2 UNITS PRBC TRANSFUSION, WITH HD IN AM, BP TRENDING LOW 90/50 GTF FLUSHED WITH PRN MIDODRINE 10 MG GIVEN ORDERED. KEPT CLEAN AND DRY WILL CONT TO MONITOR, LEVEL OF FEET ELEVATED.
[2018-01-12] MEDS: NEPRO 1,000 ML BOTTLE GT SCH (23:44)
[2018-01-13] VITALS (7 sets, daily range): BP systolic 95–105; BP diastolic 37–80
[2018-01-13] MEDS: ALBUTEROL FS 2.5 MG/3 ML VIAL.NEB IH SCH ×4 (01:32→19:30)
[2018-01-13] MEDS: IPRATROPIUM NEB FS 0.5 MG/2.5 ML AMPUL.NEB IH SCH ×4 (01:32→19:30)
--- NOTE | 2018-01-13 02:27 | NUR ---
PT SAMIRA'D ON MECHANICAL VENT. TXS GIVEN AND NO ADVERSE REACTION NOTED. SX DONE T/O SHIFT. PT SAMIRA PATENT AND SECURE. AMBU BAG AT BEDSIDE. VENT PLUGGED INTO RED OUTLET. ALARMS ARE SET AND AUDIBLE. Addendum: 01/13/18 at 0228 by TOO CAMARILLO RT Amended: Links added.
[2018-01-13] MEDS: BLOOD SUGAR DIAGNOSTIC 1 EACH STRIP IN SCH ×3 (05:04→17:58)
[2018-01-13] MEDS: MIDODRINE HCL (5MG) 5 MG TABLET GT SCH ×2 (05:11→22:14)
[2018-01-13] MEDS: PANTOPRAZOLE 40 MG/PACK PACK GT SCH (05:36)
--- NOTE | 2018-01-13 06:12 | NUR ---
RN TEL CLOSING NOTE PT CONT ON VENT SETTING ORDERED, NO SIGN OF DISTRESS NOTED, CONT ON GTF ORDERED WELL LAST NO RESIDUAL AT THIS TIME. S/P 2 UNITS PRBC TRANSFUSION, WITH HD IN AM, BP TRENDING LOW 105/60 GTF FLUSHED WITH PRN MIDODRINE 10 MG GIVEN ORDERED. KEPT CLEAN AND DRY WILL CONT TO MONITOR, LEVEL OF FEET ELEVATED
[2018-01-13 07:04] LABS: CALCIUM, SERUM 9.8 mg/dL (8.5-10.1); CREATININE 4.8 mg/dL (0.6-1.3); MAGNESIUM 2.7 mg/dL (1.8-2.4); PHOSPHORUS 3.5 mg/dL (2.5-4.9); POTASSIUM 4.4 mmol/L (3.5-5.1)
--- NOTE | 2018-01-13 07:10 | NUR ---
FINANCIAL SERVICES AUDITOR NOTES RECEIVED PT IN BED IN SEMI AVALOS POSITION, NO SIGNS OF PAIN NOTED, ON VENT, SATURATING 100%, SR ON TELE MONITOR, WITH ONGOING GTF NEPRO AT 50 ML/HR, TOLERATING WELL, GT PROPERLY IN PLACED, NO RESIDUE NOTED, WITH INTACT SL ON RIGHT FOOT, ASPIRATION PRECAUTION OBSERVED, SAFETY MEASURES OBSERVED, CALL LIGHT WITHIN REACH, WILL CONT MONITOR
[2018-01-13 07:27] LABS: BASOPHILS # (AUTO) 0.1 /CMM (0.0-0.2); BASOPHILS % (AUTO) 0.5 % (0.0-2.0); EOSINOPHILS % (AUTO) 1.6 % (0.0-6.0); HEMATOCRIT 29 % (33-45); HEMOGLOBIN 9.3 g/dL (11.5-14.8); LYMPHOCYTES % (AUTO) 7.3 % (20.0-44.0); MEAN CORPUSCULAR HGB CONC 32 g/dl (31.0-36.0); MEAN CORPUSCULAR VOLUME 90 fL (82-100); MONOCYTES # (AUTO) 1.3 /CMM (0.1-1.30); MONOCYTES % (AUTO) 9.3 % (2.0-12.0); NEUTROPHILS # (AUTO) 11.6 /CMM (1.8-8.9); NEUTROPHILS % (AUTO) 81.3 % (43.0-81.0); PLATELET COUNT (AUTO) 393 /CMM (150-450); RDW COEFFICIENT OF VARIATION 21.7 (11.5-15.0); RED BLOOD CELL COUNT(AUTO) 3.22 MIL/uL (4.0-5.2); WHITE BLOOD COUNT (AUTO) 14.2 K/uL (4.3-11.0)
[2018-01-13] MEDS: LEVOTHYROXINE SODIUM 75 MCG TABLET PO SCH (08:28)
[2018-01-13] MEDS: LEVETIRACETAM SOL (5 ML) 100 MG/ML UDC GT SCH ×2 (09:33→17:50)
[2018-01-13] MEDS: PROSOURCE / PROSTAT (PYXIS) 30 ML UDC GT SCH ×2 (09:33→22:18)
[2018-01-13] MEDS: VIT B CMPLX 3/FA/VIT C/BIOTIN 1 TAB TABLET PO SCH (09:33)
[2018-01-13] MEDS: CHOLECALCIFEROL 1,000 UNIT TABLET (VIT D3) GT SCH (09:33)
[2018-01-13] MEDS: DOCUSATE SODIUM LIQ 100 MG/10 ML UDC GT SCH ×2 (09:33→17:50)
[2018-01-13] MEDS: Z GUARD REMEDY 2 OZ OINT TP SCH (09:33)
[2018-01-13] MEDS: LACTOBACILLUS RHAMNOSUS GG 1 EACH CAP.SPRINK GT SCH ×2 (09:33→22:13)
[2018-01-13] MEDS: HEPARIN SODIUM, PORCINE 5000 UNITS/1 ML VIAL SQ SCH ×2 (09:44→22:15)
[2018-01-13 11:34] LABS: EOSINOPHILS % (MANUAL) 1 % (0-4); LYMPHOCYTES % (MANUAL) 9 % (16-48); METAMYELOCYTES % 2 % (0-0); MONOCYTES % (MANUAL) 10 % (0-11.0); MYELOCYTES % 1 % (0-0); NEUTROPHILS % (MANUAL) 77 (42-76)
--- NOTE | 2018-01-13 17:15 | NUR ---
RN NOTES ATTEMPTED TO COLLECT URINE SPECIMEN, UNABLE TO COLLECT, PT IS ANURIC, WILL ENDORSE TO PM SHIFT TO DO SECOND ATTEMPT
--- NOTE | 2018-01-13 19:07 | NUR ---
INCOME TAX ADJUSTER CLOSING NOTES PT REMAINED STABLE, NO ACUTE DISTRESS NOTED, NO SIGNS/C/O PAIN, REMAINED NO SIGNS OF BLEEDING, SAFETY MEASURES OBSERVED AT ALL TIMES, ALL NEEDS ATTENDED, PT STILL FOR COLLECTION OF URINE SAMPLE, ENDORSED TO PM SHIFT NURSE FOR ALMA ROSA
--- NOTE | 2018-01-13 20:11 | NUR ---
RN TEL INITIAL NOTE PT CONT ON VENT SETTING ORDERED, NO SIGN OF DISTRESS NOTED, CONT ON GTF ORDERED WELL LAST NO RESIDUAL AT THIS TIME, BP TRENDING LOW 90/50 GTF FLUSHED WITH PRN MIDODRINE 10 MG GIVEN ORDERED. KEPT CLEAN AND DRY WILL CONT TO MONITOR, LEVEL OF FEET ELEVATED.
[2018-01-13] MEDS: NEPRO 1,000 ML BOTTLE GT SCH (22:13)
[2018-01-14] VITALS: BP 112/55
[2018-01-14] MEDS: BLOOD SUGAR DIAGNOSTIC 1 EACH STRIP IN SCH ×5 (00:16→23:52)
[2018-01-14] MEDS: ALBUTEROL FS 2.5 MG/3 ML VIAL.NEB IH SCH ×4 (01:27→19:25)
[2018-01-14] MEDS: IPRATROPIUM NEB FS 0.5 MG/2.5 ML AMPUL.NEB IH SCH ×4 (01:27→19:25)
[2018-01-14 04:00] VITALS: BP 114/49
[2018-01-14] MEDS: PANTOPRAZOLE 40 MG/PACK PACK GT SCH (05:36)
--- NOTE | 2018-01-14 05:59 | NUR ---
PT TRACHED ON MECHANICAL VENT. TX'S GIVEN W/ NO ADVERSE REACTIONS NOTED. SUCTION DONE T/O SHIFT, SMALL THICK YELLOW SECRETIONS NOTED. AMBU BAG IS AT BEDSIDE. VENT PLUGGED INTO RED OUTLET. ALARMS ARE ON AND AUDIBLE. Addendum: 01/14/18 at 0559 by ALLAN DASH RT Amended: Links added.
--- NOTE | 2018-01-14 07:30 | NUR ---
RN TEL INITIAL NOTE PT CONT ON VENT SETTING ORDERED, NO SIGN OF DISTRESS NOTED, CONT ON GTF ORDERED WELL LAST NO RESIDUAL AT THIS TIME, . GTF FLUSHED WITH PRN MIDODRINE 10 MG GIVEN ORDERED. KEPT CLEAN AND DRY WILL CONT TO MONITOR, LEVEL OF FEET ELEVATED.
[2018-01-14 07:54] LABS: CALCIUM, SERUM 9.8 mg/dL (8.5-10.1); CREATININE 6.6 mg/dL (0.6-1.3); MAGNESIUM 2.9 mg/dL (1.8-2.4); PHOSPHORUS 4.4 mg/dL (2.5-4.9)
[2018-01-14 08:00] VITALS: BP 114/49
[2018-01-14 08:24] LABS: BASOPHILS % (AUTO) 0.3 % (0.0-2.0); EOSINOPHILS % (AUTO) 1.8 % (0.0-6.0); HEMATOCRIT 27 % (33-45); HEMOGLOBIN 8.8 g/dL (11.5-14.8); LYMPHOCYTES % (AUTO) 7.3 % (20.0-44.0); MEAN CORPUSCULAR HGB CONC 32 g/dl (31.0-36.0); MEAN CORPUSCULAR VOLUME 92 fL (82-100); MONOCYTES # (AUTO) 1.1 /CMM (0.1-1.30); MONOCYTES % (AUTO) 7.9 % (2.0-12.0); NEUTROPHILS % (AUTO) 82.7 % (43.0-81.0); PLATELET COUNT (AUTO) 390 /CMM (150-450); RDW COEFFICIENT OF VARIATION 22.3 (11.5-15.0); RED BLOOD CELL COUNT(AUTO) 2.98 MIL/uL (4.0-5.2); WHITE BLOOD COUNT (AUTO) 13.3 K/uL (4.3-11.0)
[2018-01-14] MEDS: LACTOBACILLUS RHAMNOSUS GG 1 EACH CAP.SPRINK GT SCH ×2 (08:57→21:21)
[2018-01-14] MEDS: LEVETIRACETAM SOL (5 ML) 100 MG/ML UDC GT SCH ×2 (08:57→17:18)
[2018-01-14] MEDS: DOCUSATE SODIUM LIQ 100 MG/10 ML UDC GT SCH ×2 (08:57→17:18)
[2018-01-14] MEDS: VIT B CMPLX 3/FA/VIT C/BIOTIN 1 TAB TABLET PO SCH (08:58)
[2018-01-14] MEDS: LEVOTHYROXINE SODIUM 75 MCG TABLET PO SCH (08:58)
[2018-01-14] MEDS: CHOLECALCIFEROL 1,000 UNIT TABLET (VIT D3) GT SCH (08:58)
[2018-01-14] MEDS: PROSOURCE / PROSTAT (PYXIS) 30 ML UDC GT SCH ×2 (08:59→21:21)
[2018-01-14] MEDS: HEPARIN SODIUM, PORCINE 5000 UNITS/1 ML VIAL SQ SCH ×2 (08:59→21:22)
[2018-01-14] MEDS: Z GUARD REMEDY 2 OZ OINT TP SCH (09:00)
[2018-01-14 09:37] LABS: LYMPHOCYTES % (MANUAL) 7 % (16-48); MONOCYTES % (MANUAL) 7 % (0-11.0)
[2018-01-14 09:40] LABS: BAND % (MANUAL) 3 % (0.0-5.0); EOSINOPHILS % (MANUAL) 2 % (0-4); MYELOCYTES % 1 % (0-0); NEUTROPHILS % (MANUAL) 80 (42-76)
[2018-01-14 12:00] VITALS: BP 114/49
[2018-01-14] MEDS ORDERED: ALBUMIN 25% 25 GM in PREMIX 1 EA IV PRN (12:30)
[2018-01-14] MEDS ORDERED: EPOETIN ALFA (10,000 UNIT) 10,000 UNIT/ML VIAL SQ ONE (13:30)
--- NOTE | 2018-01-14 15:08 | NUR ---
RT SHIFT REPORT, PT. 68 Y OLD FEMALE REMAIN TRACHED PORTEX # 8 WITH NOTED SETTINGS, VENT ALARMS ARE SET AND AUDIBLE WITH AMBU BAG AT THE BEDSIDE. RECTIFYING OPERATOR CUFF PRESSURE NOTED. VENT IS PLUGGED INTO RED OUTLET. B/S BILATERALLY RALES EQUAL CHEST RISE NOTED. HME CHANGED SX MODERATE THICK YELLOW SECRETIONS. NO RESPIRATORY DISTRESS NOTED T/O SHIFT, WILL CONTINUE TO MONITOR. REPORT WILL BE GIVEN TO PM SHIFT. PT REMAIN STABLE. Addendum: 01/14/18 at 1508 by TIFFANIE HASSAN RT Amended: Links added.
[2018-01-14 16:00] VITALS: BP 118/71
[2018-01-14 20:00] VITALS: BP 102/60
[2018-01-14] MEDS: NEPRO 1,000 ML BOTTLE GT SCH (21:23)
[2018-01-15] VITALS (7 sets, daily range): BP systolic 75–119; BP diastolic 36–98
[2018-01-15] MEDS: ALBUTEROL FS 2.5 MG/3 ML VIAL.NEB IH SCH ×4 (00:59→19:07)
[2018-01-15] MEDS: IPRATROPIUM NEB FS 0.5 MG/2.5 ML AMPUL.NEB IH SCH ×4 (00:59→19:07)
--- NOTE | 2018-01-15 03:23 | NUR ---
RT NOTE: RECEIVED TRACH PT ON VENT WITH NOTED SETTINGS . PT TOLERATING VENT SETTINGS. Q6 BREATHING TX GIVEN PER MD'S ORDERED. NO ADVERSE REACTION NOTED. SUCTIONED MODERATE AMOUNT OF THICK YELLOW SECRETIONS. NO RESP DISTRESS NOTED. VENT ALARMS SET AND AUDIBLE. AMBU BAG AT BEDSIDE. VENT PLUGGED INTO RED OUTLET. WILL CONTINUE TO MONITOR.
[2018-01-15] MEDS: BLOOD SUGAR DIAGNOSTIC 1 EACH STRIP IN SCH ×3 (05:24→18:29)
[2018-01-15] MEDS: PANTOPRAZOLE 40 MG/PACK PACK GT SCH (05:30)
--- NOTE | 2018-01-15 06:57 | NUR ---
RN NOTES PT REMAINED IN STABLE CONDITION THROUGHOUT THE SHIFT. NO ACUTE RESP DISTRESS. AFEBRILE. TRACH PORTEX 8 WITH VENT SETTING AC 14 TV 500 FIO2 40% AND PEEP 5 TOLERATED WELL. SUCTIONED WITH LARGE AMOUNT OF THICK YELLOWISH SECRETION. ALL DUE MEDICINE ADMINISTERED ORDERED. PT IS NON VERBAL. TELE MONITOR REVEALS SR . SKIN IS INTACT. GTF NEPHRO @ 50 ML/HR TOLERATED WELL PATENCY CHECKED. AND FLUSHED WELL. / IV SITE ON RIGHT FOOT G 20 SL INTACT AND PATENT. LCW HD CATH KEPT CLEAN AND DRY. NO S/S/ OF HYPO OR HYPERGLYCEMIA . KEPT PT CLEAN AND DRY. REPOSITIONED AND TURNED PROTOCOL AND PRN. OFFLOADED EXT WITH PILLOWS. WILL ENDORSED CONTINUITY OF CARE TO AM NURSE,.
[2018-01-15 07:12] LABS: CALCIUM, SERUM 9.8 mg/dL (8.5-10.1); MAGNESIUM 2.7 mg/dL (1.8-2.4); PHOSPHORUS 4.4 mg/dL (2.5-4.9); POTASSIUM 4.1 mmol/L (3.5-5.1)
[2018-01-15 07:13] LABS: BASOPHILS % (AUTO) 0.3 % (0.0-2.0); EOSINOPHILS % (AUTO) 2.4 % (0.0-6.0); HEMATOCRIT 27 % (33-45); HEMOGLOBIN 8.4 g/dL (11.5-14.8); LYMPHOCYTES % (AUTO) 8.3 % (20.0-44.0); MEAN CORPUSCULAR HGB CONC 32 g/dl (31.0-36.0); MEAN CORPUSCULAR VOLUME 92 fL (82-100); MONOCYTES # (AUTO) 1.2 /CMM (0.1-1.30); NEUTROPHILS # (AUTO) 9.7 /CMM (1.8-8.9); PLATELET COUNT (AUTO) 341 /CMM (150-450); RDW COEFFICIENT OF VARIATION 22.1 (11.5-15.0); RED BLOOD CELL COUNT(AUTO) 2.88 MIL/uL (4.0-5.2); WHITE BLOOD COUNT (AUTO) 12.2 K/uL (4.3-11.0)
--- NOTE | 2018-01-15 07:45 | NUR ---
ASSISTANT STRENGTH COACH NOTE: RECEIVED PATIENT IN BED, AWAKE WITH CONFUSION. VENT-TRACH DEPENDENT SATURATING 99%. NO FACIAL GRIMACING NOTED. HOB ELEVATED. ON PROMOTIONS TEAM LEADER, SR HR= 85. AFEBRILE. ON GT FEEDING NEPHRO @50CC/HR WITH NO RESIDUAL NOTED. (R) FOOT IV LINE NOTED PATENT AND INTACT. ON (B) SOFT WRIST RESTRAINT NOTED IN PLACED DUE TO THE PATIENT'S AGGRESSIVE BEHAVIOR. CALL LIGHT WITHIN REACH. NEEDS ANTICIPATED.
[2018-01-15] MEDS: LEVOTHYROXINE SODIUM 75 MCG TABLET PO SCH (08:10)
[2018-01-15] MEDS: VIT B CMPLX 3/FA/VIT C/BIOTIN 1 TAB TABLET PO SCH (08:11)
[2018-01-15] MEDS: LACTOBACILLUS RHAMNOSUS GG 1 EACH CAP.SPRINK GT SCH ×2 (08:11→21:16)
[2018-01-15] MEDS: LEVETIRACETAM SOL (5 ML) 100 MG/ML UDC GT SCH ×2 (08:12→17:57)
[2018-01-15] MEDS: CHOLECALCIFEROL 1,000 UNIT TABLET (VIT D3) GT SCH (08:12)
[2018-01-15] MEDS: DOCUSATE SODIUM LIQ 100 MG/10 ML UDC GT SCH ×2 (08:12→17:57)
[2018-01-15] MEDS: HEPARIN SODIUM, PORCINE 5000 UNITS/1 ML VIAL SQ SCH ×2 (08:13→21:00)
[2018-01-15] MEDS: PROSOURCE / PROSTAT (PYXIS) 30 ML UDC GT SCH ×2 (08:16→21:16)
--- NOTE | 2018-01-15 08:44 | NUR ---
COSTUME SEAMSTRESS NOTE: CALLED AND SPOKE WITH DR. KENAN GUNN RE: THE PATIENT'S LOW BP. MD WAS INFORMED THAT PATIENT WAS TURNED AND REPOSITIONED, ELEVATED (B) LEGS WITH PILLOW, BUT PATIENT'S BP WAS LOW (BP= 75/36 AND HR= 82). MD GAVE A NS 500 ML IV BOLUS X1 ORDER. REPORTED TO MD RE: MAGNESIUM AND SODIUM LEVEL. MD WITH NO NEW ORDER AT THIS TIME.
[2018-01-15] MEDS ORDERED: IV NS 0.9% 500 ML IV ONE ×2 (09:00→11:00)
[2018-01-15] MEDS: Z GUARD REMEDY 2 OZ OINT TP SCH (09:23)
[2018-01-15 09:25] LABS: BAND % (MANUAL) 1 % (0.0-5.0); EOSINOPHILS % (MANUAL) 1 % (0-4); LYMPHOCYTES % (MANUAL) 9 % (16-48); MONOCYTES % (MANUAL) 18 % (0-11.0); NEUTROPHILS % (MANUAL) 71 (42-76)
--- NOTE | 2018-01-15 09:45 | NUR ---
RT NOTE: Pt vent settings changed Peep 0, per Dr Rivera's orders. Nurse aware. Addendum: 01/15/18 at 1141 by ASIF LEVY RT Amended: Links added.
--- NOTE | 2018-01-15 10:00 | NUR ---
OCCUPATIONAL THERAPY CO DIRECTOR NOTE: STOOL WAS COLLECTED AND SENT TO LABORATORY. URINE WAS UNABLE TO COLLECT AT THIS TIME.
--- NOTE | 2018-01-15 10:35 | NUR ---
ROCKBOARD LATHER NOTE: DR. JORDAN WAS MAKING ROUND AND HE WAS INFORMED ABOUT THE PATIENT'S CURRENT BP AND THE PEEP 5.0. HE WAS ALSO INFORMED THAT DR. KENAN GUNN GAVE AN ORDER FOR IV NS OF 500 ML X1. PER MD, ADD ANOTHER IV BOLUS OF 500ML X 1.
--- NOTE | 2018-01-15 12:46 | NUR ---
DIESEL TRUCK CRANE OPERATOR NOTE: RECHECKED THE PATIENT'S BP AFTER THE 2ND BAG OF NS 500 ML BOLUS BP= 97/54, HR= 87. WILL CONTINUE TO MONITOR THE PATIENT'S BP.
[2018-01-15 16:57] LABS: OCCULT BLOOD STOOL POSITIVE (NEGATIVE)
--- NOTE | 2018-01-15 17:47 | NUR ---
RT NOTE PATIENT RECEIVED TRACHED AND ON VENT W NOTED SETTINGS. VENT IS PLUGGED INTO THE RED OUTLET W AMBUBAG AT THE HEAD OF THE BED. ALARMS ARE ON AND AUDIBLE. PATIENT IS AWAKE AND CONFUSED. MODERATE AMOUNTS OF THICK YELLOW AND WHITE SECRETIONS OBSERVED. NO DISTRESS NOTED AT THIS TIME. WILL CONTINUE TO MONITOR. Addendum: 01/15/18 at 1753 by ASIF LEVY RT Amended: Links added.
--- NOTE | 2018-01-15 19:12 | NUR ---
ORNAMENTAL METAL WORKER HELPER NOTE: CALLED AND PAGED DR. TINOCO RE: THE PATIENT'S OCCULT BLOOD STOOL RESULT= POSITIVE. AWAITING FOR MD'S REPLY. REPORT GIVEN TO PM SHIFT NURSE FOR CONTINUITY OF CARE. EXIT CARE WAS DONE. PATIENT IS ON STABLE CONDITION. PATIENT HAD BM X2 DURING THE SHIFT. STILL NOTED WITH AGGRESSIVENESS DURING NURSING CARE. BILATERAL SOFT WRIST RESTRAINT STILL IN PLACED.
--- NOTE | 2018-01-15 19:30 | NUR ---
TRAINING PERSONNEL SUPERVISOR INITIAL NOTE PT RECEIVED AWAKE IN BED. VENT SETTINGS WELL TOLERATED. NOTED WITH RESTLESSNESS AND ON BILATERAL SOFT WRIST RESTRAINTS. CIRCULATION CHECKED WITH PALPABLE PULSES AND CAP REFILL. SPOKE WITH TASHA RN AT FACILITY TO GIVE REPORT OF DISCHARGE. ALL NEEDS ATTENDED TO PROMPTLY. HOB ELEVATED AND ON ASPIRATION PRECAUTIONS. WILL CONTINUE TO MONITOR.
--- NOTE | 2018-01-15 19:36 | NUR ---
TEMPLATE CUTTER NOTE: RECEIVED A CALL BACK FROM DR. TINOCO AND HE WAS AWARE OF THE POSITIVE OCCULT BLOOD STOOL. VERIFIED WITH MD RE: THE PATIENT'S DISCHARGE BACK TO THE DETENTION. PER MD, IT'S OK TO SEND HER BACK TO THE DETENTION. ENDORSED TO PM SHIFT NURSE TO CONTINUE WITH THE DISCHARGE. AMBULANCE PERSONNEL CALLED AND SAID THAT THE PATIENT WILL BE GETTING PICKED UP AT 1999.
[2018-01-15] MEDS ORDERED: MIDODRINE HCL 2.5 MG TABLET GT PRN (20:16)
--- NOTE | 2018-01-15 21:00 | NUR ---
RN NOTE SPOKE WITH DR TINOCO REGARDING LOW BLOOD PRESSURE. AMBULANCE REFUSING TO TRANSFER PT WITH LOW BP. WITH ORDERS TO BOLUS 250 ML OF NS AND SEND BACK TO FACILITY. ORDERS CARRIED OUT. AMBULANCE PLACED PT ON WILL CALL UNTIL BP IS RESOLVED.
--- NOTE | 2018-01-15 23:00 | NUR ---
RN NOTE PT PICKED UP BY AMBULANCE AND TRANSFERRED SAFELY WITH RT AT BEDSIDE. AWAKE AND SATURATING WELL. VENT SETTINGS WELL TOLERATED. NO DISTRESS OR FACIAL GRIMACE NOTED.
[2018-02-09] MEDS ORDERED: HYDR-4076 GT (09:27)
[2018-02-09] MEDS ORDERED: AMLO10TA6 GT (09:27)
[2018-02-09] MEDS ORDERED: HYDR20TA3 GT (09:27)
[2018-02-09] MEDS ORDERED: ACID1TAB12 GT (09:27)
== END 2018-01-15 23:00 | DRG 682 ==
LOC: ER 15:23 → TELE1 18:24
PROVIDERS: ADMIT Internal Medicine; ATTEND Internal Medicine
PROC: 5A1945Z Respiratory Ventilation, 24-96 Consecutive Hours (ICD-10-PCS; principal; 2018-01-11)
PROC: 5A1D70Z Performance of Urinary Filtration, Intermittent, Less than 6 Hours Per Day (ICD-10-PCS; 2018-01-12)
PROC: 30233N1 Transfusion of Nonautologous Red Blood Cells into Peripheral Vein, Percutaneous Approach (ICD-10-PCS; 2018-01-12)
PROC: 5A1D70Z Performance of Urinary Filtration, Intermittent, Less than 6 Hours Per Day (ICD-10-PCS; 2018-01-14)
DX: I12.0 Hypertensive chronic kidney disease with stage 5 chronic kidney disease or end stage renal disease (principal); N18.6 End stage renal disease; G93.40 Encephalopathy, unspecified; Z99.11 Dependence on respirator [ventilator] status; J96.11 Chronic respiratory failure with hypoxia; Z99.2 Dependence on renal dialysis; E03.9 Hypothyroidism, unspecified; D72.829 Elevated white blood cell count, unspecified; E11.22 Type 2 diabetes mellitus with diabetic chronic kidney disease; J44.9 Chronic obstructive pulmonary disease, unspecified; G40.909 Epilepsy, unspecified, not intractable, without status epilepticus; Z87.440 Personal history of urinary (tract) infections; Z88.0 Allergy status to penicillin; Z88.2 Allergy status to sulfonamides; F09 Unspecified mental disorder due to known physiological condition; E83.9 Disorder of mineral metabolism, unspecified; I95.3 Hypotension of hemodialysis; D63.1 Anemia in chronic kidney disease; Z79.4 Long term (current) use of insulin
CPT/HCPCS: 31720; 36415; 71045-TC; 80048-TC; 82272-TC; 82962-TC; 83540-TC; 83735-TC; 84100-TC; 85025-TC; 85730-TC; 86850-TC; 86921-TC; 87040-TC; 87081-TC; 90935-TC; 94003-TC; 94760-TC; A4216; A4606; A6402; A6403; J0885; J1644; J1815; J1953; J7040; J7050; P9016-BL; P9047; Z7610

== ENCOUNTER 2018-03-08 12:41 | Inpatient (IN) | payer MEDICARE, OTHER ==
[~2018-03-08] VITALS: Ht 165.1 cm; Wt 72.6 kg
[~2018-03-08 12:41] MED LIST changes: +ACID1TAB12 GT; +AMIN30LI4 GT; +AMLO10TA2 GT; -AMLO10TA6 GT; +BLOO-668 IN; +CHOL100044 GT; +DOCU50LI GT; +FOLI0.8T23 GT; +HYDR-4076 GT; -HYDR-4076 PO; -HYDR-552 GT; -HYDR10TA14 GT; -INSU100I14 SQ; +INSU100V11 SQ; -LACT1CAP72 GT; -LORA0.5T GT; -MERO500V IV; -OLAN5TAB3 GT; +OMEP20TA5 GT; -PANT40SU2 GT; -Prosource GT; -RXVAN XX; -THIA100T13 GT; -[UNRECOGNIZED DRUG - CODE] GT
--- NOTE | 2018-03-08 12:45 | NUR ---
BIBPA FOR PEG-TUBE MALFUNCTION. RR IS EVEN AND UNLABORED WITH NAD NOTED. CAME IN WITH VENT WITH THE FOLLOWING SETTINGS: AC=14, UZ=511, PEEP=5 FIO2=40%. SKIN IS WARM AND NON DIAPHORETIC. AWAITING MD FOR EVAL. PLACED ON THE MONITOR. WILL CONTINUE TO MONITOR THE PATIENT.
[2018-03-08 12:55] VITALS: BP 98/51
--- NOTE | 2018-03-08 12:55 | NUR ---
RT Pt brought into ER, pt received with a portex 8 trach on the vent with noted settings by transport RT. Pt is awake and alert. Vent alarms are set and audible with BVM by bedside. PAPER CONE DRYING MACHINE OPERATOR cuff pressure noted. Vent is plugged into red outlet. Pt sx'd small thin white/clear secretions. No respiratory distress noted at this time, will continue to monitor. Addendum: 03/08/18 at 1325 by PAULINO MAGAÑA RT Amended: Links added.
[2018-03-08] MEDS ORDERED: IV NS 0.9% 500 ML BAG IV ONE (13:00)
--- NOTE | 2018-03-08 13:10 | NUR ---
CALLED NURSING PERSONAL ATTENDANT FOR TELE BED
--- NOTE | 2018-03-08 13:31 | NUR ---
PAGED DR KENAN GUNN FINAL APPLICATION REVIEWER FOR DR CALLE/LAKEISHA
[2018-03-08] MEDS ORDERED: ACET650S26 GT (13:35)
[2018-03-08] MEDS ORDERED: MIDO10TA GT (13:35)
[2018-03-08] MEDS ORDERED: AMIK250V13 IV (13:35)
--- NOTE | 2018-03-08 13:46 | NUR ---
PT ASSIGNED TELE [phone]
--- NOTE | 2018-03-08 13:49 | NUR ---
REPAGED DR KENAN GUNN FOR ADMISSION
[2018-03-08 14:02] LABS: BASOPHILS # (AUTO) 0.1 /CMM (0.0-0.2); BASOPHILS % (AUTO) 0.6 % (0.0-2.0); EOSINOPHILS % (AUTO) 2.4 % (0.0-6.0); HEMATOCRIT 30 % (33-45); HEMOGLOBIN 9.1 g/dL (11.5-14.8); LYMPHOCYTES # (AUTO) 0.9 /CMM (0.8-4.8); LYMPHOCYTES % (AUTO) 9.8 % (20.0-44.0); MEAN CORPUSCULAR HEMOGLOBIN 28 PG (26.0-33.0); MEAN CORPUSCULAR HGB CONC 31 g/dl (31.0-36.0); MEAN CORPUSCULAR VOLUME 91 fL (82-100); MONOCYTES # (AUTO) 0.7 /CMM (0.1-1.30); MONOCYTES % (AUTO) 8.1 % (2.0-12.0); NEUTROPHILS % (AUTO) 79.1 % (43.0-81.0); PLATELET COUNT (AUTO) 265 /CMM (150-450); RDW COEFFICIENT OF VARIATION 22.1 (11.5-15.0); RED BLOOD CELL COUNT(AUTO) 3.23 MIL/uL (4.0-5.2); WHITE BLOOD COUNT (AUTO) 8.9 K/uL (4.3-11.0)
[2018-03-08 14:07] LABS: CALCIUM, SERUM 9.2 mg/dL (8.5-10.1); CREATININE 6.6 mg/dL (0.6-1.3); POTASSIUM 4.2 mmol/L (3.5-5.1)
--- NOTE | 2018-03-08 15:17 | NUR ---
COMPRESSOR ASSEMBLER NOTES RECEIVED PT FROM E.R. STAFF, PT ADMITTED FOR GT REPLACEMENT, PT AWAKE, NON VERBAL, NO SIGN OF PAIN OR DISTRESS, ASSISTED TO BED, ON TRACH/VENT, RT AT BEDSIDE, ROOM SET UP ORIENTATION PROVIDED, REPOSITIONED FOR COMFORT, KEPT WARM AND COMFORTABLE, AWAITING ADMISSION ORDERS FROM DR. GUNN.
[2018-03-08 15:56] VITALS: BP 93/47
[2018-03-08 16:00] VITALS: BP 90/56
[2018-03-08] MEDS ORDERED: ONDANSETRON HCL/PF 4 MG/2 ML VIAL IV PRN (18:00)
[2018-03-08] MEDS ORDERED: INSULIN REGULAR, HUMAN 100 UNIT/ML 3 ML VIAL SQ PRN (18:00)
--- NOTE | 2018-03-08 18:30 | NUR ---
OPTOMETRIST NOTES PT IN BED, AWAKE, MOUTHS WORDS, DENIES PAIN, NOT IN DISTRESS, ADMIT ORDERS GIVEN BY DR. GUNN, PER MD, OK TO CONTINUE HOME MEDS AND HOLD GT FEEDING UNTIL SEEN BY DR. Rosana TINOCO, BODY CHECK DONE, PM CARE RENDERED, ALL NEEDS ATTENDED, MED RECON FAXED TO PHARMACY, CONFIRMED RECEIVED BY REED
--- NOTE | 2018-03-08 19:00 | NUR ---
RN OPENING NOTES PT TRACH/VENT. NONVERBAL. NO APPARENT S/S OF PAIN, DISTRESS OR SOB AT THIS TIME. PT IS TELE MONITORED AT SINUS RHYTHM. PT HAS A RIGHT WRIST #20 IV, RIGHT FOOT IV, AND LEFT FEMORAL HD CATH, INTACT AND PATENT. PT HAS A CLAMPED GTUBE. PER DR GUNN HOLD FEEDING THROUGH GTUBE UNTIL SEEN BY DR TINOCO. SAFETY PRECAUTIONS IN PLACE, BED IN LOWEST LOCKED POSITION, X3 SIDE RAILS UP, AND CALL LIGHT WITHIN REACH. WILL CONTINUE TO MONITOR.
[2018-03-08] MEDS: BLOOD SUGAR DIAGNOSTIC 1 EACH STRIP IN SCH ×2 (19:02→23:04)
--- NOTE | 2018-03-08 19:30 | NUR ---
RN OPENING NOTES PT ON VENT/TRACH, MOUTHS WOUNDS. NO APPARENT S/S OF PAIN, DISTRESS OR SOB AT THIS TIME. PT HAS A RIGHT WRIST IV #20 INTACT AND PATENT. PT ALSO HAS A RIGHT FOOT IV AND A LEFT FEMORAL HD CATH. PT TELE MONITORED AND CONTINUOUS PULSE OXIMETRY. PT GTUBE SITE CLEAN. SAFETY PRECAUTIONS IN PLACE, BED IN LOWEST LOCKED POSITION, X3 SIDE RAILS UP, AND CALL LIGHT WITHIN REACH. WILL CONTINUE TO MONITOR.
[2018-03-08 20:00] VITALS: BP 116/66
--- NOTE | 2018-03-08 20:02 | NUR ---
pt received with a portex 8 trach and on mechanical ventilation. Pt is awake and alert. Vent alarms are set and audible with BVM by bedside. RN DIABETES cuff pressure noted. Vent is plugged into red outlet. Pt sx'd small thin white/clear secretions. No respiratory distress noted at this time, will continue to monitor.
[2018-03-08] MEDS: IV D5/0.45 NACL 1,000 ML IV PRN (20:16)
[2018-03-08] MEDS ORDERED: ALBUTEROL FS 2.5 MG/3 ML VIAL.NEB NEB PRN (20:30)
[2018-03-08] MEDS ORDERED: IPRATROPIUM NEB FS 0.5 MG/2.5 ML AMPUL.NEB IH PRN (20:30)
[2018-03-08] MEDS ORDERED: BISACODYL SUPP (10 MG) 10 MG/SUPP.RECT SUPP.RECT RC PRN (20:30)
[2018-03-08] MEDS ORDERED: AMIKACIN 500 MG in IV D5W 100 ML IV SCH (21:00)
[2018-03-08] MEDS ORDERED: DOSING PER PHARMACY-AMIKACI IV XX PRN (21:30)
[2018-03-08] MEDS: HEPARIN SODIUM, PORCINE 5000 UNITS/1 ML VIAL SQ SCH (22:29)
--- NOTE | 2018-03-08 22:34 | NUR ---
RN NOTES PT ATTEMPTING TO PULL OUT LINE AND TRACH. SPOKE WITH DR SUAZO AND HE ORDERED FOR PATIENT TO HAVE BILATERAL SOFT WRIST RESTRAINTS. ALSO CLARIFIED ORDERS TO GIVE MEDICATIONS VIA GTUBE. PER MD CONTINUE UNLESS UNABLE. WILL CONTINUE TO MONITOR. Addendum: 03/09/18 at 0650 by ELZA RAMIREZ RN ALSO PER MD. HOLD HEPARIN PER POSSIBLE REPLACEMENT OF GTUBE.
[2018-03-08] MEDS: LEVETIRACETAM SOL (5 ML) 100 MG/ML UDC GT SCH (22:43)
[2018-03-08] MEDS: ACIDOPHILUS/BULGARICUS 1 EACH TAB.CHEW GT SCH (22:43)
[2018-03-09] MEDS: LORAZEPAM INJ 2 MG/ML VIAL IV PRN ×2 (00:07→21:07)
[2018-03-09] MEDS: ALBUTEROL FS 2.5 MG/0.5 ML VIAL.NEB NEB SCH ×4 (01:30→19:49)
[2018-03-09] MEDS: IPRATROPIUM NEB FS 0.5 MG/2.5 ML AMPUL.NEB IH SCH ×4 (01:30→19:49)
[2018-03-09 04:00] VITALS: BP 91/50
[2018-03-09] MEDS: BLOOD SUGAR DIAGNOSTIC 1 EACH STRIP IN SCH ×4 (06:01→23:12)
[2018-03-09 06:40] LABS: CALCIUM, SERUM 9.1 mg/dL (8.5-10.1); CREATININE 7.4 mg/dL (0.6-1.3); PHOSPHORUS 5.2 mg/dL (2.5-4.9); POTASSIUM 4.9 mmol/L (3.5-5.1)
--- NOTE | 2018-03-09 06:48 | NUR ---
RN CLOSING NOTES PT TRACH/VENT. NONVERBAL. NO APPARENT S/S OF PAIN OR SOB OVERNIGHT. PT IS TELE MONITORED AT SINUS RHYTHM. PT HAS A RIGHT WRIST #20 IV RUNNING D5 1/2NS@30ML/HR, RIGHT FOOT IV, AND LEFT FEMORAL HD CATH, INTACT AND PATENT. PT HAS A CLAMPED GTUBE. ABLE TO GIVE MEDICATION THROUGH GT. PER DR GUNN HOLD FEEDING THROUGH GTUBE UNTIL SEEN BY DR TINOCO. SAFETY PRECAUTIONS IN PLACE, BED IN LOWEST LOCKED POSITION, X3 SIDE RAILS UP, AND CALL LIGHT WITHIN REACH. WILL ENDORSE TO DAY SHIFT NURSE FOR CONTINUITY OF CARE.
[2018-03-09 07:05] LABS: BASOPHILS % (AUTO) 0.3 % (0.0-2.0); EOSINOPHILS % (AUTO) 4.5 % (0.0-6.0); HEMATOCRIT 31 % (33-45); HEMOGLOBIN 9.5 g/dL (11.5-14.8); LYMPHOCYTES # (AUTO) 0.9 /CMM (0.8-4.8); LYMPHOCYTES % (AUTO) 13.2 % (20.0-44.0); MEAN CORPUSCULAR HEMOGLOBIN 29 PG (26.0-33.0); MEAN CORPUSCULAR HGB CONC 31 g/dl (31.0-36.0); MEAN CORPUSCULAR VOLUME 94 fL (82-100); MONOCYTES # (AUTO) 0.7 /CMM (0.1-1.30); MONOCYTES % (AUTO) 10.2 % (2.0-12.0); NEUTROPHILS # (AUTO) 5.1 /CMM (1.8-8.9); NEUTROPHILS % (AUTO) 71.8 % (43.0-81.0); PLATELET COUNT (AUTO) 281 /CMM (150-450); RDW COEFFICIENT OF VARIATION 23.9 (11.5-15.0); RED BLOOD CELL COUNT(AUTO) 3.31 MIL/uL (4.0-5.2); WHITE BLOOD COUNT (AUTO) 7.1 K/uL (4.3-11.0)
--- NOTE | 2018-03-09 07:15 | NUR ---
TELE/RN OPENING NOTE PATIENT IS RECEIVED IN BED ON [facility] VENT WITH A PORTEX 8 TRACH. PATIENT ALERT X1, RARELY MOUTHS WORDS. RESPIRATION REGULAR AND UNLABORED. NO MANIFESTATION OF DISTRESS. VENT ALARMS ON AND FUNCTIONING WELL. RIGHT WRIST G 20 AND IV FLUID INFUSING WITH NO S/S INFILTRATION. BED LOW AND LOCKED. SIDE RAILS UP X3. CALL LIGHT WITHIN REACH. WILL CONTINUE TO MONITOR.
--- NOTE | 2018-03-09 07:29 | NUR ---
PT RECEIVED ON [facility] VENT WITH A PORTEX 8 TRACH. PT VENT SETTINGS ARE FOLLOWING: AC 14, VT 500, FIO2 40%, PEEP 5. VENT IS PLUGGED INTO RED OUTLET. PT IS ALERT, AWAKE AND STABLE. VENT ALARMS ARE ON AND AUDIBLE. PT SUCTIONED WITH MOD THIN WHITE/YELLOW SECRETIONS. AMBU BAG IS AT BEDSIDE. NO RESP DISTRESS NOTED AT THIS TIME, WILL CONT TO MONITOR PT. Addendum: 03/09/18 at 0734 by ALLAN DASH RT Amended: Links added.
[2018-03-09] MEDS: LEVOTHYROXINE SODIUM 75 MCG TABLET GT SCH (07:30)
[2018-03-09] MEDS ORDERED: FEE PK DOSING 1 MIN EA MC ONE (07:38)
[2018-03-09] MEDS ORDERED: ALTEPLASE CATHFLO 2 MG/VIAL IV ONE (08:00)
--- NOTE | 2018-03-09 08:04 | NUR ---
TELE/RN NOTE DIALYSIS NOT DONE DUE TO HD CATH BEING CLOTTED PER DIALYSIS NURSE. CATHFLO ACTIVASE IS ADMINISTERED PER ORDER FOR CATH DECLOTTING. PER DIALYSIS NURSE DIALYSIS WILL BE DONE TOMORROW.
[2018-03-09] MEDS: ACIDOPHILUS/BULGARICUS 1 EACH TAB.CHEW GT SCH ×2 (09:00→20:20)
[2018-03-09] MEDS: VIT B CMPLX 3/FA/VIT C/BIOTIN 1 TAB TABLET GT SCH (09:00)
[2018-03-09] MEDS: LEVETIRACETAM SOL (5 ML) 100 MG/ML UDC GT SCH ×2 (09:00→20:20)
[2018-03-09] MEDS: DOCUSATE SODIUM LIQ 100 MG/10 ML UDC GT SCH ×2 (09:00→16:10)
[2018-03-09] MEDS: PROSOURCE / PROSTAT (PYXIS) 30 ML UDC GT SCH (09:00)
[2018-03-09] MEDS: CHOLECALCIFEROL 1,000 UNIT TABLET (VIT D3) GT SCH (09:00)
[2018-03-09] MEDS: HEPARIN SODIUM, PORCINE 5000 UNITS/1 ML VIAL SQ SCH ×2 (09:00→20:09)
--- NOTE | 2018-03-09 09:34 | NUR ---
TELE/RN NOTE HEPARIN 5000 UNIT DUE AT 0900 HELD PER MD. THE PATIENT WITH POSSIBLE GT REPLACEMENT.
[2018-03-09] MEDS: Z GUARD REMEDY 2 OZ OINT TP SCH (09:50)
[2018-03-09] MEDS: AMLODIPINE BESYLATE 10 MG TABLET GT SCH (11:00)
[2018-03-09] MEDS: PANTOPRAZOLE 40 MG/PACK PACK GT SCH ×2 (11:30→11:33)
--- NOTE | 2018-03-09 11:30 | NUR ---
WOUND CARE CONSULT PATIENT SEEN AND SKIN INTEGRITY ASSESSMENT DONE. PLEASE SEE CAPTION WRITER ASSESSMENT IN PCS. PATIENT WITH BALDEMAR OF 12. RECOMMEND CONTINUE USE OF Z GUARD TO PERINEAL, SACRAL AND BUTTOCKS FOR SKIN/MOISTURE MANAGEMENT, BILATERAL HEEL FLOATING, TURNING AND REPOSITIONING Q2H. ALL PRESSURE ULCER PREVENTION MEASURES NOTED TO BE IN PLACE. WILL SEE PATIENT PRN. ALL DISCUSSED WITH RN AT BEDSIDE. Addendum: 03/09/18 at 1152 by OFELIA ALLEN RN Amended: Links added.
[2018-03-09 12:00] VITALS: BP 115/62
--- NOTE | 2018-03-09 15:31 | NUR ---
TELE/RN NOTE PATIENT IS SEEN AND EXAMINED BY DR VELIA GRAYSON WITH NEW ORDER OF NPO EXCEPT MEDS. THE ORDER IS READ BACK, VERIFIED. NOTED AND CARRIED OUT.
--- NOTE | 2018-03-09 15:32 | NUR ---
TELE/RN NOTE PER DR VELIA GRAYSON PATIENT WILL BE SEEN Y DR TINOCO FOR POSSIBLE GT REPLACEMENT.
--- NOTE | 2018-03-09 15:33 | NUR ---
TELE/RN NOTE PAGED DR TINOCO`S [place] ATTENDANT KAMARI, STILL WAITING FOR REPLY.
[2018-03-09 16:33] VITALS: BP 96/51
--- NOTE | 2018-03-09 18:52 | NUR ---
TELE/RN CLOSING NOTE PATIENT IN BED AWAKE. ABLE TO MOUTH WORDS FROM TIME TO TIME. PATIENT IS ALERT AND ORIENTED X1. PATIENT IS ON [facility] VENT WITH A PORTEX 8 TRACH. VENT ALARMS ON AND FUNCTIONING WELL. PATIENT TOLERATES VENT WELL.. RIGHT WRIST G 20 AND IV FLUID INFUSING WITH NO S/S INFILTRATION. PATIENT IS NPO EXCEPT MEDS. TOLERATED ADMINISTERED MEDICATION WELL. ABDOMEN SOFT AND NON-DISTENDED. NO RESIDUAL NOTED. BED LOW AND LOCKED. SIDE RAILS UP X3. CALL LIGHT WITHIN REACH. WILL ENDORSE TO PROCESSOR HELPER.
--- NOTE | 2018-03-09 19:16 | NUR ---
SOFTWARE ENGINEER OPENING NOTES: RECEIVED PT ON MECHANICAL VENT PORTEX #8, TV 500, AC 14, FIO2 35%, AND PEEP 5. PT OPENES EYES BUT IS NONVERBAL AND CAN MOUTH WORDS. PT ON [employer] BOX. PT HAS BILATERAL SOFT WRIST RESTRAINTS. PT HAS HD CATH ON L FEMORAL AREA AND IS INTACT. PT HAS IV ON R WRIST #20G AND IS BEING INFUSED WITH IV D5 1/2 NS AT 30ML/HR. CALL LIGHT SAMUEL PT'S REACH. BED KEPT IN LOW, LOCKED POSITION, AND SIDE RAILS X 3 UP. WILL CONTINUE TO MONITOR PT. Addendum: 03/09/18 at 191 by YAMILETH SULLIVAN RN PT ON [employer] BOX AND READING SHOWS SR 80S. Addendum: 03/09/18 at 1950 by YAMILETH SULLIVAN RN fio2 40% Addendum: 03/09/18 at 2019 by YAMILETH SULLIVAN RN PATIENT HAS G TUBE. G TUBE HAS NO RESIDUAL AND IS PATENT AND INTACT. HAS BEEN FLUSHED. OK TO USE FOR MEDS PER ORDER.
[2018-03-09 20:00] VITALS: BP 117/63
--- NOTE | 2018-03-09 20:09 | NUR ---
INSTRUMENT REPAIR SUPERVISOR NOTES: HEPARIN HELD PER MD ORDER AND FOR POSSIBLE GT REPLACEMENT TOMORROW.
--- NOTE | 2018-03-09 21:09 | NUR ---
BIOCHEMICAL DEVELOPMENT ENGINEER NOTES: PT APPEARS RESTLESS AND EVEN WITH BILATERAL SOFT WRIST RESTRAINTS KEEPS MOVING AND ATTEMPTING TO PULL OUT TUBINGS. PT WAS ADMINISTERED ATIVAN IV. WILL CONTINUE TO MONITOR.
[2018-03-10] VITALS: BP 100/58
[2018-03-10] MEDS: IPRATROPIUM NEB FS 0.5 MG/2.5 ML AMPUL.NEB IH SCH ×4 (02:08→20:24)
[2018-03-10] MEDS: ALBUTEROL FS 2.5 MG/0.5 ML VIAL.NEB NEB SCH ×4 (02:08→20:24)
[2018-03-10] MEDS: IV D5/0.45 NACL 1,000 ML IV PRN (03:55)
[2018-03-10 04:00] VITALS: BP 101/50
[2018-03-10] MEDS: BLOOD SUGAR DIAGNOSTIC 1 EACH STRIP IN SCH ×4 (05:28→23:59)
[2018-03-10] MEDS ORDERED: AMIKACIN 400 MG in IV NS 0.9% 100 ML IV PRN (06:00)
--- NOTE | 2018-03-10 06:20 | NUR ---
COMPOSITION WORKER NOTES: CALLED DR'S OFFICE ; LEFT A VOICEMAIL IN REGARDS TO PT HAVING AN IV ON R FOOT AND PT BEING DIABETIC. AWAITING FOR CALL BACK.
--- NOTE | 2018-03-10 06:49 | NUR ---
MANAGER FILE CLOSING NOTES: ALL NEEDS WERE ATTENDED AND ANTICIPATED FOR. PT KEPT CLEAN, DRY, AND COMFORTABLE. PT ASLEEP AT THIS TIME. PT HAS BILATERAL SOFT WRIST RESTRAINTS. 2 HOUR CHECKS PERFORMED. PT HAS IV ON R WRIST AND IS BEING INFUSED WITH IV D 5 1/2 NS AT 30CC/HR. PT HAS G TUBE AND IS CLAMPED. PT ON MECHANICAL VENT AND SETTINGS REMAIN THE SAME. PT ALSO HAS IV ON R FOOT AND IS PATENT AND INTACT. HD CATH IN L FEMORAL AREA INTACT. PT TURNED AND REPOSITIONED ACCORDINGLY. PT SUCTIONED PRN. CALL LIGHT WITHIN PT'S REACH. BED ALARM ACTIVATED. PT ON TELE BOX AND READING SHOWS SR 80S. WILL ENDORSE TO AM NURSE FOR ALMA ROSA.
--- NOTE | 2018-03-10 07:30 | NUR ---
NETWORK OPERATIONS CENTER TECHNICIAN INITIAL NOTES RECEIVED PATIENT SLEEPING IN BED, EASY TO AROUSE, AOX1, CAN MOUTH WORDS, MECHANICAL VENTILATOR SETTINGS ORDERED, SATURATING 100% O2, ON TELE MONITORING 80 SR, BILATERAL WRIST RESTRAINTS, CHECKED PER PROTOCOL, HD CATHETER L FEMORAL, INTACT, IV R WRIST 20G, CLEAN AND PATENT, BED IN LOW AND LOCKED POSITION, CALL LIGHT WITHIN REACH, WILL CONTINUE TO MONITOR, ISOLATION PRECAUTIONS OBSERVED.
[2018-03-10 07:46] LABS: MAGNESIUM 2.8 mg/dL (1.8-2.4); PHOSPHORUS 5.9 mg/dL (2.5-4.9); POTASSIUM 4.1 mmol/L (3.5-5.1)
[2018-03-10 07:47] LABS: CREATININE 8.8 mg/dL (0.6-1.3)
[2018-03-10 07:48] LABS: BASOPHILS % (AUTO) 0.3 % (0.0-2.0); EOSINOPHILS % (AUTO) 2.2 % (0.0-6.0); HEMATOCRIT 31 % (33-45); HEMOGLOBIN 9.4 g/dL (11.5-14.8); LYMPHOCYTES # (AUTO) 0.9 /CMM (0.8-4.8); LYMPHOCYTES % (AUTO) 9.3 % (20.0-44.0); MEAN CORPUSCULAR HEMOGLOBIN 28 PG (26.0-33.0); MEAN CORPUSCULAR HGB CONC 30 g/dl (31.0-36.0); MEAN CORPUSCULAR VOLUME 94 fL (82-100); MONOCYTES % (AUTO) 10.5 % (2.0-12.0); NEUTROPHILS # (AUTO) 7.6 /CMM (1.8-8.9); NEUTROPHILS % (AUTO) 77.7 % (43.0-81.0); PLATELET COUNT (AUTO) 284 /CMM (150-450); RDW COEFFICIENT OF VARIATION 22.8 (11.5-15.0); WHITE BLOOD COUNT (AUTO) 9.8 K/uL (4.3-11.0)
[2018-03-10 08:00] VITALS: BP 98/48
--- NOTE | 2018-03-10 08:04 | NUR ---
RT PATIENT RECEIVED W PORTEX # 8 TRACH AND ON A [facility] VENT. SETTINGS ARE NOTED. VENT ALARMS ARE ON AND AUDIBLE W VENT PLUGGED INTO RED OUTLET. MATERIALS RESEARCH ENGINEER CUFF PRESSURE NOTED. PT IS AWAKE AND ALERT W NO SIGNS OF RESPIRATORY DISTRESS @ THIS TIME. SMALL AMNT OF THIN WHITE SECRETIONS OBSERVED. WILL CONTINUE TO MONITOR. Addendum: 03/10/18 at 0807 by ASIF LEVY RT Amended: Links added.
[2018-03-10] MEDS: LEVOTHYROXINE SODIUM 75 MCG TABLET GT SCH (08:57)
[2018-03-10] MEDS: LEVETIRACETAM SOL (5 ML) 100 MG/ML UDC GT SCH ×2 (08:57→21:33)
[2018-03-10] MEDS: DOCUSATE SODIUM LIQ 100 MG/10 ML UDC GT SCH ×2 (08:57→17:35)
[2018-03-10] MEDS: ACIDOPHILUS/BULGARICUS 1 EACH TAB.CHEW GT SCH ×2 (08:57→21:34)
[2018-03-10] MEDS: Z GUARD REMEDY 2 OZ OINT TP SCH (08:58)
[2018-03-10] MEDS: PROSOURCE / PROSTAT (PYXIS) 30 ML UDC GT SCH (08:58)
[2018-03-10] MEDS: HEPARIN SODIUM, PORCINE 5000 UNITS/1 ML VIAL SQ SCH ×2 (08:58→21:34)
[2018-03-10] MEDS: CHOLECALCIFEROL 1,000 UNIT TABLET (VIT D3) GT SCH (08:58)
[2018-03-10] MEDS: VIT B CMPLX 3/FA/VIT C/BIOTIN 1 TAB TABLET GT SCH (08:58)
[2018-03-10] MEDS: AMLODIPINE BESYLATE 10 MG TABLET GT SCH (10:03)
[2018-03-10] MEDS: PANTOPRAZOLE 40 MG/PACK PACK GT SCH (12:06)
--- NOTE | 2018-03-10 13:58 | NUR ---
JOB PRINTER APPRENTICE NOTES PATIENT IS RECEIVING HD AT THIS TIME, SYSTOLIC DROPPED TO 80s ALBUMIN ORDERED AND BEING GIVEN AT THIS TIME. WILL CONTINUE TO MONITOR.
[2018-03-10] MEDS ORDERED: ALBUMIN 25% 25 GM in PREMIX 1 EA IV PRN (14:00)
[2018-03-10 16:00] VITALS: BP 107/52
--- NOTE | 2018-03-10 18:36 | NUR ---
YARD SPECIALIST END NOTES PATIENT RESTING IN BED, SUCTIONED, HOB ELEVATED, TURNED AND REPOSITIONED, ALL NEEDS ADDRESSED, WILL ENDORSE TO MACHINE REPAIR PERSON FOR CONTINUITY OF CARE.
--- NOTE | 2018-03-10 19:35 | NUR ---
TELE/RN NOTES RECEIVED PT. LYING IN BED. PT. IS VENT/TRACH DEPENDENT. AWAKE, ALERT AND ORIENTED TO SELF, NON-VERBAL AND MOUTHS WORDS. BREATHING EVEN AND UNLABORED. NO SOB, RESPIRATORY DISTRESS OR S/S OF PAIN NOTED AT THIS TIME. PT. WITH EXTERNAL MICROSOFT EXCHANGE ADMINISTRATOR PRESENT AND INTACT, CURRENT RHYTHM = SINUS RHYTHM HR 94. PT. WITH RIGHT WRIST 20 GAUGE PERIPHERAL IV PRESENT, PATENT AND INTACT ADMINISTERING TO PT. D5 1/2 NS @ 30ML/HR. PT. WITH LEFT FEMORAL HD CATH PRESENT AND INTACT. PT. WITH BILATERAL SOFT WRIST RESTRAINTS PRESENT AND INTACT. CIRCULATION CHECK PERFORMED. ISOLATION PRECAUTIONS IMPLEMENTED AND IN PLACE. BED LOCKED AND IN LOWEST POSITION, SIDE RAILS UP X3, BED ALARM ON, WILL CONTINUE TO MONITOR.
[2018-03-10] MEDS: MUPIROCIN OINT 2% 22 GM TUBE SCH (21:34)
[2018-03-11] VITALS: BP 98/59
[2018-03-11] MEDS: ALBUTEROL FS 2.5 MG/0.5 ML VIAL.NEB NEB SCH ×4 (01:01→19:20)
[2018-03-11] MEDS: IPRATROPIUM NEB FS 0.5 MG/2.5 ML AMPUL.NEB IH SCH ×4 (01:01→19:21)
--- NOTE | 2018-03-11 01:15 | NUR ---
PT RCMARSH'D ON MECHANICAL VENT WITH CHARTED SETTINGS. SX DONE. PT TRACH PATENT AND SECURE. AMBU BAG AT BEDSIDE. VENT PLUGGED INTO RED OUTLET. ALARMS ARE ON AND AUDIBLE. WILL CONTINUE TO MONITOR. Addendum: 03/11/18 at 0116 by TOO CAMARILLO RT Amended: Links added.
[2018-03-11 04:00] VITALS: BP 103/54
--- NOTE | 2018-03-11 05:50 | NUR ---
TELE/RN NOTES PT. 0600 ACCUCHECK RESULTED AT 56 MG/DL. REPEATED ACCUCHECK AND RESULTED AT 59MG/DL. ADMINISTERED TO PT. D50 PER PROTOCOL. PT. IS AWAKE AND ALERT TO SELF. WILL CONTINUE TO MONITOR.
[2018-03-11] MEDS: BLOOD SUGAR DIAGNOSTIC 1 EACH STRIP IN SCH ×3 (05:58→17:25)
[2018-03-11] MEDS: DEXTROSE 50%-WATER 50 ML DISP.SYRIN IV PRN (05:58)
--- NOTE | 2018-03-11 06:40 | NUR ---
TELE/RN NOTES RECHECKED PT. BLOOD SUGAR, RESULTED AT 135 MG/DL. PT. IS AWAKE AND ALERT TO SELF. BREATHING EVEN AND UNLABORED. WILL CONTINUE TO MONITOR.
--- NOTE | 2018-03-11 07:00 | NUR ---
TELE/RN NOTES PT. IS LYING IN BED. PT. IS VENT/TRACH DEPENDENT. AWAKE, ALERT AND ORIENTED TO SELF, NON-VERBAL. BREATHING EVEN AND UNLABORED. NO SOB, RESPIRATORY DISTRESS OR S/S OF PAIN NOTED AT THIS TIME. PT. WITH EXTERNAL SHOP LABORER PRESENT AND INTACT, CURRENT RHYTHM = SINUS RHYTHM HR 95. PT. WITH RIGHT WRIST 20 GAUGE PERIPHERAL IV PRESENT, PATENT AND INTACT ADMINISTERING TO PT. D5 1/2 NS @ 30ML/HR. PT. WITH LEFT FEMORAL HD CATH PRESENT AND INTACT. PT. WITH RIGHT FOOT IV SALINE LOCK PRESENT, PATENT AND INTACT. PT. WITH BILATERAL SOFT WRIST RESTRAINTS PRESENT AND INTACT. CIRCULATION CHECK PERFORMED. ALL PT. NEEDS MET. PT. OFFLOADED, TURNED AND REPOSITIONED Q2H AND NEEDED. BED LOCKED AND IN LOWEST POSITION, SIDE RAILS UP X3, BED ALARM ON, WILL ENDORSE TO DAYSHIFT NURSE FOR CONTINUITY OF CARE.
--- NOTE | 2018-03-11 07:15 | NUR ---
THEATER USHER OPENING NOTE RECEIVED PATIENT IN BED. ALERT DISORIENTED, NON-VERBAL. PATIENT WITH TRACH AND MECHANICAL VENTILATION. RESPIRATIONS EVEN AND UNLABORED. IN NO APPARENT DISTRESS OR DISCOMFORT AT THIS TIME. PATIENT ON TELE MONITORING WITH SR AND HR OF 94. LEFT FEMORAL HD CATH IN PLACE, PATENT AND INTACT. PATIENT IS INCONTINENT. RIGHT WRIST 20G IVC WITH FLUIDS RUNNING AT 30ML/HR. NO SIGN OF INFILTRATION. PATIENT WITH G-TUBE IN PLACE, NO FEEDING ORDERED AT THIS TIME. TO BE REPLACED DUE TO MALFUNCTION. PATIENT WITH BILATERAL SOFT WRIST RESTRAINTS DUE TO SEVERAL ATTEMPTS TO PULL OUT LINES AND TUBES. KEPT CLEAN AND COMFORTABLE, SAFETY MEASURES IN PLACE, BED IN LOW LOCKED POSITION, SIDE RAILS UP X2, CALL LIGHT WITHIN EASY REACH. WILL CONTINUE TO MONITOR.
[2018-03-11 07:29] LABS: BASOPHILS % (AUTO) 0.2 % (0.0-2.0); EOSINOPHILS % (AUTO) 2.2 % (0.0-6.0); HEMATOCRIT 28 % (33-45); HEMOGLOBIN 8.9 g/dL (11.5-14.8); LYMPHOCYTES # (AUTO) 0.9 /CMM (0.8-4.8); LYMPHOCYTES % (AUTO) 8.4 % (20.0-44.0); MEAN CORPUSCULAR HEMOGLOBIN 29 PG (26.0-33.0); MEAN CORPUSCULAR HGB CONC 32 g/dl (31.0-36.0); MEAN CORPUSCULAR VOLUME 93 fL (82-100); MONOCYTES # (AUTO) 1.2 /CMM (0.1-1.30); MONOCYTES % (AUTO) 11.8 % (2.0-12.0); NEUTROPHILS # (AUTO) 7.9 /CMM (1.8-8.9); NEUTROPHILS % (AUTO) 77.4 % (43.0-81.0); PLATELET COUNT (AUTO) 284 /CMM (150-450); RDW COEFFICIENT OF VARIATION 23.6 (11.5-15.0); RED BLOOD CELL COUNT(AUTO) 3.02 MIL/uL (4.0-5.2); WHITE BLOOD COUNT (AUTO) 10.2 K/uL (4.3-11.0)
[2018-03-11 07:46] LABS: CALCIUM, SERUM 8.8 mg/dL (8.5-10.1); CREATININE 7.2 mg/dL (0.6-1.3); MAGNESIUM 2.4 mg/dL (1.8-2.4); PHOSPHORUS 4.1 mg/dL (2.5-4.9); POTASSIUM 3.9 mmol/L (3.5-5.1)
[2018-03-11 08:00] VITALS: BP 106/83
[2018-03-11] MEDS: LEVETIRACETAM SOL (5 ML) 100 MG/ML UDC GT SCH ×2 (09:25→21:44)
[2018-03-11] MEDS: CHOLECALCIFEROL 1,000 UNIT TABLET (VIT D3) GT SCH (09:25)
[2018-03-11] MEDS: DOCUSATE SODIUM LIQ 100 MG/10 ML UDC GT SCH ×2 (09:25→16:46)
[2018-03-11] MEDS: ACIDOPHILUS/BULGARICUS 1 EACH TAB.CHEW GT SCH ×2 (09:25→21:44)
[2018-03-11] MEDS: VIT B CMPLX 3/FA/VIT C/BIOTIN 1 TAB TABLET GT SCH (09:25)
[2018-03-11] MEDS: PROSOURCE / PROSTAT (PYXIS) 30 ML UDC GT SCH (09:28)
[2018-03-11] MEDS: LEVOTHYROXINE SODIUM 75 MCG TABLET GT SCH (09:34)
[2018-03-11] MEDS: HEPARIN SODIUM, PORCINE 5000 UNITS/1 ML VIAL SQ SCH ×2 (09:36→22:05)
[2018-03-11] MEDS: MUPIROCIN OINT 2% 22 GM TUBE SCH ×2 (09:39→21:44)
[2018-03-11] MEDS: Z GUARD REMEDY 2 OZ OINT TP SCH (09:39)
[2018-03-11] MEDS: AMLODIPINE BESYLATE 10 MG TABLET GT SCH (11:00)
[2018-03-11] MEDS: PANTOPRAZOLE 40 MG/PACK PACK GT SCH (11:16)
--- NOTE | 2018-03-11 11:17 | NUR ---
NORVASC AND PROTONIX WERE HELD DUE TO PATIENT NOT TOLERATING FLUID FLASHED THROUGH G-TUBE. VITAL SIGNS STABLE, MD AWARE. WILL CONTINUE TO MONITOR.
[2018-03-11 12:00] VITALS: BP 109/71
--- NOTE | 2018-03-11 12:28 | NUR ---
PATIENT'S BLOOD GLUCOSE IS 60. ADMINISTERED ORANGE JUICE VIA G-TUBE. WILL REASSESS AND CONTINUE TO MONITOR.
[2018-03-11 16:00] VITALS: BP 112/56
[2018-03-11] MEDS: LORAZEPAM INJ 2 MG/ML VIAL IV PRN (17:22)
--- NOTE | 2018-03-11 17:24 | NUR ---
RT NOTE PATIENT WAS RECEIVED ON CONTINUOUS VENT SUPPORT ON NOTED VENT SETTINGS .B/S RHONCHI, SUCTION WITH A MODERATE AMOUNT OF THICK PALE YELLOWISH SECRETIONS . ALARMS ON AND AUDIBLE. VENT PLUGGED INTO RED OUTLET,AMBUBAG ,SPARE TRACH AT BEDSIDE. PATIENT STABLE AND TOLERATED CURRENT VENT SETTINGS.WILL CONTINUE TO MONITOR. Addendum: 03/11/18 at 1731 by SIL RIDER RT Amended: Links added.
--- NOTE | 2018-03-11 18:24 | NUR ---
CORRECTIONAL SUPPLY SUPERVISOR CLOSING NOTE PATIENT IN BED. ALERT DISORIENTED, NON-VERBAL. PATIENT WITH TRACH AND MECHANICAL VENTILATION. RESPIRATIONS EVEN AND UNLABORED. IN NO APPARENT DISTRESS OR DISCOMFORT AT THIS TIME. PATIENT ON TELE MONITORING WITH SR AND HR OF 92. LEFT FEMORAL HD CATH IN PLACE, PATENT AND INTACT. PATIENT IS INCONTINENT. RIGHT WRIST 20G IVC WITH FLUIDS RUNNING AT 30ML/HR. NO SIGN OF INFILTRATION. PATIENT WITH G-TUBE IN PLACE, NO FEEDING ORDERED AT THIS TIME. TO BE REPLACED DUE TO MALFUNCTION. PATIENT WITH BILATERAL SOFT WRIST RESTRAINTS DUE TO SEVERAL ATTEMPTS TO PULL OUT LINES AND TUBES. RELEASED, REASSESSED THE CIRCULATION PER PROTOCOL. ALL NEEDS ATTENDED, KEPT CLEAN AND COMFORTABLE, SAFETY MEASURES IN PLACE, BED IN LOW LOCKED POSITION, SIDE RAILS UP X3, CALL LIGHT WITHIN EASY REACH. WILL ENDORSE TO PM NURSE FOR ALMA ROSA.
--- NOTE | 2018-03-11 19:35 | NUR ---
MEDICAL RECEPTION SPECIALIST OPENING NOTE RECEIVED PATIENT IN BED. A & O X1, NON VERBAL, MOUTH WORDS. PATIENT WITH TRACH AND MECHANICAL VENTILATION. RESPIRATIONS EVEN AND UNLABORED. IN NO APPARENT DISTRESS OR DISCOMFORT AT THIS TIME. PATIENT ON TELE MONITORING WITH SR AND HR OF 83 . LEFT FEMORAL HD CATH IN PLACE, PATENT AND INTACT. INCONTINENT/ANURIC. RIGHT WRIST 20G IVF, RUNNING AT 30ML/HR. NO SIGN OF INFILTRATION. PATIENT WITH G-TUBE IN PLACE, NO FEEDING ORDERED AT THIS TIME. PATIENT WITH BILATERAL SOFT WRIST RESTRAINTS DUE TO SEVERAL ATTEMPTS TO PULL OUT LINES AND TUBES. KEPT CLEAN AND COMFORTABLE, SAFETY MEASURES IN PLACE, BED IN LOW LOCKED POSITION, SIDE RAILS UP X 2, CALL LIGHT WITHIN EASY REACH. WILL CONTINUE TO MONITOR CLOSELY.
[2018-03-11 19:50] VITALS: BP 95/50
[2018-03-12] VITALS (10 sets, daily range): BP systolic 82–102; BP diastolic 41–60
[2018-03-12] MEDS: BLOOD SUGAR DIAGNOSTIC 1 EACH STRIP IN SCH ×5 (00:10→23:46)
[2018-03-12] MEDS: ALBUTEROL FS 2.5 MG/0.5 ML VIAL.NEB NEB SCH ×4 (01:24→19:47)
[2018-03-12] MEDS: IPRATROPIUM NEB FS 0.5 MG/2.5 ML AMPUL.NEB IH SCH ×4 (01:24→19:47)
[2018-03-12] MEDS: ACETAMINOPHEN 650 MG/20.3 ML UDC GT PRN (01:36)
--- NOTE | 2018-03-12 01:36 | NUR ---
PRN TYLENOL GIVEN PT NOTED TO BE RESTLESS WITH FACIAL GRIMACING DURING ADL CARE, TURNING & REPOSITIONING. PRN TYLENOL GIVEN ORDERED. WILL REASSESS FOR EFFECTIVENESS.
--- NOTE | 2018-03-12 02:26 | NUR ---
IV SITE CHANGED RIGHT HAND IV SITE NOTED TO BE INFILTRATED, REMOVED IV CATH, PRESSURE DRESSING APPLIED, ELEVATED THE EXTREMITY. NEW IV CATH INSERTED TO LEFT HAND, G 22 WITH GOOD BLOOD RETURN, PT NOTED TO BE CALM/RELAXED. PRN TYLENOL WAS GIVEN EARLIER, NOTED TO BE EFFECTIVE. NO ALMA ROSA NOTED. WILL MONITOR CLOSELY.
[2018-03-12] MEDS: MIDODRINE HCL (5MG) 5 MG TABLET GT PRN (04:36)
--- NOTE | 2018-03-12 04:36 | NUR ---
PRN MIDODRINE GIVEN PT'S SBP NOTED TO BE 90/51,80,18,98.1,100%. PRN MIDODRINE GIVE ORDERED. WILL REASSESS THE PT FOR EFFECTIVENESS.
[2018-03-12 07:06] LABS: EOSINOPHILS % (AUTO) 2.2 % (0.0-6.0); HEMATOCRIT 27 % (33-45); HEMOGLOBIN 8.6 g/dL (11.5-14.8); LYMPHOCYTES # (AUTO) 0.8 /CMM (0.8-4.8); LYMPHOCYTES % (AUTO) 8.1 % (20.0-44.0); MEAN CORPUSCULAR HEMOGLOBIN 29 PG (26.0-33.0); MEAN CORPUSCULAR HGB CONC 32 g/dl (31.0-36.0); MEAN CORPUSCULAR VOLUME 93 fL (82-100); MONOCYTES # (AUTO) 1.1 /CMM (0.1-1.30); MONOCYTES % (AUTO) 10.2 % (2.0-12.0); NEUTROPHILS # (AUTO) 8.3 /CMM (1.8-8.9); NEUTROPHILS % (AUTO) 79.5 % (43.0-81.0); PLATELET COUNT (AUTO) 288 /CMM (150-450); RDW COEFFICIENT OF VARIATION 23.7 (11.5-15.0); RED BLOOD CELL COUNT(AUTO) 2.93 MIL/uL (4.0-5.2); WHITE BLOOD COUNT (AUTO) 10.4 K/uL (4.3-11.0)
--- NOTE | 2018-03-12 07:06 | NUR ---
CHILD NEUROLOGIST CLOSING NOTE PT RESTING IN BED. A & O X 1, NON VERBAL, MOUTH WORDS. PT WITH TRACH AND MECHANICAL VENTILATION. RESPIRATIONS EVEN AND UNLABORED. IN NO APPARENT DISTRESS OR DISCOMFORT AT THIS TIME. PATIENT ON TELE MONITORING WITH SR AND HR OF 77. VSS. LEFT FEMORAL HD CATH IN PLACE, PATENT AND INTACT. INCONTINENT/ANURIC. IV ACCESS TO LEFT HAND, INTACT PATENT, RUNNING AT 30ML/HR. NO SIGN OF INFILTRATION. PATIENT WITH G-TUBE IN PLACE, NO FEEDING ORDERED AT THIS TIME. PATIENT WITH BILATERAL SOFT WRIST RESTRAINTS DUE TO SEVERAL ATTEMPTS TO PULL OUT LINES AND TUBES. KEPT CLEAN AND COMFORTABLE, SAFETY MEASURES IN PLACE, BED IN LOW LOCKED POSITION, SIDE RAILS UP X 2, CALL LIGHT WITHIN EASY REACH. WILL ENDORSE TO AM RN FOR CONTINUITY OF CARE.
--- NOTE | 2018-03-12 07:20 | NUR ---
HIGH SCHOOL FOREIGN LANGUAGE TEACHER OPENING NOTE RECEIVED PATIENT IN BED. SLEEPING, AROUSED WITH PHYSICAL STIMULI, NON-VERBAL. PATIENT WITH TRACH AND MECHANICAL VENTILATION. RESPIRATIONS EVEN AND UNLABORED. IN NO APPARENT DISTRESS OR DISCOMFORT AT THIS TIME. PATIENT ON TELE MONITORING. LEFT FEMORAL HD CATH IN PLACE, INTACT. PATIENT IS INCONTINENT. LEFT LAND 22G IVC, WITH FLUIDS RUNNING AT 30ML/HR. NO SIGN OF INFILTRATION. PATIENT WITH G-TUBE IN PLACE, NO FEEDING ORDERED AT THIS TIME. TO BE REPLACED DUE TO MALFUNCTION. PATIENT WITH BILATERAL SOFT WRIST RESTRAINTS DUE TO SEVERAL ATTEMPTS TO PULL OUT LINES AND TUBES. KEPT CLEAN AND COMFORTABLE, SAFETY MEASURES IN PLACE, BED IN LOW LOCKED POSITION, SIDE RAILS UP X2, CALL LIGHT WITHIN EASY REACH. WILL CONTINUE TO MONITOR.
[2018-03-12 07:47] LABS: CALCIUM, SERUM 8.4 mg/dL (8.5-10.1); MAGNESIUM 2.4 mg/dL (1.8-2.4); PHOSPHORUS 4.3 mg/dL (2.5-4.9); POTASSIUM 3.7 mmol/L (3.5-5.1)
[2018-03-12 07:48] LABS: CREATININE 8.6 mg/dL (0.6-1.3)
--- NOTE | 2018-03-12 08:26 | NUR ---
RT RECD PT TRACHD INTACT AND SECURED ON MECH VENT LAST ORDERED SETTINGS. ALARMS ON AND AUBIBLE VENT PLUGGED IN RED OUTLET BAG AND MASK AT [facility]. SX THICK YPALE YELLOW SMALL SECRETIONS TX GIVEN LAST WELL NO ADVERSE REACTION NOTED ATT NO RESP DISTRESS WILL CONTINUE TO MONITOR
[2018-03-12] MEDS: LEVETIRACETAM SOL (5 ML) 100 MG/ML UDC GT SCH ×2 (08:28→21:19)
[2018-03-12] MEDS: ACIDOPHILUS/BULGARICUS 1 EACH TAB.CHEW GT SCH ×2 (08:28→21:19)
[2018-03-12] MEDS: DOCUSATE SODIUM LIQ 100 MG/10 ML UDC GT SCH ×2 (08:28→17:06)
[2018-03-12] MEDS: MUPIROCIN OINT 2% 22 GM TUBE SCH ×2 (08:29→21:20)
[2018-03-12] MEDS: PROSOURCE / PROSTAT (PYXIS) 30 ML UDC GT SCH (08:29)
[2018-03-12] MEDS: Z GUARD REMEDY 2 OZ OINT TP SCH (08:29)
[2018-03-12] MEDS: VIT B CMPLX 3/FA/VIT C/BIOTIN 1 TAB TABLET GT SCH (08:29)
[2018-03-12] MEDS: LEVOTHYROXINE SODIUM 75 MCG TABLET GT SCH (08:29)
[2018-03-12] MEDS: CHOLECALCIFEROL 1,000 UNIT TABLET (VIT D3) GT SCH (08:29)
[2018-03-12] MEDS: HEPARIN SODIUM, PORCINE 5000 UNITS/1 ML VIAL SQ SCH ×2 (09:00→22:02)
--- NOTE | 2018-03-12 09:50 | NUR ---
RECEIVED VERBAL ORDER FROM PILO BENITES TO HOLD THE HEPARIN FOR NOW FOR POSSIBLE SURGERY.
[2018-03-12] MEDS: AMLODIPINE BESYLATE 10 MG TABLET GT SCH (11:00)
--- NOTE | 2018-03-12 11:09 | NUR ---
RT VENT SETTINGS CHANGED FROM +5 PEEP TO NO PEEP PER MD ORDERS LAST WELL SP02 > 92% WILL CONTINUE TO MONITOR Addendum: 03/12/18 at 1113 by GREG BRAMBILA RT Amended: Links added.
[2018-03-12] MEDS: PANTOPRAZOLE 40 MG/PACK PACK GT SCH (11:17)
--- NOTE | 2018-03-12 11:41 | NUR ---
PATIENT'S BLOOD SUGAR 65. FLASSHED THE G-TUBE WITH 4OZ JUICE.
[2018-03-12] MEDS ORDERED: MORPHINE SULFATE INJ 2 MG/ML DISP.SYRIN IV PRN (16:00)
--- NOTE | 2018-03-12 17:26 | NUR ---
FLASHED G-TUBE WITH 4OZ ORANGE JUICE. BLOOD GLUCOSE CHECKED 10 MINUTES AFTER WITH READING OF 82.
--- NOTE | 2018-03-12 19:35 | NUR ---
LANDSCAPE NURSERYMAN OPENING NOTE RECEIVED PATIENT IN BED. A & O X 1, NON VERBAL, MOUTH WORDS. PATIENT WITH TRACH AND MECHANICAL VENTILATION. RESPIRATIONS EVEN AND UNLABORED. IN NO APPARENT DISTRESS OR DISCOMFORT AT THIS TIME. PATIENT ON TELE MONITORING WITH SR AND HR OF 74. LEFT FEMORAL HD CATH IN PLACE, PATENT AND INTACT. INCONTINENT/ANURIC. LEFT HAND G 22 WITH IVF, RUNNING AT 30ML/HR. NO SIGN OF INFILTRATION. PATIENT WITH G-TUBE IN PLACE, NO FEEDING ORDERED AT THIS TIME. ONLY MEDS TO BE GIVEN VIA GT. PATIENT WITH BILATERAL SOFT WRIST RESTRAINTS DUE TO SEVERAL ATTEMPTS TO PULL OUT LINES AND TUBES. KEPT CLEAN AND COMFORTABLE, SAFETY MEASURES IN PLACE, BED IN LOW LOCKED POSITION, SIDE RAILS UP X 2, CALL LIGHT WITHIN EASY REACH. WILL CONTINUE TO MONITOR CLOSELY.
--- NOTE | 2018-03-12 19:44 | NUR ---
SUPERVISOR PAINT CLOSING NOTE PATIENT IN BED. ALERT DISORIENTED, NON-VERBAL. PATIENT WITH TRACH AND MECHANICAL VENTILATION WITH SETTINGS ORDERED. RESPIRATIONS EVEN AND UNLABORED. IN NO APPARENT DISTRESS OR DISCOMFORT AT THIS TIME. PATIENT ON TELE MONITORING WITH SR AND HR OF 86. ON CONTINUOUS PULSOX MONITOR, SATURATING 99%. LEFT FEMORAL HD CATH IN PLACE, INTACT BUT NOT PATENT, UNABLE TO DIALYZE THE PATIENT TODAY. MD MADE AWARE. PATIENT IS INCONTINENT. LEFT HAND 22G IVC WITH FLUIDS RUNNING AT 30ML/HR. NO SIGN OF INFILTRATION. PATIENT WITH G-TUBE IN PLACE, NO FEEDING ORDERED AT THIS TIME. TO BE REPLACED DUE TO MALFUNCTION. PATIENT WITH BILATERAL SOFT WRIST RESTRAINTS DUE TO SEVERAL ATTEMPTS TO PULL OUT LINES AND TUBES. RELEASED, REASSESSED THE CIRCULATION PER PROTOCOL. ALL NEEDS ATTENDED, KEPT CLEAN AND COMFORTABLE, SAFETY MEASURES IN PLACE, BED IN LOW LOCKED POSITION, SIDE RAILS UP X3, CALL LIGHT WITHIN EASY REACH. WILL ENDORSE TO PM NURSE FOR ALMA ROSA.
[2018-03-12] MEDS: IV D5/0.45 NACL 1,000 ML IV PRN (21:22)
[2018-03-13] VITALS: BP 90/53
[2018-03-13] MEDS: IPRATROPIUM NEB FS 0.5 MG/2.5 ML AMPUL.NEB IH SCH ×4 (00:53→19:39)
[2018-03-13] MEDS: ALBUTEROL FS 2.5 MG/0.5 ML VIAL.NEB NEB SCH ×4 (00:53→19:39)
[2018-03-13] MEDS: MIDODRINE HCL (5MG) 5 MG TABLET GT PRN ×2 (02:15→16:16)
--- NOTE | 2018-03-13 02:15 | NUR ---
PRN MIDODRINE GIVEN PT'S SBP NOTED TO BE 90/57,102,20,98F,100%. PRN MIDODRINE GIVE ORDERED. WILL REASSESS THE PT FOR EFFECTIVENESS.
[2018-03-13] MEDS: ACETAMINOPHEN 650 MG/20.3 ML UDC GT PRN (02:16)
--- NOTE | 2018-03-13 02:16 | NUR ---
PRN TYLENOL GIVEN PT NOTED TO BE RESTLESS WITH FACIAL GRIMACING DURING ADL CARE, TURNING & REPOSITIONING. PRN TYLENOL GIVEN ORDERED. WILL REASSESS FOR EFFECTIVENESS.
[2018-03-13 04:00] VITALS: BP 97/52
[2018-03-13 04:06] VITALS: BP 97/52
[2018-03-13] MEDS: BLOOD SUGAR DIAGNOSTIC 1 EACH STRIP IN SCH ×4 (05:55→23:24)
--- NOTE | 2018-03-13 06:42 | NUR ---
TORCH STRAIGHTENER CLOSING NOTE PT RESTING IN BED. A & O X 1, NON VERBAL, MOUTH WORDS. PT WITH TRACH AND MECHANICAL VENTILATION. RESP EVEN AND UNLABORED. IN NO APPARENT DISTRESS OR DISCOMFORT AT THIS TIME. PATIENT ON TELE MONITORING WITH SR AND HR OF 88. VSS. LEFT FEMORAL HD CATH IN PLACE, PATENT AND DRESSING INTACT. INCONTINENT/ANURIC. IV ACCESS TO LEFT HAND, INTACT PATENT, RUNNING AT 30ML/HR. NO SIGN OF INFILTRATION. PATIENT WITH G-TUBE IN PLACE, NO FEEDING ORDERED AT THIS TIME. NPO. BREATHING TREATMENTS GIVEN BY RT ORDERED. SUCTIONED INTERMITTENTLY, PRN. PATIENT WITH BILATERAL SOFT WRIST RESTRAINTS DUE TO SEVERAL ATTEMPTS TO PULL OUT LINES AND TUBES. KEPT CLEAN AND COMFORTABLE, SAFETY MEASURES IN PLACE, BED IN LOW LOCKED POSITION, SIDE RAILS UP X 2, CALL LIGHT WITHIN EASY REACH. WILL ENDORSE TO AM RN FOR CONTINUITY OF CARE.
[2018-03-13 07:45] LABS: BASOPHILS % (AUTO) 0.3 % (0.0-2.0); EOSINOPHILS % (AUTO) 2.7 % (0.0-6.0); HEMATOCRIT 27 % (33-45); HEMOGLOBIN 8.5 g/dL (11.5-14.8); LYMPHOCYTES # (AUTO) 1.2 /CMM (0.8-4.8); LYMPHOCYTES % (AUTO) 10.1 % (20.0-44.0); MEAN CORPUSCULAR HEMOGLOBIN 29 PG (26.0-33.0); MEAN CORPUSCULAR HGB CONC 31 g/dl (31.0-36.0); MEAN CORPUSCULAR VOLUME 93 fL (82-100); MONOCYTES # (AUTO) 0.7 /CMM (0.1-1.30); MONOCYTES % (AUTO) 5.9 % (2.0-12.0); NEUTROPHILS # (AUTO) 9.2 /CMM (1.8-8.9); PLATELET COUNT (AUTO) 183 /CMM (150-450); RDW COEFFICIENT OF VARIATION 22.9 (11.5-15.0); RED BLOOD CELL COUNT(AUTO) 2.94 MIL/uL (4.0-5.2); WHITE BLOOD COUNT (AUTO) 11.4 K/uL (4.3-11.0)
[2018-03-13 08:00] VITALS: BP 92/45
--- NOTE | 2018-03-13 08:00 | NUR ---
Tele/RN - Assessment Patient awake, alert to self, no s/s of pain, no apparent distress noted, vent dependent with trache Portex 8 secured and intact, vent settings as follows: AC14, VT500, Fio2 40%, PEEP 5, tolerated well. Ambu bag/mask at bedside and vent alarms audible. Patient with bilateral soft wrist restraints in place to prevent pulling out life sustaining tubes. See restraint monitoring flowsheet. Tele shows SR with occasional PVCs. IVF D5 1/2 NS at 30 ml/hr infusing well on the left hand with no signs of infiltration. Tube feeding currently on hold. Consent for EGD/PEG obtained from son [place]pp[place]. Fall and aspiration precautions observed at all times. Patient repositioned q2h and as needed for comfort and circulation. Contact precautions maintained for MRSA nares. All needs attended and met. Will continue with current treatment plan.
--- NOTE | 2018-03-13 08:10 | NUR ---
TELEPHONE CONSENT OBTAINED FROM SON CALLED & SPOKE TO MC PAZ ( SON OF JACKSON PORTER ), INFORMED ABOUT THE PROCEDURE & OBTAINED CONSENT VIA TELEPHONE FOR PROCEDURE, BLOOD TRANSFUSION & ANESTHESIA. WITNESSED & SIGNED BY ANOTHER RN ELZA. SON ALSO WOULD LIKE TO DR. KENAN GUNN & WANT TO BE INFORMED BEFORE THE PROCEDURE. ENDORSED TO AM RN TO NOTIFY MD TO CALL THE SON & TO INFORM THE SON BEFORE THE PROCEDURE IS DONE.
[2018-03-13 08:11] LABS: CALCIUM, SERUM 8.8 mg/dL (8.5-10.1); MAGNESIUM 2.5 mg/dL (1.8-2.4); PHOSPHORUS 4.7 mg/dL (2.5-4.9); POTASSIUM 4.2 mmol/L (3.5-5.1)
[2018-03-13] MEDS: DOCUSATE SODIUM LIQ 100 MG/10 ML UDC GT SCH ×2 (08:12→16:16)
[2018-03-13] MEDS: LEVOTHYROXINE SODIUM 75 MCG TABLET GT SCH (08:12)
[2018-03-13] MEDS: VIT B CMPLX 3/FA/VIT C/BIOTIN 1 TAB TABLET GT SCH (08:12)
[2018-03-13] MEDS: CHOLECALCIFEROL 1,000 UNIT TABLET (VIT D3) GT SCH (08:13)
[2018-03-13] MEDS: LEVETIRACETAM SOL (5 ML) 100 MG/ML UDC GT SCH ×2 (08:13→20:44)
[2018-03-13] MEDS: ACIDOPHILUS/BULGARICUS 1 EACH TAB.CHEW GT SCH ×2 (08:13→20:44)
[2018-03-13 08:14] LABS: CREATININE 9.1 mg/dL (0.6-1.3)
[2018-03-13] MEDS: HEPARIN SODIUM, PORCINE 5000 UNITS/1 ML VIAL SQ SCH ×2 (08:14→20:57)
[2018-03-13] MEDS: Z GUARD REMEDY 2 OZ OINT TP SCH (08:15)
[2018-03-13] MEDS: PROSOURCE / PROSTAT (PYXIS) 30 ML UDC GT SCH (08:20)
[2018-03-13] MEDS: MUPIROCIN OINT 2% 22 GM TUBE SCH ×2 (08:21→20:45)
[2018-03-13] MEDS: AMLODIPINE BESYLATE 10 MG TABLET GT SCH (11:00)
[2018-03-13] MEDS: PANTOPRAZOLE 40 MG/PACK PACK GT SCH (11:27)
[2018-03-13] MEDS: DEXTROSE 50%-WATER 50 ML DISP.SYRIN IV PRN (12:23)
--- NOTE | 2018-03-13 12:30 | NUR ---
M/S RN - Critical result Patient awake, no s/s of hypoglycemia seen, POC 60 mg/dL, D50 IVP given per protocol. Will recheck blood glucose within [address] Ortiz notified with no further orders. Will monitor closely.
--- NOTE | 2018-03-13 14:15 | NUR ---
Tele/RN - Md order Dr. Ortiz made aware that patient had several episodes of hypoglycemia, tube feeding on hold and is currently on D5 1/2 NS at 30 ml/hr. Per Md, increase IVF to 50 ml/hr.
--- NOTE | 2018-03-13 14:32 | NUR ---
PT RECEIVED ON [facility] VENT WITH FOLLOWING SETTINGS: AC 14, 500, 40%, PEEP 0. PT IS AWAKE AND ALERT. NO RESP DISTRESS NOTED. VENT IS PLUGGED INTO RED OUTLET. AMBU BAG IS AT HEAD OF BED. SX'D MOD THICK WHITE SECRETIONS. WILL CONT TO MONITOR PT. Addendum: 03/13/18 at 1434 by ALLAN DASH RT Amended: Links added.
[2018-03-13] MEDS: IV D5/0.45 NACL 1,000 ML IV PRN ×2 (15:45→23:42)
[2018-03-13 16:00] VITALS: BP 90/52
--- NOTE | 2018-03-13 17:30 | NUR ---
Tele/RN - Md order Telephone order received from Dr. Drew to obtain consent for hemodialysis catheter replacement, NPO after midnight, BMP in AM. Orders noted and carried out.
--- NOTE | 2018-03-13 17:40 | NUR ---
Tele/RN - Consent for HD catheter replacement Telephone consent obtained from Fahad Mcneil (son) [phone] for hemodialysis catheter replacement.
--- NOTE | 2018-03-13 18:27 | NUR ---
Tele/RN - Notes No new events seen, remain afebrile, without distress on the ventilator. Will continue with current medical management.
--- NOTE | 2018-03-13 19:40 | NUR ---
SIGN LANGUAGE TRANSLATOR NOTES CALLED AND SPOKE TO VASCULAR MD DR. WARNER REGARDING HEPARIN SCHEDULED ADMINISTRATION AT 2100, AND PATIENT IS SCHEDULED FOR HEMODIALYSIS CATHETER REPLACEMENT PROCEDURE IN AM. PER ADMINISTER HEPARIN ORDERED. OKAY TO GIVE. ORDER READ BACK TO MD TO ADMINISTER ORDERED.
--- NOTE | 2018-03-13 19:45 | NUR ---
SPACECRAFT SYSTEMS ENGINEER OPENING NOTES RECEIVED PATIENT IN BED AWAKE ALERT X1, NON VERBAL, NO APPARENT DISTRESS NOTED AT THIS TIME, NO FACIAL GRIMACING PRESENT UPON ASSESSMENT. VENT DEPENDENT TRACH PORTEX 8 SECURED AND INTACT. VENT SETTING AC 14,VT 500 FI02 40% PEEP 0, TOLERATING WELL. AMBU BAG, MASK AND SUCTION EQUIPMENT AT BEDSIDE. CONNECTED TO RED EMERGENCY PLUG.BILATERAL SOFT WRIST RESTRAINTS ORDERED IN PLACE TO PREVENT PULL OUT OF LIFE SUSTAINING TUBING, SKIN AND CIRCULATION ASSESSED NO CHANGE PRESENT. SACRAL SKIN REMAINS INTACT ZGUARD APPLIED FOR SKIN MANAGEMENT. PATIENT REPOSITIONED FOR COMFORT AND CIRCULATION. ON RELIEF WORKER WITH SR AND OCCASIONAL PVC'S AT 95, IV SITE TO LEFT HAND #22 G INTACT AND PATENT, D5 1/2 NS @ 50ML /HR RUNNING ORDERED. NO REDNESS NO INFILTRATION PRESENT, ALSO NOTED IV SL TO RIGHT ANKLE AREA. NO REDNESS NO INFILTRATION PRESENT, HEMODIALYSIS CATHETER TO LEFT UPPER THIGH IN PLACE WITH DRY INTACT DRESSING, PATIENT WILL BE NPO AT MIDNIGHT FOR HEMODIALYSIS CATHETER REPLACEMENT AND EGD PROCEDURE IN AM. NO S/S OH HYPOGLYCEMIA NOTED AT THIS TIME, WILL CONTINUE TO MONITOR FOR ANY CHANGES. ALL NEEDS ATTENDED PATIENT REMAINS COMFORTABLE.
--- NOTE | 2018-03-13 19:45 | NUR ---
METAL FLOORING INSTALLER NOTES NOTED DRY SKIN SCATTERED WITH SMALL DRY SCABS TO RIGHT SIDE OF HEAD, NO S/S OF INFECTION NO DRAINAGE DRY. APPEARS OLD AND RESOLVING
[2018-03-13 20:00] VITALS: BP 112/84
--- NOTE | 2018-03-13 22:56 | NUR ---
SOFTWARE QA MANAGER NOTES PATIENT REASSESSED CONTINUES TO REQUIRE BILATERAL SOFT WRIST RESTRAINTS TO PREVENT PULL OUT OF LIFE SUSTAINING MEDICAL TUBING, NEW ORDER OBTAINED AND CARRIED AND RENEWED.
--- NOTE | 2018-03-13 23:40 | NUR ---
ELECTRONIC DEVICE REPAIRER NOTES PATIENT BLOOD SUGAR NOTED AT 69 PATIENT IS CURRENTLY ON IV FLUIDS D5 1/2 NS AT 50ML/HR ORDERED PER MD.
[2018-03-14] VITALS (9 sets, daily range): BP systolic 78–111; BP diastolic 34–75
[2018-03-14] MEDS: ALBUTEROL FS 2.5 MG/0.5 ML VIAL.NEB NEB SCH ×4 (01:04→19:32)
[2018-03-14] MEDS: IPRATROPIUM NEB FS 0.5 MG/2.5 ML AMPUL.NEB IH SCH ×4 (01:04→19:32)
[2018-03-14] MEDS: BLOOD SUGAR DIAGNOSTIC 1 EACH STRIP IN SCH ×3 (05:14→17:45)
[2018-03-14] MEDS ORDERED: LIDOCAINE HCL/PF 1% 30 ML SDV ONE (06:36)
[2018-03-14] MEDS ORDERED: ANESTHESIA TRAY IN PYXIS 1 EA TRAY MC ONE (06:36)
[2018-03-14] MEDS ORDERED: HEPARIN SODIUM, PORCINE 1,000 UNIT/ML VIAL ONE (06:36)
[2018-03-14] MEDS ORDERED: FENTANYL PF 100MCG/2ML AMPUL ONE (07:03)
--- NOTE | 2018-03-14 07:12 | NUR ---
RN NOTES PT IS LAYING DOWN IN BED, RESTING COMFORTABLY. PT CONNECTED TO VENT, ALL SETTINGS ARE ACCURATE. SURGERY STAFF IN ROOM TO TAKE PT DOWN TO OR FOR PROCEDURE. NO SIGNS OF DISTRESS NOTED, SAFETY MEASURES ARE IN PLACE. WILL CONTINUE TO MONITOR ONCE PT BROUGHT BACK ONTO FLOOR POST-OP.
--- NOTE | 2018-03-14 07:18 | NUR ---
RN CLOSING NOTES PATIENT WAS AWAKE AND ALERT X 1, RESPIRATIONS EVEN AND UNLABORED WITH EQUAL RISE AND FALL OF CHEST, NO FACIAL GRIMACING PRESENT, NO DISTRESS PRESENT, GT INTACT, HD CATH TO LEFT THIGH REMAINS INTACT, DRESSING IS DRY. NO CHANGES OF CONDITION NOTED THROUGHOUT SHIFT, PATIENT REMAINED NPO FOR PROCEDURE, CONSENTS IN PLACE, PATIENT WAS PICKED UP FROM UNIT WITH SURGERY STAFF AND RT, PATIENT LEFT IN STABLE CONDITION.
[2018-03-14] MEDS: LEVOTHYROXINE SODIUM 75 MCG TABLET GT SCH (07:30)
[2018-03-14] MEDS ORDERED: EPHEDRINE SULFATE IV 50MG VIAL ONE (07:51)
[2018-03-14] MEDS: PROSOURCE / PROSTAT (PYXIS) 30 ML UDC GT SCH (08:10)
[2018-03-14] MEDS: CHOLECALCIFEROL 1,000 UNIT TABLET (VIT D3) GT SCH (08:10)
[2018-03-14] MEDS: LEVETIRACETAM SOL (5 ML) 100 MG/ML UDC GT SCH ×2 (08:10→21:55)
[2018-03-14] MEDS: DOCUSATE SODIUM LIQ 100 MG/10 ML UDC GT SCH ×2 (08:10→17:45)
[2018-03-14] MEDS: ACIDOPHILUS/BULGARICUS 1 EACH TAB.CHEW GT SCH ×2 (08:10→21:55)
[2018-03-14] MEDS: VIT B CMPLX 3/FA/VIT C/BIOTIN 1 TAB TABLET GT SCH (08:10)
[2018-03-14] MEDS: MUPIROCIN OINT 2% 22 GM TUBE SCH ×2 (08:55→21:58)
[2018-03-14] MEDS: Z GUARD REMEDY 2 OZ OINT TP SCH (08:56)
[2018-03-14] MEDS: HEPARIN SODIUM, PORCINE 5000 UNITS/1 ML VIAL SQ SCH ×2 (08:56→21:55)
--- NOTE | 2018-03-14 08:59 | NUR ---
RN NOTES AM HEPARIN DOSE HELD PRIOR TO SURGICAL PROCEDURE SCHEDULED.
[2018-03-14] MEDS: AMLODIPINE BESYLATE 10 MG TABLET GT SCH (10:36)
[2018-03-14] MEDS: PANTOPRAZOLE 40 MG/PACK PACK GT SCH (10:37)
[2018-03-14 10:44] LABS: EOSINOPHILS % (AUTO) 2.2 % (0.0-6.0); HEMATOCRIT 27 % (33-45); HEMOGLOBIN 8.4 g/dL (11.5-14.8); LYMPHOCYTES # (AUTO) 1.2 /CMM (0.8-4.8); LYMPHOCYTES % (AUTO) 10.2 % (20.0-44.0); MEAN CORPUSCULAR HEMOGLOBIN 29 PG (26.0-33.0); MEAN CORPUSCULAR HGB CONC 31 g/dl (31.0-36.0); MEAN CORPUSCULAR VOLUME 93 fL (82-100); MONOCYTES # (AUTO) 1.3 /CMM (0.1-1.30); MONOCYTES % (AUTO) 11.2 % (2.0-12.0); NEUTROPHILS % (AUTO) 76.4 % (43.0-81.0); PLATELET COUNT (AUTO) 337 /CMM (150-450); RDW COEFFICIENT OF VARIATION 22.5 (11.5-15.0); RED BLOOD CELL COUNT(AUTO) 2.88 MIL/uL (4.0-5.2); WHITE BLOOD COUNT (AUTO) 11.8 K/uL (4.3-11.0)
[2018-03-14] MEDS ORDERED: VANCOMYCIN 1 GM in IV D5W 250 ML IV ONE (11:00)
[2018-03-14] MEDS ORDERED: FEE PK DOSING 1 MIN EA MC ONE (11:11)
[2018-03-14 11:19] LABS: ALBUMIN 2.8 g/dL (3.4-5.0); BILIRUBIN,TOTAL 0.6 mg/dL (0.2-1.0); CALCIUM, SERUM 8.4 mg/dL (8.5-10.1); MAGNESIUM 2.3 mg/dL (1.8-2.4); PHOSPHORUS 5.3 mg/dL (2.5-4.9); POTASSIUM 4.1 mmol/L (3.5-5.1); TOTAL PROTEIN, SERUM 7.9 g/dL (6.4-8.2)
[2018-03-14 11:20] LABS: CREATININE 9.8 mg/dL (0.6-1.3)
[2018-03-14] MEDS ORDERED: NEPRO 1,000 ML BOTTLE GT PRN (13:00)
--- NOTE | 2018-03-14 18:54 | NUR ---
RN NOTES PT IS SITTING UP IN BED, SLEEPING COMFORTABLY. PT ON CONNECTED TO VENT, ALL SETTINGS ARE ACCURATE, RESPIRATIONS ARE EVEN AND UNLABORED, O2 SAT 97%. IV ON L HAND INTACT AND SL. G-TUBE IS IN PLACE AND PATENT, NO RESIDUAL NOTED. NEPRO FEEDING STARTED @ 20ML/HR, TO BE ADVANCED TO 50ML/HR TOLERATED. PT KEPT CLEAN AND DRY THROUGHOUT SHIFT AND PROVIDED WITH SKIN CARE NEEDED. PT POST HD CATH REPLACEMENT AND DIALYSIS, NO OUTPUT. NO SIGNS OF BLEEDING NOTED. 1800 ACCUCHECK 84, NO COVERAGE NEEDED. NO SIGNS OF DISTRESS NOTED. SAFETY MEASURES ARE IN PLACE, CALL LIGHT IS IN REACH. WILL ENDORSE TO TIME CYCLE OPERATOR RN FOR CONTINUITY OF CARE.
--- NOTE | 2018-03-14 19:20 | NUR ---
RN TRANSPORT NOTES RECEIVED PT IN BED, RESTING COMFORTABLY AT THIS TIME. AROUSES EASILY, A/O X 1 , ABLE TO MOUTH WORDS. ON TRACH WITH VENT , SUCTIONED PRN. ON SR 89 ON TELE MONITOR AT THIS TIME. NO DISTRESS, NO SOB NOTED. RESPIRATION IS EVEN AND UNLABORED. GT IS INTACT AND PATENT, GTF OF NEPRO @ 20 CC /HR LAST WELL. NO RESIDUAL NOTED. ASPIRATION PRECAUTION OBSERVED. NO HYPO/ HYPERGLYCEMIA NOTED. LEFT FEMORAL HD CATH INTACT AND PATENT, NO BLEEDING NOTED AT THIS TIME. NO S/S OF PAIN OR DISCOMFORT AT THIS TIME. ALL NEEDS ANTICIPATED AND ATTENDED, SAFETY PRECAUTIONS OBSERVED. WILL CONTINUE TO MONITOR.
[2018-03-15] VITALS: BP 118/66
[2018-03-15] MEDS: BLOOD SUGAR DIAGNOSTIC 1 EACH STRIP IN SCH ×4 (00:21→17:26)
[2018-03-15] MEDS: ALBUTEROL FS 2.5 MG/0.5 ML VIAL.NEB NEB SCH ×3 (00:51→13:44)
[2018-03-15] MEDS: IPRATROPIUM NEB FS 0.5 MG/2.5 ML AMPUL.NEB IH SCH ×3 (00:51→13:44)
[2018-03-15 04:00] VITALS: BP 127/90
--- NOTE | 2018-03-15 06:53 | NUR ---
bs : 101 at this time, pt on gtf nepro @ 35 cc //hr galilea well. no s/s of hypoglycemia noted. will cont to monitor.
--- NOTE | 2018-03-15 06:54 | NUR ---
SEWER REPAIRER NOTES PT IN BED, AWAKE, CALM AT THIS TIME. A/O X 1 , ABLE TO MOUTH WORDS. ON TRACH WITH VENT , SUCTIONED PRN. TRACH CARE RENDERED. ON SR 91 ON TELE MONITOR AT THIS TIME. NO DISTRESS, NO SOB NOTED. RESPIRATION IS EVEN AND UNLABORED. GT IS INTACT AND PATENT, GTF OF NEPRO @ 35 CC /HR LAST WELL. NO RESIDUAL NOTED. ASPIRATION PRECAUTION OBSERVED. NO HYPO/ HYPERGLYCEMIA NOTED. LEFT FEMORAL HD CATH INTACT AND PATENT, NO BLEEDING NOTED AT THIS TIME. NO S/S OF PAIN OR DISCOMFORT AT THIS TIME. ALL NEEDS ANTICIPATED AND ATTENDED, SAFETY PRECAUTIONS OBSERVED. WILL ENDORSE TO NEXT SHIFT FOR ALMA ROSA.
--- NOTE | 2018-03-15 07:40 | NUR ---
SENIOR PARALEGAL NOTES PATIENT RECEIVED RESTING INSIDE ROOM, SLEEPING, EASILY AROUSABLE THROUGH VERBAL AND TACTILE STIMULI. PATIENT ALERT AND ORIENTED TO SELF, ABLE TO MOUTH WORDS. ON TRACH WITH VENT AND TOLERATING WELL. NO ACUTE DISTRESS AT THIS TIME. ONGOING GTF TOLERATED. MAINTAINED ASPIRATION PRECAUTIONS, MAINTAINED HOB ELEVATION AT 45. BILATERAL SOFT WRIST RESTRAINTS IN PLACE. MAINTAINED ISOLATION PRECAUTIONS. WILL CONTINUE TO MONITOR. BED LOCKED AND IN LOW POSITION. BILATERAL UPPER SIDE RAILS UP AND LOCKED. CALL LIGHT WITHIN EASY REACH
[2018-03-15 07:49] LABS: EOSINOPHILS % (AUTO) 1.8 % (0.0-6.0); HEMATOCRIT 28 % (33-45); HEMOGLOBIN 8.4 g/dL (11.5-14.8); LYMPHOCYTES # (AUTO) 0.4 /CMM (0.8-4.8); LYMPHOCYTES % (AUTO) 5.1 % (20.0-44.0); MEAN CORPUSCULAR HEMOGLOBIN 28 PG (26.0-33.0); MEAN CORPUSCULAR HGB CONC 30 g/dl (31.0-36.0); MEAN CORPUSCULAR VOLUME 93 fL (82-100); MONOCYTES # (AUTO) 0.7 /CMM (0.1-1.30); MONOCYTES % (AUTO) 8.7 % (2.0-12.0); NEUTROPHILS # (AUTO) 7.1 /CMM (1.8-8.9); NEUTROPHILS % (AUTO) 84.4 % (43.0-81.0); PLATELET COUNT (AUTO) 281 /CMM (150-450); RDW COEFFICIENT OF VARIATION 22.8 (11.5-15.0); RED BLOOD CELL COUNT(AUTO) 2.99 MIL/uL (4.0-5.2); WHITE BLOOD COUNT (AUTO) 8.4 K/uL (4.3-11.0)
[2018-03-15 08:00] VITALS: BP 103/57
[2018-03-15] MEDS ORDERED: VANCOMYCIN 500 MG in IV D5W 100 ML IV PRN (08:00)
[2018-03-15 08:08] LABS: CALCIUM, SERUM 8.4 mg/dL (8.5-10.1); MAGNESIUM 2.2 mg/dL (1.8-2.4); PHOSPHORUS 4.4 mg/dL (2.5-4.9); POTASSIUM 3.9 mmol/L (3.5-5.1)
[2018-03-15] MEDS: CHOLECALCIFEROL 1,000 UNIT TABLET (VIT D3) GT SCH (08:22)
[2018-03-15] MEDS: VIT B CMPLX 3/FA/VIT C/BIOTIN 1 TAB TABLET GT SCH (08:22)
[2018-03-15] MEDS: ACIDOPHILUS/BULGARICUS 1 EACH TAB.CHEW GT SCH (08:22)
[2018-03-15] MEDS: LEVOTHYROXINE SODIUM 75 MCG TABLET GT SCH (08:22)
[2018-03-15] MEDS: DOCUSATE SODIUM LIQ 100 MG/10 ML UDC GT SCH ×2 (08:22→17:26)
[2018-03-15] MEDS: LEVETIRACETAM SOL (5 ML) 100 MG/ML UDC GT SCH (08:22)
[2018-03-15] MEDS: PROSOURCE / PROSTAT (PYXIS) 30 ML UDC GT SCH (08:22)
[2018-03-15] MEDS: MUPIROCIN OINT 2% 22 GM TUBE SCH (08:23)
[2018-03-15] MEDS: Z GUARD REMEDY 2 OZ OINT TP SCH (08:23)
[2018-03-15] MEDS: HEPARIN SODIUM, PORCINE 5000 UNITS/1 ML VIAL SQ SCH (08:24)
[2018-03-15] MEDS: AMLODIPINE BESYLATE 10 MG TABLET GT SCH (10:25)
[2018-03-15] MEDS ORDERED: MUPI22OI7 (11:56)
[2018-03-15] MEDS: PANTOPRAZOLE 40 MG/PACK PACK GT SCH (12:02)
--- NOTE | 2018-03-15 13:36 | NUR ---
APPLICATION TRAINER NOTES PATIENT SEEN AND EXAMINED BY DR. SUAZO, WITH ORDERS TO DC BACK TO [facility]. ORDER NOTED AND CARRIED OUT. SPOKE WITH HOLISTIC NUTRITIONIST AND OBTAINED A HEAD OF COMMISSION DEPARTMENT TIME AROUND 1700. PER CASE MANAGEMENT, SON IS AWARE OF DISCHARGE AND WILL BE PRESENT AT FACILITY AT TIME FOR TRANSFER. NOTED FROM PATIENT'S DC MEDICATIONS THAT PATIENT IS TO CONTINUE AMIKACIN IV DIRECTED. PLACED CALL TO DR. SUAZO AND LEFT MESSAGE, AWAITING FOR CALL BACK TO VERIFY MEDICATION ORDER. PLACED CALL TO [facility] AND SPOKE WITH KENRICK NELSON. GAVE REPORT, MADE AWARE OF AMIKACIN ORDER. PER MD KENRICK FOLLOWING PATIENT AT [facility] IS DR. TINOCO AND THEY WILL FOLLOW-UP WITH HIM REGARDING CONTINUATION OF MEDICATION AND DOSAGE. WILL CONTINUE TO MONITOR.
--- NOTE | 2018-03-15 13:45 | NUR ---
PIPE FITTINGS MOLDER NOTES PLACED CALL TO [facility] ([phone]) AND SPOKE WITH AYDEE RICHARDS MESSAGE FOR DR. SUAZO. AWAITING FOR CALL BACK
--- NOTE | 2018-03-15 13:50 | NUR ---
TEXTILE FINISHER NOTES RECEIVED CALL BACK FROM DR. SUAZO, VERIFIED ANTIBIOTIC ORDER. PER DR. SUAZO, DC AMIKACIN AND DC VANCOMYCIN ORDERS ON TRANSFER TO [facility]. NOTED AND CARRIED OUT. PLACED CALL TO [facility], SPOKE WITH KENRICK NELSON AND MADE AWARE. WILL CONTINUE TO MONITOR
--- NOTE | 2018-03-15 14:41 | NUR ---
RT RECD PT TRACHD INTACT AND SECURED ON MECH VENT LAST ORDERED SETTINGS. ALARMS ON AND AUBIBLE VENT PLUGGED IN RED OUTLET BAG AND MASK AT [facility]. SX THICK PALE YELLOW SMALL SECRETIONS TX GIVEN, LAST WELL NO ADVERSE REACTION NOTED ATT NO RESP DISTRESS WILL CONTINUE TO MONITOR
[2018-03-15 17:42] VITALS: BP 91/46
[2018-03-15] MEDS: MIDODRINE HCL (5MG) 5 MG TABLET GT PRN (17:42)
--- NOTE | 2018-03-15 18:45 | NUR ---
INFORMATION RECEPTIONIST NOTES PATIENT WITH ORDER TO DISCHARGE TO [facility]. DISCHARGE INSTRUCTIONS AND EDUCATION PROVIDED. NO MISSING BELONGINGS NOTED. IV REMOVED WITH MINIMAL BLEEDING NOTED, PRESSURE DRESSING APPLIED. PATIENT LEFT UNIT AT 1830 VIA GURNEY IN STABLE CONDITION. NO CHANGES IN LOC NOTED. MD MADE AWARE OF DISCHARGE.
== END 2018-03-15 18:50 | DRG 393 ==
LOC: ER 12:42 → TELE 14:14
PROVIDERS: ADMIT Internal Medicine Nephrology; ATTEND Internal Medicine Nephrology
PROC: 5A1D70Z Performance of Urinary Filtration, Intermittent, Less than 6 Hours Per Day (ICD-10-PCS; 2018-03-09)
PROC: 5A1955Z Respiratory Ventilation, Greater than 96 Consecutive Hours (ICD-10-PCS; principal; 2018-03-10)
PROC: 5A1D70Z Performance of Urinary Filtration, Intermittent, Less than 6 Hours Per Day (ICD-10-PCS; 2018-03-10)
PROC: 5A1D70Z Performance of Urinary Filtration, Intermittent, Less than 6 Hours Per Day (ICD-10-PCS; 2018-03-12)
PROC: 0D20XUZ Change Feeding Device in Upper Intestinal Tract, External Approach (ICD-10-PCS; 2018-03-14)
PROC: 5A1D70Z Performance of Urinary Filtration, Intermittent, Less than 6 Hours Per Day (ICD-10-PCS; 2018-03-14)
PROC: 06PYX3Z Removal of Infusion Device from Lower Vein, External Approach (ICD-10-PCS; 2018-03-14)
PROC: 06H033Z Insertion of Infusion Device into Inferior Vena Cava, Percutaneous Approach (ICD-10-PCS; 2018-03-14)
PROC: B519YZA Fluoroscopy of Inferior Vena Cava using Other Contrast, Guidance (ICD-10-PCS; 2018-03-14)
DX: K94.23 Gastrostomy malfunction (principal); N18.6 End stage renal disease; G93.49 Other encephalopathy; I12.0 Hypertensive chronic kidney disease with stage 5 chronic kidney disease or end stage renal disease; E87.1 Hypo-osmolality and hyponatremia; Z99.11 Dependence on respirator [ventilator] status; J96.11 Chronic respiratory failure with hypoxia; K31.6 Fistula of stomach and duodenum; T82.41XA Breakdown (mechanical) of vascular dialysis catheter, initial encounter; Z99.2 Dependence on renal dialysis; E03.9 Hypothyroidism, unspecified; R13.10 Dysphagia, unspecified; Z93.0 Tracheostomy status; G40.909 Epilepsy, unspecified, not intractable, without status epilepticus; I95.89 Other hypotension; J44.9 Chronic obstructive pulmonary disease, unspecified; E11.22 Type 2 diabetes mellitus with diabetic chronic kidney disease; Z88.0 Allergy status to penicillin; Z88.2 Allergy status to sulfonamides; E83.9 Disorder of mineral metabolism, unspecified; Z87.440 Personal history of urinary (tract) infections; Y71.2 Prosthetic and other implants, materials and accessory cardiovascular devices associated with adverse incidents; D64.9 Anemia, unspecified; Z74.01 Bed confinement status; Y84.8 Other medical procedures as the cause of abnormal reaction of the patient, or of later complication, without mention of misadventure at the time of the procedure; Y82.8 Other medical devices associated with adverse incidents; Y92.129 Unspecified place in nursing home as the place of occurrence of the external cause
CPT/HCPCS: 31720; 36415; 71045-TC; 74018; 80048-TC; 80053-TC; 80150; 82962-TC; 83735-TC; 84100-TC; 85025-TC; 85730-TC; 87081-TC; 90935-TC; 94003-TC; 94760-TC; 99082-TC; A4216; A4606; A6253; A6402; A7526; J0278; J1644; J1815; J1953; J2060; J2997; J3010; J3370; J3490; J7040; J7060; P9047; Z7610

== ENCOUNTER 2018-04-18 13:26 | Inpatient (IN) | payer MEDICARE, OTHER ==
[~2018-04-18] VITALS: Ht 170.2 cm; Wt 80.0 kg
[~2018-04-18 13:26] MED LIST changes: -ACET-868 GT; +ACET650S26 GT; -AMLO10TA2 GT; +AMLO10TA6 GT; -HYDR-4076 GT; -HYDR20TA3 GT; +MIDO10TA GT
--- NOTE | 2018-04-18 13:35 | NUR ---
PER FACILITY, FEVER AND TACHY X "A FEW HOURS" S/P HD, NAD NOTED, VSS, RESP EVEN AND UNLABORED, PT WAS PUT ON MONITOR, WAITING FOR MD MARQUEZ.
[2018-04-18] MEDS ORDERED: VANCOMYCIN 1 GM in IV D5W 250 ML IV ONE (14:00)
[2018-04-18] MEDS ORDERED: CEFEPIME 1 GM in IV D5W 50 ML IV ONE (14:00)
[2018-04-18] MEDS ORDERED: IV NS 0.9% 1,000 ML BAG IV ONE (14:00)
[2018-04-18 14:02] LABS: HEMATOCRIT 30 % (33-45); HEMOGLOBIN 9.2 g/dL (11.5-14.8); LYMPHOCYTES % (AUTO) 3.6 % (20.0-44.0); MEAN CORPUSCULAR HGB CONC 31 g/dl (31.0-36.0); MEAN CORPUSCULAR VOLUME 88 fL (82-100); MONOCYTES % (AUTO) 10.1 % (2.0-12.0); NEUTROPHILS % (AUTO) 84.8 % (43.0-81.0); PLATELET COUNT (AUTO) 301 /CMM (150-450); RDW COEFFICIENT OF VARIATION 19.9 (11.5-15.0); RED BLOOD CELL COUNT(AUTO) 3.38 MIL/uL (4.0-5.2); WHITE BLOOD COUNT (AUTO) 14.5 K/uL (4.3-11.0)
[2018-04-18 14:03] LABS: BASOPHILS % (AUTO) 0.6 % (0.0-2.0); EOSINOPHILS % (AUTO) 0.9 % (0.0-6.0)
[2018-04-18 14:06] LABS: CALCIUM, SERUM 8.3 mg/dL (8.5-10.1); CARBON DIOXIDE 27 mmol/L (21-32); CHLORIDE 99 mmol/L (98-107); CREATININE 3.3 mg/dL (0.6-1.3); GLUCOSE 97 mg/dL (74-106); POTASSIUM 3.8 mmol/L (3.5-5.1); SODIUM SERUM 132 mmol/L (136-145); UREA NITROGEN, BLOOD 28 mg/dL (7-18)
[2018-04-18 14:12] LABS: ALANINE AMINOTRANSFERASE 42 U/L (12-78); ALBUMIN 2.7 g/dL (3.4-5.0); ALKALINE PHOSPHATASE 180 U/L (46-116); ASPARTATE AMINOTRANSFERASE 47 U/L (15-37); BILIRUBIN,DIRECT 0.1 mg/dL (0.0-0.2); BILIRUBIN,TOTAL 0.5 mg/dL (0.2-1.0); TOTAL PROTEIN, SERUM 9.1 g/dL (6.4-8.2)
[2018-04-18 14:14] LABS: TROPONIN I < 0.017 ng/mL (0.00-0.056)
[2018-04-18 14:27] VITALS: BP 99/50
--- NOTE | 2018-04-18 14:30 | NUR ---
RT NOTE PT PLACED ON VENT PER MD ORDER. PT HAS CUFFED TRACHEOSTOMY TUBE IN PLACE. CUFF INFLATED VIA RN DISEASE MANAGEMENT. TRACH TUBE MIDLINE AND SECURE. PT RESPONDS TO STIMULI. RHONCHI HEARD UPON AUSCULTATION. LARGE THICK PALE YELLOW SECRETIONS FOUND UPON SUCTION. VENTILATOR SETTINGS ENDORSED BY TRANSPORT RT. ALARMS SET PER PROTOCOL AND AUDIBLE. VENT PLUGGED IN TO RED OUTLET. AMBU BAG AT BED SIDE. NO DISTRESS NOTED AT MOMENT. Addendum: 04/18/18 at 1433 by MEI RIDER RT Amended: Links added.
--- NOTE | 2018-04-18 14:38 | NUR ---
CALLED NURSING MANAGER CODE AND REQUESTED A TELE BED FOR THIS PT.
--- NOTE | 2018-04-18 14:47 | NUR ---
CALLED THE OFFICE OF DR FOLEY AND DR KENAN GUNN WAS PAGED.
--- NOTE | 2018-04-18 14:52 | NUR ---
PT IS ASSIGNED TO TELE #: [id number], DX: PNEUMONIA, AND ACCEPTING MD: KENAN GUNN
[2018-04-18] MEDS ORDERED: LEVOFLOXACIN 750 MG /D5W 150ML PIGGYBACK IV ONE (15:00)
[2018-04-18] MEDS ORDERED: SEVE0.8P3 GT (15:16)
[2018-04-18] MEDS ORDERED: LEVOFLOXACIN 750 MG /D5W 150ML 750 MG in PREMIX 1 EA IV ONE (15:30)
--- NOTE | 2018-04-18 15:41 | NUR ---
REPORT GIVEN TO RN FOR ALMA ROSA
--- NOTE | 2018-04-18 15:49 | NUR ---
CASING TIER NOTE REPORT RECEIVED FROM [facility].WAITING FOR PATIENT TO BE RECEIVED.SPOKE TO .CONTINUE ALL HOME MEDS.FAXED TO PHARMACY.SPOKE TO [facility] .HE RECEIVED FAX.
--- NOTE | 2018-04-18 16:00 | NUR ---
RELAY MOTORMANTECHNICAL PUBLICATIONS MANAGER NOTE PATIENT RECEIVED FROM ER,AWAKE .OPEN EYES SPONTANEOUSLY.ABLE TO COMMUNICATE WITH YES OR NO QUESTIONS WITH NODDING HEAD.NO SOB NOTED AT THIS TIME.TOLERATING SETTINGS ORDERED.IV NOT PATENT.HARD STICK.BED IS YAJAIRA DIN LOW POSITION.SRX3.CALL LIGHT IN REACH.WILL CONTINUE TO MONITOR.
--- NOTE | 2018-04-18 16:07 | NUR ---
ENDORSED TO THE FLOOR NURSE TO HANG LEVAQUIN 750MG IV AFTER VANCO IV HAS BEEN INFUSED.
[2018-04-18] MEDS ORDERED: FEE PK DOSING 1 MIN EA MC ONE ×2 (16:20→18:06)
[2018-04-18] MEDS ORDERED: INSULIN ASPART/LISPRO 100 UNIT/ML CARTRIDGE SQ PRN ×2 (16:30→21:00)
[2018-04-18] MEDS ORDERED: BISACODYL SUPP (10 MG) 10 MG/SUPP.RECT SUPP.RECT RC PRN (16:30)
[2018-04-18] MEDS ORDERED: BLOOD SUGAR DIAGNOSTIC 1 EACH STRIP IN SCH ×2 (16:30→17:30)
[2018-04-18] MEDS ORDERED: IPRATROPIUM NEB FS 0.5 MG/2.5 ML AMPUL.NEB IH PRN (16:30)
[2018-04-18] MEDS ORDERED: DEXTROSE 50%-WATER 50 ML DISP.SYRIN IV PRN (16:30)
[2018-04-18] MEDS: ACETAMINOPHEN 650 MG/20.3 ML UDC GT PRN (17:05)
[2018-04-18] MEDS: DOCUSATE SODIUM LIQ 100 MG/10 ML UDC GT SCH (17:05)
[2018-04-18] MEDS: PROSOURCE / PROSTAT (PYXIS) 30 ML UDC GT SCH (17:05)
[2018-04-18] MEDS: SEVELAMER CARBONATE 0.8 GM POWD.PACK GT SCH (17:58)
[2018-04-18 18:00] VITALS: BP 85/46
[2018-04-18] MEDS: NEPRO 1,000 ML BOTTLE GT PRN (18:27)
[2018-04-18] MEDS: MIDODRINE HCL (5MG) 5 MG TABLET GT PRN (18:38)
--- NOTE | 2018-04-18 18:57 | NUR ---
COMMUNITY NURSE CLOSING NOTE PATIENT AWAKE .OPEN EYES SPONTANEOUSLY.ABLE TO COMMUNICATE WITH YES OR NO QUESTIONS WITH NODDING HEAD.NO SOB NOTED AT THIS TIME.TOLERATING SETTINGS ORDERED.NEW IV INSERTED ON L WRIST BY PARTS ADMINISTRATOR.IV PATENT.IV ATB GIVEN LATE.PRN MEDS GIVEN FOR SBP OF 90.BED IS LOCKED AND IN LOW POSITION.SRX3.CALL LIGHT IN REACH.WILL ENDORSE TO PM NURSE FOR ALMA ROSA
[2018-04-18] MEDS ORDERED: ALBUTEROL FS 2.5 MG/0.5 ML VIAL.NEB NEB PRN (19:30)
[2018-04-18] MEDS: IPRATROPIUM NEB FS 0.5 MG/2.5 ML AMPUL.NEB IH SCH (19:33)
[2018-04-18] MEDS: ALBUTEROL FS 2.5 MG/0.5 ML VIAL.NEB NEB SCH (19:33)
--- NOTE | 2018-04-18 19:34 | NUR ---
RECEIVED PT TRACHED ON VENT. NO RESP DISTRESS NOTED. PT TOLERATING VENT SETTINGS. SX'D FOR SML AMT OF THIN WHITE SECRETIONS. VENT ALARMS SET AND AUDIBLE. AMBU BAG AT BEDSIDE. VENT PLUGGED INTO RED OUTLET. WILL CONTINUE TO MONITOR. Addendum: 04/18/18 at 1934 by LIDYA ANAND RT Amended: Links added.
[2018-04-18 20:00] VITALS: BP 93/48
[2018-04-18] MEDS: ACIDOPHILUS/BULGARICUS 1 EACH TAB.CHEW GT SCH (22:43)
[2018-04-18] MEDS: LEVETIRACETAM SOL (5 ML) 100 MG/ML UDC GT SCH (22:43)
[2018-04-18] MEDS: HEPARIN SODIUM, PORCINE 5000 UNITS/1 ML VIAL SQ SCH (22:50)
[2018-04-18] MEDS: BLOOD SUGAR DIAGNOSTIC 1 EACH STRIP IN SCH (23:01)
[2018-04-19] VITALS (7 sets, daily range): BP systolic 78–97; BP diastolic 47–57
[2018-04-19] MEDS ORDERED: BLOOD SUGAR DIAGNOSTIC 1 EACH STRIP IN SCH
[2018-04-19] MEDS: IPRATROPIUM NEB FS 0.5 MG/2.5 ML AMPUL.NEB IH SCH ×4 (01:01→19:46)
[2018-04-19] MEDS: ALBUTEROL FS 2.5 MG/0.5 ML VIAL.NEB NEB SCH ×4 (01:01→19:46)
--- NOTE | 2018-04-19 05:42 | NUR ---
PATIENT RECEIVED ON MECHANICAL VENTILATION WITH SETTINGS OF AC 14, 500 VT, 40%, +5. SUCTIONED FOR MINIMAL, THIN, WHITE SECRETIONS. GIVEN IN-LINE TREATMENTS WITH NO ADVERSE REACTIONS. AMBU BAG AT BEDSIDE. VENT AND PULSE OXIMETER ALARMS AUDIBLE AND VISIBLE. VENT IS PLUGGED IN RED OUTLET. Addendum: 04/19/18 at 0544 by KATERINE DARDEN RT Amended: Links added.
[2018-04-19] MEDS: BLOOD SUGAR DIAGNOSTIC 1 EACH STRIP IN SCH ×3 (06:25→18:39)
--- NOTE | 2018-04-19 07:01 | NUR ---
RN NOTES NO ACUTE DISTRESS OBSERVED OVERNIGHT. REMAINS AFEBRILE. SR-ST OVERNIGHT. VENT SETTINGS TOLERATED WELL, AIRWAY KEPT CLEAR, SUCTIONED NEEDED. GTF TOLERATED WELL, NO GASTRIC RESIDUAL. ATB ORDERED. NEEDS ANTICIPATED AND MET. KEPT PATIENT KEPT CLEAN AND DRY. SAFETY AND COMFORT ENSURED. WILL ENDORSE ACCORDINGLY FOR CONTINUITY OF CARE.
[2018-04-19 07:07] LABS: BASOPHILS % (AUTO) 0.1 % (0.0-2.0); EOSINOPHILS % (AUTO) 1.2 % (0.0-6.0); HEMATOCRIT 28 % (33-45); HEMOGLOBIN 8.3 g/dL (11.5-14.8); LYMPHOCYTES # (AUTO) 0.9 /CMM (0.8-4.8); MEAN CORPUSCULAR HGB CONC 30 g/dl (31.0-36.0); MEAN CORPUSCULAR VOLUME 89 fL (82-100); MONOCYTES # (AUTO) 1.5 /CMM (0.1-1.30); MONOCYTES % (AUTO) 10.4 % (2.0-12.0); NEUTROPHILS # (AUTO) 11.8 /CMM (1.8-8.9); NEUTROPHILS % (AUTO) 82.3 % (43.0-81.0); PLATELET COUNT (AUTO) 307 /CMM (150-450); RDW COEFFICIENT OF VARIATION 20.9 (11.5-15.0); RED BLOOD CELL COUNT(AUTO) 3.16 MIL/uL (4.0-5.2); WHITE BLOOD COUNT (AUTO) 14.4 K/uL (4.3-11.0)
--- NOTE | 2018-04-19 07:15 | NUR ---
MARKETING AND DEVELOPMENT COORDINATOR OPENING NOTE RECEIVED PATIENT IN STABLE CONDITION, NO RESPIRATORY DISTRESS NOTED, NONVERBAL, NO SIGNS OF PAIN. VENTILATOR SETTINGS ORDERED, NEPRO INFUSING ORDERED, IV SITE ON LEFT INDEX FINGER INTACT. SINUS RHYTHM ON ADVISER SALES, HEART RATE IN THE HIGH 90S. HEAD OF BED ELEVATED, BED LOW AND LOCKED, ALARM ON, CALL LIGHT WITHIN REACH, WILL CONTINUE TO MONITOR CLOSELY.
[2018-04-19 07:29] LABS: ALBUMIN 2.5 g/dL (3.4-5.0); BILIRUBIN,TOTAL 0.6 mg/dL (0.2-1.0); CALCIUM, SERUM 8.9 mg/dL (8.5-10.1); CREATININE 4.4 mg/dL (0.6-1.3); MAGNESIUM 2.4 mg/dL (1.8-2.4); POTASSIUM 4.1 mmol/L (3.5-5.1); TOTAL PROTEIN, SERUM 8.6 g/dL (6.4-8.2)
--- NOTE | 2018-04-19 07:40 | NUR ---
METHODS ANALYST NOTE RECEIVED A CALL FROM LAB THAT PATIENT'S PHOSPHORUS LEVEL IS 1.0. PAGED DR. GUNN, AWAITING RESPONSE.
[2018-04-19] MEDS: CHOLECALCIFEROL 1,000 UNIT TABLET (VIT D3) GT SCH (08:32)
[2018-04-19] MEDS: LEVETIRACETAM SOL (5 ML) 100 MG/ML UDC GT SCH ×2 (08:32→20:01)
[2018-04-19] MEDS: LEVOTHYROXINE SODIUM 75 MCG TABLET PO SCH (08:32)
[2018-04-19] MEDS: DOCUSATE SODIUM LIQ 100 MG/10 ML UDC GT SCH ×2 (08:32→18:38)
[2018-04-19] MEDS: PROSOURCE / PROSTAT (PYXIS) 30 ML UDC GT SCH ×3 (08:33→18:39)
[2018-04-19] MEDS: ACIDOPHILUS/BULGARICUS 1 EACH TAB.CHEW GT SCH ×2 (08:33→20:01)
[2018-04-19] MEDS: HEPARIN SODIUM, PORCINE 5000 UNITS/1 ML VIAL SQ SCH ×2 (08:35→20:02)
[2018-04-19] MEDS: MIDODRINE HCL (5MG) 5 MG TABLET GT PRN (08:54)
[2018-04-19] MEDS: SEVELAMER CARBONATE 0.8 GM POWD.PACK GT SCH (09:00)
[2018-04-19] MEDS ORDERED: VIT B CMPLX 3/FA/VIT C/BIOTIN 1 TAB TABLET PO SCH (09:00)
[2018-04-19] MEDS: Z GUARD REMEDY 2 OZ OINT TP SCH (09:44)
[2018-04-19] MEDS: AMLODIPINE BESYLATE 10 MG TABLET GT SCH (11:00)
[2018-04-19] MEDS: PANTOPRAZOLE 40 MG/PACK PACK GT SCH (11:42)
--- NOTE | 2018-04-19 13:00 | NUR ---
SALES ADVISOR NOTE RECEIVED AN ORDER TO STRAIGHT CATH PATIENT IN ORDER TO OBTAIN A URINE SAMPLE FOR UA. ATTEMPTED TO OBTAIN SAMPLE BUT PATIENT DID NOT HAVE ENOUGH URINE IN THE BLADDER DUE TO BEING ANURIC. NOTIFIED MD BRANDAN AWARE.
[2018-04-19] MEDS: ACETAMINOPHEN 650 MG/20.3 ML UDC GT PRN (13:33)
[2018-04-19] MEDS ORDERED: ALBUMIN 25% 25 GM in PREMIX 1 EA IV PRN (14:30)
[2018-04-19] MEDS: NEUTRA PHOS 1 POWD.PACKET GT SCH ×2 (14:30→18:39)
[2018-04-19] MEDS ORDERED: VANCOMYCIN 500 MG in IV D5W 100 ML IV PRN (16:30)
[2018-04-19] MEDS ORDERED: MAGNESIUM OXIDE 400 MG TABLET PO SCH (17:00)
[2018-04-19] MEDS: NEPRO 1,000 ML BOTTLE GT PRN (20:01)
--- NOTE | 2018-04-19 20:16 | NUR ---
ROLL FORMER CLOSING NOTE PATIENT RESTING IN BED IN STABLE CONDITION, SUCTIONED NEEDED, CLEANED, CHANGED AND REPOSITIONED FOR COMFORT. NO RESPIRATORY DISTRESS NOTED. HEAD OF BED ELEVATED, BED LOW AND LOCKED, CALL LIGHT WITHIN REACH, SIDE RAILS UP, WILL ENDORSE TO ONCOMING NURSE FOR CONTINUITY OF CARE.
[2018-04-20] VITALS: BP 96/45
[2018-04-20] MEDS: BLOOD SUGAR DIAGNOSTIC 1 EACH STRIP IN SCH ×5 (00:19→23:28)
[2018-04-20] MEDS: ALBUTEROL FS 2.5 MG/0.5 ML VIAL.NEB NEB SCH ×4 (01:58→19:47)
[2018-04-20] MEDS: IPRATROPIUM NEB FS 0.5 MG/2.5 ML AMPUL.NEB IH SCH ×4 (01:58→19:47)
[2018-04-20 04:00] VITALS: BP 99/48
[2018-04-20 06:04] LABS: BASOPHILS # (AUTO) 0.1 /CMM (0.0-0.2); BASOPHILS % (AUTO) 0.5 % (0.0-2.0); EOSINOPHILS % (AUTO) 2.5 % (0.0-6.0); HEMATOCRIT 26 % (33-45); HEMOGLOBIN 8.1 g/dL (11.5-14.8); LYMPHOCYTES # (AUTO) 1.1 /CMM (0.8-4.8); LYMPHOCYTES % (AUTO) 9.1 % (20.0-44.0); MEAN CORPUSCULAR HGB CONC 31 g/dl (31.0-36.0); MEAN CORPUSCULAR VOLUME 89 fL (82-100); MONOCYTES # (AUTO) 1.6 /CMM (0.1-1.30); MONOCYTES % (AUTO) 12.6 % (2.0-12.0); NEUTROPHILS # (AUTO) 9.3 /CMM (1.8-8.9); NEUTROPHILS % (AUTO) 75.3 % (43.0-81.0); PLATELET COUNT (AUTO) 292 /CMM (150-450); RDW COEFFICIENT OF VARIATION 20.7 (11.5-15.0); RED BLOOD CELL COUNT(AUTO) 2.96 MIL/uL (4.0-5.2); WHITE BLOOD COUNT (AUTO) 12.3 K/uL (4.3-11.0)
[2018-04-20 06:07] LABS: ALBUMIN 2.3 g/dL (3.4-5.0); BILIRUBIN,TOTAL 0.5 mg/dL (0.2-1.0); CALCIUM, SERUM 9.1 mg/dL (8.5-10.1); MAGNESIUM 2.4 mg/dL (1.8-2.4); PHOSPHORUS 2.5 mg/dL (2.5-4.9); POTASSIUM 4.2 mmol/L (3.5-5.1); TOTAL PROTEIN, SERUM 8.4 g/dL (6.4-8.2)
--- NOTE | 2018-04-20 06:50 | NUR ---
RN CLOSING NOTES PATIENT WITH NO ACUTE CHANGE IN CONDITION OBSERVED OVERNIGHT. PATIENT'S NEEDS ANTICIPATED AND MET. SAFETY AND COMFORT ENSURED. REPOSITIONED. WOUND TREATMENT RENDERED. TRACH CARE AND ORAL CARE RENDERED. TOLERATED VENT SETTINGS WELL. SUCTIONED AIRWAY AND KEPT CLEAR. GTF TOLERATED WELL. NSR ON TELE. WILL ENDORSE ACCORDINGLY.
--- NOTE | 2018-04-20 07:15 | NUR ---
ORCHARD HAND OPENING NOTE RECEIVED PATIENT RESTING IN BED IN STABLE CONDITION. VENT SETTINGS ORDERED, NO RESPIRATORY DISTRESS NOTED. SINUS RHYTHM ON SIDEWALK INSPECTOR, HEART RATE IN THE 90S. G TUBE FEEDING INFUSING ORDERED. NO SIGNS OF PAIN. HEAD OF BED ELEVATED, BED LOW AND LOCKED, ALARM ON. WILL CONTINUE TO MONITOR CLOSELY.
[2018-04-20 08:00] VITALS: BP 104/60
--- NOTE | 2018-04-20 08:25 | NUR ---
WOUND CARE CONSULT: PT PRESENTS WITH SACRAL SCARRING AND SCARRING TO LEFT ANTERIOR THIGH, PRESENT ON ADMISSION. RECOMMENDATIONS MADE FOR SKIN PROTECTION AND DISCUSSED WITH NURSING STAFF. FIRST STEP LOW AIRLOSS MATTRESS ORDERED. WILL SEE PRN. GIPSON IN AGREEMENT WITH PLAN OF CARE. Addendum: 04/20/18 at 0820 by SAGAR PRASAD WNDNU Amended: Links added.
[2018-04-20] MEDS: PROSOURCE / PROSTAT (PYXIS) 30 ML UDC GT SCH ×3 (09:00→17:52)
[2018-04-20] MEDS: AMLODIPINE BESYLATE 10 MG TABLET GT SCH (11:00)
[2018-04-20] MEDS: LEVOTHYROXINE SODIUM 75 MCG TABLET PO SCH (11:18)
[2018-04-20] MEDS: DOCUSATE SODIUM LIQ 100 MG/10 ML UDC GT SCH ×2 (11:18→17:52)
[2018-04-20] MEDS: ACIDOPHILUS/BULGARICUS 1 EACH TAB.CHEW GT SCH ×2 (11:19→21:12)
[2018-04-20] MEDS: NEUTRA PHOS 1 POWD.PACKET GT SCH (11:19)
[2018-04-20] MEDS: HEPARIN SODIUM, PORCINE 5000 UNITS/1 ML VIAL SQ SCH ×2 (11:19→21:12)
[2018-04-20] MEDS: PANTOPRAZOLE 40 MG/PACK PACK GT SCH (11:20)
[2018-04-20] MEDS: VIT B CMPLX 3/FA/VIT C/BIOTIN 1 TAB TABLET GT SCH (11:20)
[2018-04-20] MEDS: CHOLECALCIFEROL 1,000 UNIT TABLET (VIT D3) GT SCH (11:20)
[2018-04-20] MEDS: LEVETIRACETAM SOL (5 ML) 100 MG/ML UDC GT SCH ×2 (11:20→21:11)
[2018-04-20] MEDS: Z GUARD REMEDY 2 OZ OINT TP SCH (11:23)
[2018-04-20 12:00] VITALS: BP 101/44
[2018-04-20 16:00] VITALS: BP 138/68
[2018-04-20] MEDS ORDERED: LEVOFLOXACIN 500 MG /D5W 100ML 500 MG in PREMIX 1 EA IV SCH (17:00)
[2018-04-20] MEDS: CEFEPIME 1 GM in IV D5W 50 ML IV SCH (17:53)
--- NOTE | 2018-04-20 19:15 | NUR ---
B2B SALES MANAGER NOTE PATIENT IS OBTUNDED, TRACH TO MECHANICAL VENT ON SETTINGS ORDERED, TELE SR, SKIN KEPT CLEAN AND DRY, G TUBE FEEDING OFF WILL RESUME AT INDICATED TIME, R HAND #22G TKO, PATENT ABLE TO FLUSH, SITE IS CLEAN AND DRY, JAMES AV FISTULA, SAFETY MAINTAINED AT ALL TIMES, BED IN LOW LOCKED POSITION, WILL CONTINUE TO MONITOR FRO ANY CHANGES IN CONDITION.
[2018-04-20 20:00] VITALS: BP_SYST 95; BP_SYST 96; BP_DIAS 55
--- NOTE | 2018-04-20 20:04 | NUR ---
PT RCVD TRACH'D ON MECHANICAL VENT WITH CHARTED SETTINGS. PT TOLERATING SETTINGS WELL AT THIS TIME. TX GIVEN AND NO ADVERSE REACTION NOTED. SX DONE. PT TRACH PATENT AND SECURE. AMBU BAG AT BEDSIDE. VENT PLUGGED INTO RED OUTLET. ALARMS ARE ON AND AUDIBLE. WILL CONTINUE TO MONITOR. Addendum: 04/20/18 at 2004 by TOO CAMARILLO RT Amended: Links added.
--- NOTE | 2018-04-20 20:19 | NUR ---
SELF SEALING FUEL TANK REPAIRER CLOSING NOTE PATIENT RESTING IN BED IN STABLE CONDITION. WOUND CARE DONE, REPOSITIONED AND TURNED FOR COMFORT. SUCTIONED NEEDED. VENT SETTINGS ORDERED. IV SITE ON RIGHT HAND INTACT SALINE LOCK. HEAD OF BED ELEVATED, BED LOW AND LOCKED, ALARM ON. WILL ENDORSE TO ONCOMING NURSE FOR CONTINUITY OF CARE.
[2018-04-21] VITALS (7 sets, daily range): BP systolic 107–136; BP diastolic 52–69
[2018-04-21] MEDS: ALBUTEROL FS 2.5 MG/0.5 ML VIAL.NEB NEB SCH ×4 (01:26→19:33)
[2018-04-21] MEDS: IPRATROPIUM NEB FS 0.5 MG/2.5 ML AMPUL.NEB IH SCH ×4 (01:26→19:33)
[2018-04-21] MEDS: NEPRO 1,000 ML BOTTLE GT PRN (02:59)
[2018-04-21] MEDS: BLOOD SUGAR DIAGNOSTIC 1 EACH STRIP IN SCH ×4 (05:38→23:43)
--- NOTE | 2018-04-21 07:15 | NUR ---
PIG FARMER OPENING NOTE PATIENT RESTING IN BED IN STABLE CONDITION, NO RESPIRATORY DISTRESS NOTED. SINUS RHYTHM WITH A HEART RATE IN THE 70S ON RO[address]. IV SITE ON RIGHT HAND INTACT SALINE LOCK. G TUBE FEEDING INFUSING ORDERED. HEAD OF BED ELEVATED, BED LOW AND LOCKED, CALL LIGHT WITHIN REACH, WILL CONTINUE TO MONITOR CLOSELY.
[2018-04-21 07:19] LABS: BASOPHILS % (AUTO) 0.2 % (0.0-2.0); EOSINOPHILS % (AUTO) 3.5 % (0.0-6.0); HEMATOCRIT 27 % (33-45); HEMOGLOBIN 8.3 g/dL (11.5-14.8); LYMPHOCYTES # (AUTO) 1.1 /CMM (0.8-4.8); LYMPHOCYTES % (AUTO) 10.2 % (20.0-44.0); MEAN CORPUSCULAR HGB CONC 31 g/dl (31.0-36.0); MEAN CORPUSCULAR VOLUME 88 fL (82-100); MONOCYTES # (AUTO) 0.9 /CMM (0.1-1.30); MONOCYTES % (AUTO) 8.6 % (2.0-12.0); NEUTROPHILS # (AUTO) 8.5 /CMM (1.8-8.9); NEUTROPHILS % (AUTO) 77.5 % (43.0-81.0); PLATELET COUNT (AUTO) 304 /CMM (150-450); RDW COEFFICIENT OF VARIATION 20.7 (11.5-15.0); RED BLOOD CELL COUNT(AUTO) 3.08 MIL/uL (4.0-5.2)
[2018-04-21 07:44] LABS: CALCIUM, SERUM 9.5 mg/dL (8.5-10.1); MAGNESIUM 2.8 mg/dL (1.8-2.4); PHOSPHORUS 3.5 mg/dL (2.5-4.9); POTASSIUM 4.4 mmol/L (3.5-5.1)
[2018-04-21 07:46] LABS: CREATININE 7.6 mg/dL (0.6-1.3)
[2018-04-21] MEDS: DOCUSATE SODIUM LIQ 100 MG/10 ML UDC GT SCH ×2 (09:09→17:00)
[2018-04-21] MEDS: LEVOTHYROXINE SODIUM 75 MCG TABLET PO SCH (09:10)
[2018-04-21] MEDS: LEVETIRACETAM SOL (5 ML) 100 MG/ML UDC GT SCH ×2 (09:10→21:05)
[2018-04-21] MEDS: ACIDOPHILUS/BULGARICUS 1 EACH TAB.CHEW GT SCH ×2 (09:11→21:05)
[2018-04-21] MEDS: CHOLECALCIFEROL 1,000 UNIT TABLET (VIT D3) GT SCH (09:11)
[2018-04-21] MEDS: VIT B CMPLX 3/FA/VIT C/BIOTIN 1 TAB TABLET GT SCH (09:11)
[2018-04-21] MEDS: HEPARIN SODIUM, PORCINE 5000 UNITS/1 ML VIAL SQ SCH ×2 (09:12→21:05)
[2018-04-21] MEDS: PROSOURCE / PROSTAT (PYXIS) 30 ML UDC GT SCH ×3 (09:15→18:45)
[2018-04-21] MEDS: Z GUARD REMEDY 2 OZ OINT TP SCH (09:16)
[2018-04-21] MEDS: PANTOPRAZOLE 40 MG/PACK PACK GT SCH (12:41)
[2018-04-21] MEDS: AMLODIPINE BESYLATE 10 MG TABLET GT SCH (12:42)
[2018-04-21] MEDS: CEFEPIME 1 GM in IV D5W 50 ML IV SCH (18:45)
--- NOTE | 2018-04-21 19:15 | NUR ---
LIQUID WASTE TREATMENT PLANT OPERATOR NOTE PATIENT IS NONVERBAL, TRACH TO MECHANICAL VENT ON SETTINGS ORDERED, NO S/SX OF CARDIAC OR RESPIRATORY DISTRESS, TELE SR, SKIN KEPT CLEAN AND DRY, G TUBE FEEDING OFF WILL RESUME AT INDICATED TIME, R HAND #22G SL, PATENT ABLE TO FLUSH, SITE IS CLEAN AND DRY, JAMES AV FISTULA, SAFETY MAINTAINED AT ALL TIMES, BED IN LOW LOCKED POSITION, WILL CONTINUE TO MONITOR FRO ANY CHANGES IN CONDITION.
--- NOTE | 2018-04-21 20:14 | NUR ---
HUMAN RESOURCES BENEFITS ADMINISTRATOR CLOSING NOTE PATIENT RESTING IN BED IN STABLE CONDITION, NO RESPIRATORY DISTRESS NOTED. IV SITE ON RIGHT HAND INTACT SALINE LOCK. VENT SETTINGS ORDERED. G TUBE FEEDING OFF ORDERED. BED LOW AND LOCKED, ALARM ON, CALL LIGHT WITHIN REACH, HEAD OF BED ELEVATED, WILL ENDORSE TO ONCOMING NURSE FOR CONTINUITY OF CARE.
--- NOTE | 2018-04-21 20:29 | NUR ---
PATIENT WAS RECEIVED ON CONTINUOUS VENT SUPPORT ON NOTED VENT SETTINGS. B/S RHONCHI SUCTIONED WITH A MODERATE AMOUNT OF THIN WHITE SECRETIONS. HHN TREATMENT GIVEN , TOLERATED WELL. VENT PLUGGED INTO RED OUTLET. AMBUBAG AND SPARE TRACH AT BEDSIDE. TRACH TUBE PATENT AND SECURED. PATIENT STABLE AT THIS TIME. WILL CONTINUE TO MONITOR. Addendum: 04/21/18 at 2030 by SIL RIDER RT Amended: Links added.
[2018-04-21] MEDS: ACETAMINOPHEN 650 MG/20.3 ML UDC GT PRN (21:05)
[2018-04-22] VITALS (10 sets, daily range): BP systolic 90–131; BP diastolic 45–76
[2018-04-22] MEDS: ALBUTEROL FS 2.5 MG/0.5 ML VIAL.NEB NEB SCH ×4 (01:33→19:50)
[2018-04-22] MEDS: IPRATROPIUM NEB FS 0.5 MG/2.5 ML AMPUL.NEB IH SCH ×4 (01:33→19:48)
[2018-04-22] MEDS: BLOOD SUGAR DIAGNOSTIC 1 EACH STRIP IN SCH ×3 (05:27→17:06)
--- NOTE | 2018-04-22 06:48 | NUR ---
SHELLFISH DREDGE OPERATOR NOTE PT SON MC CALLED FOR CONSENTS FOR PERMA CATH PLACEMENT AND BLOOD TRANSFUSION, CONSENTED TO PROCEDURE AND CO SIGN BY ARMANDO NELSON
[2018-04-22] MEDS: NEPRO 1,000 ML BOTTLE GT PRN (07:21)
[2018-04-22] MEDS: LEVOTHYROXINE SODIUM 75 MCG TABLET PO SCH (07:30)
--- NOTE | 2018-04-22 08:00 | NUR ---
MERCHANDISE ASSOCIATE NOTE PATIENT IN BED , ALL NEEDS ATTENDED WITH TRACH TO VENT SETTING ORDERED AMBU BAG AT HOB , ON TELE MONITOR SR 90, G TUBE STOPED AT THIS [facility] PER DR COHN ORDER ,WILL DO SX HD PLACEMENT , RT HAND HL INTACT NO S\S INFECTION NOTED BED IN LOWEST AND LOCKED POSITION UNABLE TO CALL FAMILY TO GET CONSENT CHARGE NURSE TRIED X2 , WILL CONT TO CALL
[2018-04-22] MEDS: PROSOURCE / PROSTAT (PYXIS) 30 ML UDC GT SCH ×3 (09:00→16:50)
[2018-04-22] MEDS: CHOLECALCIFEROL 1,000 UNIT TABLET (VIT D3) GT SCH (09:00)
[2018-04-22] MEDS: VIT B CMPLX 3/FA/VIT C/BIOTIN 1 TAB TABLET GT SCH (09:00)
[2018-04-22] MEDS: ACIDOPHILUS/BULGARICUS 1 EACH TAB.CHEW GT SCH ×2 (09:00→21:59)
[2018-04-22] MEDS: DOCUSATE SODIUM LIQ 100 MG/10 ML UDC GT SCH ×2 (09:00→16:49)
[2018-04-22] MEDS: HEPARIN SODIUM, PORCINE 5000 UNITS/1 ML VIAL SQ SCH ×2 (09:00→22:00)
[2018-04-22] MEDS: LEVETIRACETAM SOL (5 ML) 100 MG/ML UDC GT SCH ×2 (09:00→21:59)
[2018-04-22] MEDS: Z GUARD REMEDY 2 OZ OINT TP SCH (09:17)
[2018-04-22 09:36] LABS: BASOPHILS % (AUTO) 0.3 % (0.0-2.0); EOSINOPHILS % (AUTO) 2.8 % (0.0-6.0); HEMATOCRIT 27 % (33-45); HEMOGLOBIN 8.4 g/dL (11.5-14.8); LYMPHOCYTES # (AUTO) 0.8 /CMM (0.8-4.8); LYMPHOCYTES % (AUTO) 6.5 % (20.0-44.0); MEAN CORPUSCULAR HGB CONC 31 g/dl (31.0-36.0); MEAN CORPUSCULAR VOLUME 88 fL (82-100); MONOCYTES # (AUTO) 1.1 /CMM (0.1-1.30); MONOCYTES % (AUTO) 8.8 % (2.0-12.0); NEUTROPHILS % (AUTO) 81.6 % (43.0-81.0); PLATELET COUNT (AUTO) 375 /CMM (150-450); RDW COEFFICIENT OF VARIATION 21.1 (11.5-15.0); RED BLOOD CELL COUNT(AUTO) 3.12 MIL/uL (4.0-5.2); WHITE BLOOD COUNT (AUTO) 12.3 K/uL (4.3-11.0)
[2018-04-22 09:53] LABS: CALCIUM, SERUM 9.9 mg/dL (8.5-10.1); PHOSPHORUS 3.9 mg/dL (2.5-4.9); POTASSIUM 4.2 mmol/L (3.5-5.1)
[2018-04-22 09:54] LABS: CREATININE 8.6 mg/dL (0.6-1.3)
[2018-04-22] MEDS ORDERED: LIDOCAINE 1% INJ 50 ML MDV IJ ONE (10:20)
[2018-04-22] MEDS ORDERED: HEPARIN SODIUM, PORCINE 1,000 UNIT/ML VIAL ONE (10:20)
[2018-04-22] MEDS ORDERED: IOHEXOL 240MG/ML 50 ML IV ONE (10:20)
[2018-04-22] MEDS ORDERED: FENTANYL PF 100MCG/2ML AMPUL ONE (10:34)
--- NOTE | 2018-04-22 10:44 | NUR ---
FISHING VESSEL OPERATOR NOTE HIEN YORK CALLED BACK AND CONSENT FOR HD PLACEMENT DONE
--- NOTE | 2018-04-22 10:45 | NUR ---
GIN POLE OPERATOR NOTE OR NURSE AT BEDSIDE TAKEN TO OR
[2018-04-22] MEDS: AMLODIPINE BESYLATE 10 MG TABLET GT SCH (11:00)
[2018-04-22] MEDS: PANTOPRAZOLE 40 MG/PACK PACK GT SCH (11:30)
--- NOTE | 2018-04-22 11:40 | NUR ---
MARKETING MGR NOTES PT CAME BACK FROM SURGERY FOR HD REPLACEMENT ON RIGHT FEMUR.THE SITE IS INTACT,DRESSING IS INTACT.BACK TO VENT SETTING BY RT.NOT IN DISTRESS.
--- NOTE | 2018-04-22 12:41 | NUR ---
CHAIR SPRINGER NOTES DR COHN ORDERED TO RESUME THE G TUBE FEEDING AND ALL THE MEDICATIONS.
[2018-04-22] MEDS ORDERED: VANCOMYCIN 1 GM in IV D5W 250 ML IV PRN (15:00)
--- NOTE | 2018-04-22 15:40 | NUR ---
CLOTH FINISHING RANGE TENDER NOTES HD IS STARTED,COMFORTABLE ON BED AND VITAL SIGNS CHECKED AND RECORDED.
--- NOTE | 2018-04-22 18:23 | NUR ---
MEDICAL STAFF DIRECTOR NOTES PT CONTINUE WITH HEMODIALYSIS. PT FEELS NAUSEATED HOLD G TUBE FEEDING.CHECKED THE RESIDUAL AND IT IS 0 ML.NO DISTRESS NOTED AND CALL LIGHT IS WITHIN REACH.
[2018-04-22] MEDS: CEFEPIME 1 GM in IV D5W 50 ML IV SCH (18:46)
--- NOTE | 2018-04-22 18:54 | NUR ---
STAFF RADIOLOGIST NOTES PER HEMODIALYSIS NURSE REPORT REMOVED 2200 ML OF FLUID AND BP IS 115/54,HR-102,T-98.8 AND NO RESIDUAL NOTED,HEAD PLACED ELEVATED.G TUBE FEEDING IS RESUME.
--- NOTE | 2018-04-22 19:31 | NUR ---
ADAPTIVE PHYSICAL EDUCATION TEACHER NOTE ENDORSED TO NEXT SHIFT RN TO ADMINISTER VANCO IV POST HD , SPOKE WITH BOBBY NELSON
[2018-04-23] VITALS (7 sets, daily range): BP systolic 81–113; BP diastolic 40–60
[2018-04-23] MEDS: BLOOD SUGAR DIAGNOSTIC 1 EACH STRIP IN SCH ×5 (00:47→23:50)
[2018-04-23] MEDS: INSULIN REGULAR, HUMAN 100 UNIT/ML 3 ML VIAL SQ PRN (00:47)
[2018-04-23] MEDS: ALBUTEROL FS 2.5 MG/0.5 ML VIAL.NEB NEB SCH ×4 (01:34→20:25)
[2018-04-23] MEDS: IPRATROPIUM NEB FS 0.5 MG/2.5 ML AMPUL.NEB IH SCH ×4 (01:34→20:25)
[2018-04-23 06:53] LABS: BASOPHILS % (AUTO) 0.4 % (0.0-2.0); EOSINOPHILS % (AUTO) 1.8 % (0.0-6.0); HEMATOCRIT 26 % (33-45); HEMOGLOBIN 7.9 g/dL (11.5-14.8); LYMPHOCYTES # (AUTO) 0.7 /CMM (0.8-4.8); LYMPHOCYTES % (AUTO) 6.9 % (20.0-44.0); MEAN CORPUSCULAR HGB CONC 30 g/dl (31.0-36.0); MEAN CORPUSCULAR VOLUME 88 fL (82-100); MONOCYTES # (AUTO) 0.9 /CMM (0.1-1.30); MONOCYTES % (AUTO) 8.3 % (2.0-12.0); NEUTROPHILS # (AUTO) 8.4 /CMM (1.8-8.9); NEUTROPHILS % (AUTO) 82.6 % (43.0-81.0); PLATELET COUNT (AUTO) 375 /CMM (150-450); RED BLOOD CELL COUNT(AUTO) 2.98 MIL/uL (4.0-5.2); WHITE BLOOD COUNT (AUTO) 10.2 K/uL (4.3-11.0)
[2018-04-23 07:07] LABS: CALCIUM, SERUM 9.1 mg/dL (8.5-10.1); CREATININE 6.1 mg/dL (0.6-1.3); MAGNESIUM 2.4 mg/dL (1.8-2.4); PHOSPHORUS 3.4 mg/dL (2.5-4.9); POTASSIUM 4.1 mmol/L (3.5-5.1)
--- NOTE | 2018-04-23 07:15 | NUR ---
SANITARY ENGINEER INITIAL NOTES PATIENT RESTING IN BED WITH NO ACUTE DISTRESS NOTED. ALL SAFETY MEASURES INITIATED, ON VENT TRACH MANAGMENT MD ORDERED SAT ABOVE 97% NO SOB NOTED, ON TELE MO NSR HEART RATE 86, GTUBE FEEDING NO RESIDUAL NOTED, IV SITES INTACT AND PATENT NO S.S OF INFILTRATION NOTED. WILL CONTINUE TO MONITOR.
--- NOTE | 2018-04-23 07:23 | NUR ---
RT RECEIVED PT TRACH ON VENT, WITH NOTED SETTINGS. PRESS CATCHER DONE AND TRACH IS SECURE. VENT ALARMS CHECKED AND AUDIBLE. VENT PLUGGED IN RED OUTLET. AMBU BAG NOTED HOB. SX WITH MOD TO LRG THK FRAZIER SECRETIONS. PT ON CONTINUOUS PULSE OX. BREATHING TX GIVEN. PT TOLERATING SETTINGS WELL. NO SOB OR RESP DISTRESS NOTED, WILL CONTINUE TO MONITOR T/O SHIFT. Addendum: 04/23/18 at 1503 by JOSÉ MIGUEL SRIVASTAVA RT Amended: Links added.
[2018-04-23] MEDS: LEVOTHYROXINE SODIUM 75 MCG TABLET PO SCH (08:28)
[2018-04-23] MEDS: LEVETIRACETAM SOL (5 ML) 100 MG/ML UDC GT SCH ×2 (08:29→21:37)
[2018-04-23] MEDS: DOCUSATE SODIUM LIQ 100 MG/10 ML UDC GT SCH ×2 (08:29→16:57)
[2018-04-23] MEDS: ACIDOPHILUS/BULGARICUS 1 EACH TAB.CHEW GT SCH ×2 (08:29→21:37)
[2018-04-23] MEDS: CHOLECALCIFEROL 1,000 UNIT TABLET (VIT D3) GT SCH (08:29)
[2018-04-23] MEDS: VIT B CMPLX 3/FA/VIT C/BIOTIN 1 TAB TABLET GT SCH (08:29)
[2018-04-23] MEDS: Z GUARD REMEDY 2 OZ OINT TP SCH (08:35)
[2018-04-23] MEDS: PROSOURCE / PROSTAT (PYXIS) 30 ML UDC GT SCH ×3 (08:36→16:57)
[2018-04-23] MEDS: HEPARIN SODIUM, PORCINE 5000 UNITS/1 ML VIAL SQ SCH ×2 (08:36→21:38)
[2018-04-23] MEDS: AMLODIPINE BESYLATE 10 MG TABLET GT SCH (11:00)
[2018-04-23] MEDS: PANTOPRAZOLE 40 MG/PACK PACK GT SCH (11:49)
[2018-04-23 11:51] LABS: BAND % (MANUAL) 1 % (0.0-5.0); EOSINOPHILS % (MANUAL) 3 % (0-4); LYMPHOCYTES % (MANUAL) 4 % (16-48); METAMYELOCYTES % 1 % (0-0); MONOCYTES % (MANUAL) 11 % (0-11.0); MYELOCYTES % 3 % (0-0); NEUTROPHILS % (MANUAL) 77 (42-76)
[2018-04-23] MEDS: CEFEPIME 1 GM in IV D5W 50 ML IV SCH (17:11)
--- NOTE | 2018-04-23 18:24 | NUR ---
BUSINESS TRAVEL CONSULTANT ENDING NOTES PT STABLE WITH NO ACUTE CHANGES NOTED, WOUND TX PROVIDED MD ORDERED, ALL MEDS GIVEN, ALL SAFETY MEASURES INITIATED, WILL ENDORSE TO PM NURSE
--- NOTE | 2018-04-23 18:59 | NUR ---
FILLER BLOCK INSERTER REMOVER CLOSING REPORT GIVEN TO ONCOMING NURSE. PT STABLE NO CHANGE IN CONDITION INDORSED VANCO OF 26 .
[2018-04-24] VITALS: BP 90/59
[2018-04-24] MEDS: ALBUTEROL FS 2.5 MG/0.5 ML VIAL.NEB NEB SCH ×4 (02:25→20:07)
[2018-04-24] MEDS: IPRATROPIUM NEB FS 0.5 MG/2.5 ML AMPUL.NEB IH SCH ×4 (02:25→20:07)
[2018-04-24 04:00] VITALS: BP 89/41
[2018-04-24] MEDS: BLOOD SUGAR DIAGNOSTIC 1 EACH STRIP IN SCH ×4 (06:30→23:43)
--- NOTE | 2018-04-24 07:15 | NUR ---
PROPERTY UNDERWRITER OPENING NOTE RECEIVED PATIENT SLEEPING IN BED, VENT SETTINGS ORDERED, NO DISTRESS NOTED. SINUS RHYTHM ON RIPSAWYER WITH A HEART RATE OF 85. IV SITE ON LEFT HAND INTACT SALINE LOCK. G TUBE FEEDING INFUSING ORDERED. BED LOW AND LOCKED, HEAD OF BED ELEVATED, WILL CONTINUE TO MONITOR CLOSELY.
--- NOTE | 2018-04-24 07:33 | NUR ---
Female trach pt received on a mechanical vent. Pt cecilia is secure. Vent is plugged into a red outlet, alarms are set and audible, and BMV is at bedside. Addendum: 04/24/18 at 0942 by CAPRICE LENTZ RT Amended: Links added.
[2018-04-24 08:00] VITALS: BP 100/46
[2018-04-24] MEDS: PROSOURCE / PROSTAT (PYXIS) 30 ML UDC GT SCH ×3 (09:27→17:09)
[2018-04-24] MEDS: HEPARIN SODIUM, PORCINE 5000 UNITS/1 ML VIAL SQ SCH ×2 (09:28→20:39)
[2018-04-24] MEDS: LEVOTHYROXINE SODIUM 75 MCG TABLET PO SCH (09:28)
[2018-04-24] MEDS: ACIDOPHILUS/BULGARICUS 1 EACH TAB.CHEW GT SCH ×2 (09:28→20:34)
[2018-04-24] MEDS: VIT B CMPLX 3/FA/VIT C/BIOTIN 1 TAB TABLET GT SCH (09:28)
[2018-04-24] MEDS: DOCUSATE SODIUM LIQ 100 MG/10 ML UDC GT SCH ×2 (09:29→17:00)
[2018-04-24] MEDS: CHOLECALCIFEROL 1,000 UNIT TABLET (VIT D3) GT SCH (09:29)
[2018-04-24] MEDS: Z GUARD REMEDY 2 OZ OINT TP SCH (09:30)
[2018-04-24] MEDS: LEVETIRACETAM SOL (5 ML) 100 MG/ML UDC GT SCH ×2 (09:37→20:34)
--- NOTE | 2018-04-24 09:39 | NUR ---
Received female trach pt on mechanical vent. Pt trach is secure. Vent is plugged into a red outlet, alarms are set and audible, and BMV is at beside.
[2018-04-24] MEDS: AMLODIPINE BESYLATE 10 MG TABLET GT SCH (11:00)
--- NOTE | 2018-04-24 11:32 | NUR ---
FINANCIAL SALES REPRESENTATIVE NOTE HELD NORVASC DUE TO PATIENT GETTING DIALYZED.
[2018-04-24 12:00] VITALS: BP 106/49
[2018-04-24] MEDS: PANTOPRAZOLE 40 MG/PACK PACK GT SCH (12:42)
[2018-04-24 16:00] VITALS: BP_SYST 100; BP_SYST 98; BP_DIAS 45; BP_DIAS 46
[2018-04-24] MEDS: CEFEPIME 1 GM in IV D5W 50 ML IV SCH (17:09)
[2018-04-24] MEDS: NEPRO 1,000 ML BOTTLE GT PRN (17:36)
--- NOTE | 2018-04-24 19:24 | NUR ---
INSULATION PACKER CLOSING NOTE PATIENT RESTING IN BED IN STABLE CONDITION, VENT SETTINGS ORDERED. PATIENT SUCTIONED, CLEANED, NO RESPIRATORY DISTRESS NOTED. IV SITE ON LEFT HAND INTACT SALINE LOCK. G TUBE FEEDING INFUSING ORDERED. BED LOW AND LOCKED, HEAD OF BED ELEVATED, WILL ENDORSE TO ONCOMING NURSE FOR CONTINUITY OF CARE.
[2018-04-24 20:00] VITALS: BP 109/63
--- NOTE | 2018-04-24 20:12 | NUR ---
GEAR CUTTING MACHINE OPERATOR NOTES: RECEIVED PT ON BED WITH NO APPARENT DISTRESS NOTED. NO FACIAL GRIMACING OR ANY SIGNS OF PAIN NOTED. ON [place] VENT, SETTINGS ORDERED. NO SOB NOTED. SUCTIONED NEEDED. GT INTACT AND PATENT, NO RESIDUAL NOTED AT THIS TIME. ON TELE MONITOR SINUS TACHY HR 102BPM. KEPT CLEAN, DRY AND COMFORTABLE. SAFETY AND FALL PRECAUTIONS OBSERVED AND MAINTAINED. WILL CONTINUE TO MONITOR PT.
--- NOTE | 2018-04-24 23:50 | NUR ---
NURSING PROGRAM MANAGER NOTES: RECEIVED A CALL FROM LAB (JESSICA) REGARDING PATIENT'S TROPONIN 4.535, TROPONIN TRENDING DOWN, PREVIOUSLY IT WAS 4.587 Addendum: 04/25/18 at 0629 by CHARLIE LOAIZA RN DOCUMENTATION NOT FOR THIS PT.
[2018-04-25] VITALS: BP_SYST 101; BP_SYST 96; BP_DIAS 49; BP_DIAS 57
[2018-04-25] MEDS: ALBUTEROL FS 2.5 MG/0.5 ML VIAL.NEB NEB SCH ×4 (02:21→19:15)
[2018-04-25] MEDS: IPRATROPIUM NEB FS 0.5 MG/2.5 ML AMPUL.NEB IH SCH ×4 (02:22→19:15)
[2018-04-25 04:00] VITALS: BP 98/48
[2018-04-25] MEDS: BLOOD SUGAR DIAGNOSTIC 1 EACH STRIP IN SCH ×4 (05:36→23:36)
--- NOTE | 2018-04-25 06:31 | NUR ---
BORDEREAU CLERK NOTES: NO CHANGES NOTED THROUGHOUT THE SHIFT. NO ACUTE DISTRESS NOTED. NO FACIAL GRIMACING OR ANY SIGNS OF PAIN NOTED. ON [facility] VENT, SETTINGS ORDERED. SATURATING WELL. NO SOB NOTED. SUCTIONED PRN. HEAD OF BED KEPT ELEVATED. GT INTACT AND PATENT, NO RESIDUAL NOTED AT THIS TIME. SINUS RHYTHM ON TELE MONITOR HR 100BPM. KEPT CLEAN, DRY AND COMFORTABLE. SAFETY AND FALL PRECAUTIONS OBSERVED AND MAINTAINED. CALL LIGHT WITHIN REACH. WILL ENDORSE TO DAY SHIFT NURSE FOR CONTINUITY OF CARE.
[2018-04-25] MEDS: LEVOTHYROXINE SODIUM 75 MCG TABLET PO SCH (06:45)
[2018-04-25 08:00] VITALS: BP_SYST 90; BP_DIAS 31; BP_DIAS 48
--- NOTE | 2018-04-25 08:00 | NUR ---
RN NOTES RECEIVED PATIENT IN THE BED TRACHEA/ VENT DEPENDENT, PATIENT AWAKE EYES IS OPEN, NONVERBAL. PATIENT STABLE NO ACUTE RESPIRATORY DISTRESS. IV ACCESS ON LEFT HAND INTACT SL, CHECKED RESIDUAL, AND PLACEMENT ON G-TUBE. FEEDING IS NEPRO AT 50 ML/HR. MEDICATION GIVEN VIA G-TUBE, V/S STABLE, ASSIST PATIENT TURN AND REPOSTION Q 2 HR. CALL LIGHT WITHIN TO REACH. NEEDS ATTENDED A DN ANTICIPATED. CONTINUED MONITORING PATIENT ON [facility].
[2018-04-25] MEDS: AMLODIPINE BESYLATE 10 MG TABLET GT SCH (11:00)
[2018-04-25] MEDS: VIT B CMPLX 3/FA/VIT C/BIOTIN 1 TAB TABLET GT SCH (11:15)
[2018-04-25] MEDS: LEVETIRACETAM SOL (5 ML) 100 MG/ML UDC GT SCH ×2 (11:15→20:48)
[2018-04-25] MEDS: DOCUSATE SODIUM LIQ 100 MG/10 ML UDC GT SCH ×2 (11:15→17:01)
[2018-04-25] MEDS: PANTOPRAZOLE 40 MG/PACK PACK GT SCH (11:15)
[2018-04-25] MEDS: CHOLECALCIFEROL 1,000 UNIT TABLET (VIT D3) GT SCH (11:15)
[2018-04-25] MEDS: ACIDOPHILUS/BULGARICUS 1 EACH TAB.CHEW GT SCH ×2 (11:15→20:48)
[2018-04-25] MEDS: HEPARIN SODIUM, PORCINE 5000 UNITS/1 ML VIAL SQ SCH ×2 (11:17→20:53)
[2018-04-25] MEDS: PROSOURCE / PROSTAT (PYXIS) 30 ML UDC GT SCH ×3 (11:19→17:01)
[2018-04-25] MEDS: Z GUARD REMEDY 2 OZ OINT TP SCH (11:20)
--- NOTE | 2018-04-25 11:45 | NUR ---
RT PATIENT REC'D TRACHED ON [facility] VENT WITH ORDERED SETTINGS TOLERATED WELL. VENT ALARMS CHECKED + AUDIBLE. CUFF PRESSURE CHECKED PLASTIC FIXTURE BUILDER. TRACH SECURE + IN PROPER POSITION. PATIENT AIRWAY SUCTIONED WITH SMALL TO MOD AMT OF PALE SEMI-THICK SECRETIONS. AMBU BAG AT [facility]. CONT CURRENT PLAN OF RESP CARE. Addendum: 04/25/18 at 1149 by SUE HERRERA RT Amended: Links added.
[2018-04-25 12:00] VITALS: BP 103/60
--- NOTE | 2018-04-25 12:00 | NUR ---
RN NOTES BS-80 MG/DL, STOP G-TUBE FEEDING 1130 PER MD ORDER IN 18 HR. PATIENT SLEEPING, TURN AND REPOSTION Q 2 HR. CALL LIGHT WITHIN TO REACH, CONTINUED MONITORING.
[2018-04-25 16:00] VITALS: BP 92/50
[2018-04-25] MEDS: CEFEPIME 1 GM in IV D5W 50 ML IV SCH (17:01)
--- NOTE | 2018-04-25 18:22 | NUR ---
RN NOTES PATIENT GETTING HEMODIALYSIS AT THIS TIME, BS- 82 MG/DL, SCHEDULED MEDICATION ADMINISTERED VIA G-TUBE. V/S STABLE, KEEP HOB ELEVATED FOR ASPIRATION PRECAUTION. STARTED G-TUBE FEEDING ON 50 ML/HR AT 1530. NEEDS ATTENDED AND ANTICIPATED, ASSIST TURN AND REPOSTION Q 2 HR. CALL LIGHT WITHIN TO REACH. ENDORSED ONCOMING NURSE FOR PLAN OF CARE.
--- NOTE | 2018-04-25 19:15 | NUR ---
RT NOTE: RECEIVED TRACH PT ON MECHANICAL VENT WITH NOTED SETTINGS. Q6 BREATHING TX GIVEN PER MD ORDER. NO ADVERSE REACTION NOTED. SX DONE WITH MODERATE AMOUNT OF THICK YELLOW SECRETIONS. PT TRACH PATENT AND SECURE. WAITER/WAITRESS FIRST CLASS DONE. AMBU BAG AT BEDSIDE. VENT PLUGGED INTO RED OUTLET. ALARMS ARE ON AND AUDIBLE. WILL CONTINUE TO MONITOR. Addendum: 04/26/18 at 0116 by KATHERINE SHEEHAN RT Amended: Links added.
[2018-04-25] MEDS: NEPRO 1,000 ML BOTTLE GT PRN (19:35)
--- NOTE | 2018-04-25 19:52 | NUR ---
UNIFORM DESIGNER NOTES: RECEIVED PT ON BED WITH NO APPARENT DISTRESS NOTED. PT ONGOING HD AT THIS TIME. NO FACIAL GRIMACING OR ANY SIGNS OF PAIN NOTED. [facility], SETTINGS ORDERED. SATURATING WELL. SUCTIONED NEEDED. GT INTACT AND PATENT, NO RESIDUAL NOTED AT THIS TIME. ON TELE MONITOR SINUS TACHY HR 103BPM. KEPT CLEAN, DRY AND COMFORTABLE. SAFETY AND FALL PRECAUTIONS OBSERVED AND MAINTAINED. WILL CONTINUE TO MONITOR PT.
[2018-04-25 20:00] VITALS: BP 104/51
[2018-04-26] VITALS: BP_SYST 113; BP_SYST 96; BP_DIAS 49; BP_DIAS 53
[2018-04-26] MEDS: IPRATROPIUM NEB FS 0.5 MG/2.5 ML AMPUL.NEB IH SCH ×4 (00:44→19:46)
[2018-04-26] MEDS: ALBUTEROL FS 2.5 MG/0.5 ML VIAL.NEB NEB SCH ×4 (00:45→19:46)
[2018-04-26 04:00] VITALS: BP 96/48
[2018-04-26] MEDS: BLOOD SUGAR DIAGNOSTIC 1 EACH STRIP IN SCH ×4 (06:12→23:42)
--- NOTE | 2018-04-26 06:25 | NUR ---
ALEMITE OPERATOR NOTES: NO CHANGES NOTED THROUGHOUT THE SHIFT. NO APPARENT DISTRESS NOTED. NO FACIAL GRIMACING OR ANY SIGNS OF PAIN NOTED. [facility], SETTINGS ORDERED. SATURATING WELL. SUCTIONED NEEDED. GT INTACT AND PATENT, ON NEPRO @ 50ML/HR, NO RESIDUAL NOTED AT THIS TIME. SINUS RHYTHM ON TELE MONITOR HR 91BPM. KEPT CLEAN, DRY AND COMFORTABLE. SAFETY AND FALL PRECAUTIONS OBSERVED AND MAINTAINED. WILL ENDORSE TO DAY SHIFT NURSE FOR CONTINUITY OF CARE.
--- NOTE | 2018-04-26 07:10 | NUR ---
HAND STITCHER OPENING NOTE RECEIVED PATIENT IN STABLE CONDITION, VENT SETTINGS ORDERED, G TUBE FEEDING INFUSING ORDERED. NO RESPIRATORY DISTRESS NOTED OR SIGNS OF PAIN. IV SITE ON LEFT HAND INTACT SALINE LOCK. HEAD OF BED ELEVATED, BED LOW AND LOCKED, WILL CONTINUE TO MONITOR.
[2018-04-26 07:54] LABS: CALCIUM, SERUM 9.7 mg/dL (8.5-10.1); CREATININE 5.5 mg/dL (0.6-1.3); POTASSIUM 4.3 mmol/L (3.5-5.1)
[2018-04-26 08:00] VITALS: BP 106/50
[2018-04-26] MEDS: LEVETIRACETAM SOL (5 ML) 100 MG/ML UDC GT SCH ×2 (10:05→21:35)
[2018-04-26] MEDS: VIT B CMPLX 3/FA/VIT C/BIOTIN 1 TAB TABLET GT SCH (10:05)
[2018-04-26] MEDS: DOCUSATE SODIUM LIQ 100 MG/10 ML UDC GT SCH ×2 (10:05→16:32)
[2018-04-26] MEDS: CHOLECALCIFEROL 1,000 UNIT TABLET (VIT D3) GT SCH (10:05)
[2018-04-26] MEDS: LEVOTHYROXINE SODIUM 75 MCG TABLET PO SCH (10:06)
[2018-04-26] MEDS: PROSOURCE / PROSTAT (PYXIS) 30 ML UDC GT SCH ×3 (10:06→16:32)
[2018-04-26] MEDS: ACIDOPHILUS/BULGARICUS 1 EACH TAB.CHEW GT SCH ×2 (10:06→21:35)
[2018-04-26] MEDS: AMLODIPINE BESYLATE 10 MG TABLET GT SCH (10:07)
[2018-04-26] MEDS: Z GUARD REMEDY 2 OZ OINT TP SCH (10:07)
[2018-04-26 12:00] VITALS: BP 94/52
[2018-04-26] MEDS: PANTOPRAZOLE 40 MG/PACK PACK GT SCH (13:07)
[2018-04-26 16:00] VITALS: BP 89/45
[2018-04-26] MEDS: MIDODRINE HCL (5MG) 5 MG TABLET GT PRN (16:31)
[2018-04-26] MEDS: CEFEPIME 1 GM in IV D5W 50 ML IV SCH (18:56)
--- NOTE | 2018-04-26 19:35 | NUR ---
PATCHER WOOD WELDER CLOSING NOTE PATIENT RESTING IN BED IN STABLE CONDITION, VENT SETTINGS ORDERED. NO RESPIRATORY DISTRESS NOTED. ALL NEEDS MET AT THIS TIME. HEAD OF BED ELEVATED, BED IN LOCKED LOW POSITION, WILL ENDORSE TO ONCOMING NURSE FOR CONTINUITY OF CARE.
[2018-04-26 20:00] VITALS: BP 113/53
[2018-04-26] MEDS ORDERED: VANCOMYCIN 1 GM in IV D5W 250 ML IV ONE (20:00)
--- NOTE | 2018-04-26 20:00 | NUR ---
RN INITIAL NOTE RECEIVED PATIENT IN STABLE CONDITION, VENT SETTINGS ORDERED, G TUBE FEEDING ON HOLD. NO RESPIRATORY DISTRESS NOTED OR SIGNS OF PAIN. IV SITE ON LEFT HAND INTACT SALINE LOCK. HEAD OF BED ELEVATED, BED LOW AND LOCKED, WILL CONTINUE TO MONITOR.
[2018-04-26] MEDS: NEPRO 1,000 ML BOTTLE GT PRN (23:42)
[2018-04-27] VITALS: BP 113/53
[2018-04-27] MEDS: IPRATROPIUM NEB FS 0.5 MG/2.5 ML AMPUL.NEB IH SCH ×4 (01:41→20:03)
[2018-04-27] MEDS: ALBUTEROL FS 2.5 MG/0.5 ML VIAL.NEB NEB SCH ×4 (01:41→20:03)
[2018-04-27 04:00] VITALS: BP 114/56
[2018-04-27] MEDS: BLOOD SUGAR DIAGNOSTIC 1 EACH STRIP IN SCH ×3 (05:15→17:10)
[2018-04-27 07:13] LABS: CALCIUM, SERUM 9.6 mg/dL (8.5-10.1); CREATININE 6.9 mg/dL (0.6-1.3); POTASSIUM 4.2 mmol/L (3.5-5.1)
--- NOTE | 2018-04-27 07:16 | NUR ---
RN CLOSING NOTE PATIENT RESTING IN BED IN STABLE CONDITION, VENT SETTINGS ORDERED. NO RESPIRATORY DISTRESS NOTED.TUBE FEEDING INFUSING. ALL NEEDS MET AT THIS TIME. HEAD OF BED ELEVATED, BED IN LOCKED LOW POSITION, WILL ENDORSE TO AM NURSE FOR CONTINUITY OF CARE.
--- NOTE | 2018-04-27 07:23 | NUR ---
TAXI DANCER OPENING NOTE RECEIVED PATIENT IN STABLE CONDITION RESTING IN BED. NO RESPIRATORY DISTRESS NOTED. HEAD OF BED ELEVATED, BED IN LOW AND LOCKED POSITION, WILL CONTINUE TO MONITOR CLOSELY.
[2018-04-27 08:00] VITALS: BP 105/47
[2018-04-27] MEDS: PROSOURCE / PROSTAT (PYXIS) 30 ML UDC GT SCH ×3 (10:30→17:10)
[2018-04-27] MEDS: LEVETIRACETAM SOL (5 ML) 100 MG/ML UDC GT SCH ×2 (10:31→21:26)
[2018-04-27] MEDS: CHOLECALCIFEROL 1,000 UNIT TABLET (VIT D3) GT SCH (10:31)
[2018-04-27] MEDS: ACIDOPHILUS/BULGARICUS 1 EACH TAB.CHEW GT SCH ×2 (10:31→21:27)
[2018-04-27] MEDS: LEVOTHYROXINE SODIUM 75 MCG TABLET PO SCH (10:31)
[2018-04-27] MEDS: VIT B CMPLX 3/FA/VIT C/BIOTIN 1 TAB TABLET GT SCH (10:31)
[2018-04-27] MEDS: Z GUARD REMEDY 2 OZ OINT TP SCH (10:33)
[2018-04-27] MEDS: DOCUSATE SODIUM LIQ 100 MG/10 ML UDC GT SCH ×2 (10:33→17:09)
[2018-04-27] MEDS: AMLODIPINE BESYLATE 10 MG TABLET GT SCH (10:34)
[2018-04-27 12:00] VITALS: BP 109/61
[2018-04-27] MEDS: PANTOPRAZOLE 40 MG/PACK PACK GT SCH (13:31)
[2018-04-27 16:00] VITALS: BP_SYST 105; BP_SYST 124; BP_DIAS 65; BP_DIAS 80
[2018-04-27] MEDS: CEFEPIME 1 GM in IV D5W 50 ML IV SCH (17:10)
--- NOTE | 2018-04-27 17:20 | NUR ---
APPLICATION DEVELOPMENT INTERN NOTE PER DIALYSIS NURSE, UNABLE TO USE RIGHT FEMORAL CATHETER FOR DIALYSIS, NO BLOOD FLOW/RETURN. DIALYSIS NURSE WILL FOLLOW UP REGARDING ACCESS SITE AND NEXT DIALYSIS. CALLED PHARMACY TO NOTIFY AND WAS TOLD TO HOLD VANCOMYCIN IV FOR NOW. WILL ENDORSE TO ONCOMING NURSE.
--- NOTE | 2018-04-27 19:20 | NUR ---
TRUCK DRIVER INSTRUCTOR NOTES RECEIVED PT IN BED, RESTING COMFORTABLY AT THIS TIME. AROUSES EASILY, A/0 X 1, NON VERBAL. TRACH IS INTACT AND PATENT, SUCTIONED PRN. ON SR 92 ON TELE MONITOR. GT IS INTACT AND PATENT, NO RESIDUAL NOTED AT THIS TIME. NO S/S OF HYPO/ HYPERGLYCEMIA NOTED. RIGHT FEMORAL CATHETER INTACT , NO BLEEDING NOTED AT THIS TIME. LEFT HAND IV SITE INTACT AND PATENT , NO S/S OF INFILTRATION NOTED. ALL NEEDS ANTICIPATED AND ATTENDED. SAFETY PRECAUTIONS AND ASPIRATION PRECAUTION OBSERVED. WILL CONT TO MONITOR.
[2018-04-27 20:00] VITALS: BP 111/56
--- NOTE | 2018-04-27 20:04 | NUR ---
RECEIVED TRACH PT ON MECHANICAL VENT WITH NOTED SETTINGS. BREATHING TX GIVEN PER MD ORDER. NO ADVERSE REACTION NOTED. SUCTIONED WITH LARGE AMOUNT OF THICK YELLOW SECRETIONS. NO RESPIRATORY DISTRESS NOTED AT THIS TIME.PT TRACH PATENT AND SECURE. PAN DEVULCANIZER HELPER DONE. AMBU BAG AT BEDSIDE. VENT PLUGGED INTO RED OUTLET. ALARMS ARE ON AND AUDIBLE. WILL CONTINUE TO MONITOR.
--- NOTE | 2018-04-27 20:37 | NUR ---
AIR CONDITIONING INSULATION INSTALLER NOTE PATIENT RESTING IN BED IN STABLE CONDITION, NO DISTRESS NOTED. ALL NEEDS MET AT THIS TIME. HEAD OF BED ELEVATED, BED IN LOW AND LOCKED POSITION, ENDORSED TO ONCOMING NURSE FOR CONTINUITY OF CARE.
[2018-04-27] MEDS: NEPRO 1,000 ML BOTTLE GT PRN (21:24)
[2018-04-28] VITALS: BP 119/61
[2018-04-28] MEDS: BLOOD SUGAR DIAGNOSTIC 1 EACH STRIP IN SCH ×4 (00:24→19:05)
[2018-04-28] MEDS: ALBUTEROL FS 2.5 MG/0.5 ML VIAL.NEB NEB SCH ×4 (00:53→19:17)
[2018-04-28] MEDS: IPRATROPIUM NEB FS 0.5 MG/2.5 ML AMPUL.NEB IH SCH ×4 (00:54→19:17)
[2018-04-28 04:00] VITALS: BP 129/71
[2018-04-28 05:58] LABS: CALCIUM, SERUM 9.7 mg/dL (8.5-10.1); POTASSIUM 4.2 mmol/L (3.5-5.1)
--- NOTE | 2018-04-28 06:40 | NUR ---
GAUGER CHIEF DELIVERY NOTES PT IN BED, RESTING COMFORTABLY AT THIS TIME. AROUSES EASILY, A/0 X 1, NON VERBAL. TRACH IS INTACT AND PATENT, SUCTIONED PRN. ON SR 72 ON TELE MONITOR. GT IS INTACT AND PATENT, NO RESIDUAL NOTED, NO S/S OF HYPO/ HYPERGLYCEMIA NOTED. RIGHT FEMORAL CATHETER INTACT , NO BLEEDING NOTED. LEFT HAND IV SITE INTACT AND PATENT , NO S/S OF INFILTRATION NOTED. ALL NEEDS ANTICIPATED AND ATTENDED. SAFETY PRECAUTIONS AND ASPIRATION PRECAUTION OBSERVED. WILL ENDORSE TO NEXT SHIFT ACCORDINGLY FOR ALMA ROSA.
--- NOTE | 2018-04-28 06:57 | NUR ---
RECEIVED A CALL FROM LAB REGARDING PT'S BUN : 122 , SAMANTHA ENDORSE TO NEXT SHIFT ACCORDINGLY.
--- NOTE | 2018-04-28 07:10 | NUR ---
HEATER ROOM HELPER OPENING NOTE RECEIVED PATIENT IN STABLE CONDITION RESTING IN BED, NO RESPIRATORY DISTRESS NOTED. VENT SETTINGS ORDERED. G TUBE FEEDING INFUSING ORDERED. HEAD OF BED ELEVATED, BED IN LOW AND LOCKED POSITION, WILL CONTINUE TO MONITOR.
[2018-04-28 08:00] VITALS: BP 124/79
[2018-04-28] MEDS: DOCUSATE SODIUM LIQ 100 MG/10 ML UDC GT SCH ×2 (08:21→17:00)
[2018-04-28] MEDS: LEVETIRACETAM SOL (5 ML) 100 MG/ML UDC GT SCH ×2 (08:21→21:17)
[2018-04-28] MEDS: ACIDOPHILUS/BULGARICUS 1 EACH TAB.CHEW GT SCH ×2 (08:22→21:17)
[2018-04-28] MEDS: VIT B CMPLX 3/FA/VIT C/BIOTIN 1 TAB TABLET GT SCH (08:22)
[2018-04-28] MEDS: PROSOURCE / PROSTAT (PYXIS) 30 ML UDC GT SCH ×3 (08:22→19:05)
[2018-04-28] MEDS: LEVOTHYROXINE SODIUM 75 MCG TABLET PO SCH (08:22)
[2018-04-28] MEDS: CHOLECALCIFEROL 1,000 UNIT TABLET (VIT D3) GT SCH (08:22)
[2018-04-28] MEDS: Z GUARD REMEDY 2 OZ OINT TP SCH (08:23)
[2018-04-28] MEDS ORDERED: ALTEPLASE CATHFLO 2 MG/VIAL XX ONE (10:30)
[2018-04-28] MEDS: AMLODIPINE BESYLATE 10 MG TABLET GT SCH (10:58)
--- NOTE | 2018-04-28 11:00 | NUR ---
HAT BAND ATTACHER NOTE NORVASC HELD DUE TO PATIENT BEING DIALYZED LATER TODAY.
--- NOTE | 2018-04-28 11:16 | NUR ---
RT RECD PT TRACHED INTACT AND SECURED ON MECH VENT LAST ORDERED SETTINGS ALARMS ON AND AUDIBLE VENT PLUGGED IN RED OUTLET BAG AND MASK AT HOB SX THICK YELLOW COPIOUS LARGE SECRETIONS TX GIVEN LAST WELL NO ADVERSE REACTION NOTED ATT WILL CONTINUE TO MONITOR
[2018-04-28] MEDS: PANTOPRAZOLE 40 MG/PACK PACK GT SCH (11:17)
[2018-04-28 12:00] VITALS: BP 115/62
[2018-04-28 16:00] VITALS: BP 125/68
[2018-04-28] MEDS: CEFEPIME 1 GM in IV D5W 50 ML IV SCH (19:05)
[2018-04-28 20:00] VITALS: BP 128/74
--- NOTE | 2018-04-28 20:12 | NUR ---
SENIOR HOUSEKEEPER CLOSING NOTE PATIENT ENDORSED TO NOC NURSE IN STABLE CONDITION.
[2018-04-28] MEDS: NEPRO 1,000 ML BOTTLE GT PRN (21:27)
[2018-04-29] VITALS: BP 122/67
[2018-04-29] MEDS: ALBUTEROL FS 2.5 MG/0.5 ML VIAL.NEB NEB SCH ×4 (01:51→19:32)
[2018-04-29] MEDS: IPRATROPIUM NEB FS 0.5 MG/2.5 ML AMPUL.NEB IH SCH ×4 (01:51→19:32)
[2018-04-29 04:00] VITALS: BP 109/61
[2018-04-29] MEDS: BLOOD SUGAR DIAGNOSTIC 1 EACH STRIP IN SCH ×5 (05:33→23:29)
--- NOTE | 2018-04-29 06:35 | NUR ---
SUPERINTENDENT DRILLING AND PRODUCTION NOTES PT AWAKE, NON VERBAL, RESPONDS TO TACTILE AND PAINFUL STIMULI WITH SAME VENT SETTINGS. NOT IN ANY DISTRESS. NO SOB NOTED. NO S/SX OF PAIN OR DISCOMFORT AT THIS TIME. ON TELE SR @ 85 WITH IV-HL PATENT & INTACT. WITH GTF INFUSING WELL. AM CARE DONE. MONITORED ACCORDINGLY. CALL LIGHT WITHIN REACH. BED IN LOWEST POSITION. SR UP X 3 FOR SAFETY. WILL ENDORSE TO NEXT SHIFT.
--- NOTE | 2018-04-29 07:10 | NUR ---
RECEIVED PATIENT IN STABLE CONDITION. VENT SETTINGS ORDERED, NO RESPIRATORY DISTRESS NOTED. G TUBE FEEDING INFUSING ORDERED. IV SITE ON RIGHT HAND INTACT. HEAD OF BED ELEVATED, BED IN LOW AND LOCKED POSITION, WILL CONTINUE TO MONITOR.
[2018-04-29 07:32] LABS: CALCIUM, SERUM 9.5 mg/dL (8.5-10.1); POTASSIUM 4.1 mmol/L (3.5-5.1)
[2018-04-29 07:37] LABS: CREATININE 9.3 mg/dL (0.6-1.3)
[2018-04-29 08:00] VITALS: BP 134/70
[2018-04-29] MEDS: PROSOURCE / PROSTAT (PYXIS) 30 ML UDC GT SCH ×3 (08:14→17:06)
[2018-04-29] MEDS: ACIDOPHILUS/BULGARICUS 1 EACH TAB.CHEW GT SCH ×2 (08:14→20:48)
[2018-04-29] MEDS: LEVOTHYROXINE SODIUM 75 MCG TABLET PO SCH (08:15)
[2018-04-29] MEDS: CHOLECALCIFEROL 1,000 UNIT TABLET (VIT D3) GT SCH (08:15)
[2018-04-29] MEDS: VIT B CMPLX 3/FA/VIT C/BIOTIN 1 TAB TABLET GT SCH (08:15)
[2018-04-29] MEDS: LEVETIRACETAM SOL (5 ML) 100 MG/ML UDC GT SCH ×2 (08:15→20:48)
[2018-04-29] MEDS: DOCUSATE SODIUM LIQ 100 MG/10 ML UDC GT SCH ×2 (08:16→17:00)
[2018-04-29] MEDS: Z GUARD REMEDY 2 OZ OINT TP SCH (08:16)
[2018-04-29] MEDS: PANTOPRAZOLE 40 MG/PACK PACK GT SCH (11:42)
[2018-04-29 12:00] VITALS: BP 157/61
[2018-04-29] MEDS: AMLODIPINE BESYLATE 10 MG TABLET GT SCH (12:43)
--- NOTE | 2018-04-29 15:06 | NUR ---
PT RECEIVED TRACHED ON MECHANICAL VENT W/ SETTINGS PER MD ORDER. VENT IN RED OUTLET, VENT ALARMS CHECKED AND AUDIBLE. PT SX'ED AND LAVAGED PRN. MEDS GIVEN INLINE PER ORDER. TRACH TUBE PATENT, INTACT, CLEAN AND DRY. BREATH SOUNDS EQUAL, DIMINISHED, COARSE. PLAN IS CONTINUE CARE UNDER CURRENT MD ORDERS AND MONITOR FOR CHANGES.
[2018-04-29 16:00] VITALS: BP 111/54
[2018-04-29] MEDS: ACETAMINOPHEN 650 MG/20.3 ML UDC GT PRN (17:06)
--- NOTE | 2018-04-29 19:03 | NUR ---
APPLICATIONS SPECIALIST CLOSING NOTE PATIENT WITH ONE EPISODE OF SMALL EMESIS. PATIENT SUCTIONED AND CLEANED, G TUBE FEEDING OFF. PATIENT RESTING IN BED IN STABLE CONDITION, NO RESPIRATORY DISTRESS NOTED. VENT SETTINGS ORDERED. HEAD OF BED ELEVATED, WILL ENDORSE TO ONCOMING NURSE.
[2018-04-29 20:00] VITALS: BP 98/53
--- NOTE | 2018-04-29 20:00 | NUR ---
TELE 1 RN NOTE PT IN BED WITH EYES OPEN. NON VERBAL, ON VENT/TRACH TOLERATING SETTINGS WELL. SUCTIONED HER FREQUENTLY THICK WHITE SECRETIONS NOTED. ON TELE SR 93. HOLDING GT FEEDING FOR ANOTHER HOUR DUE TO VOMITING EARLIER. 0 ML RESIDUAL NOTED. KEPT HOB ELEVATED. REPOSITION HER FOR SKIN MANAGEMENT. SIDE RAILS UP X 2 AND CALL LIGHT WITHIN REACH. VSS. CONTINUE TO MONITOR HER.
[2018-04-29] MEDS: NEPRO 1,000 ML BOTTLE GT PRN (20:48)
--- NOTE | 2018-04-29 21:30 | NUR ---
EDITORIAL CLERK OPENING NOTE - On-Call, called after normal start time Patient was seen lying in bed on vent with trach, tolerating well with no signs of SOB or aspiration. Patient sleepy and lethargic, opens eyes only to touch. Gtube feeding Nepro is running at 50ml/hr. SL IV in the right hand is intact and patent. Telemonitor shows sinus rhythm of 93 bpm. Patient appears to be comfortable in bed with no signs of acute distress. Bed is low/locked, two side rails up. Will continue to monitor.
[2018-04-30] VITALS (7 sets, daily range): BP systolic 105–143; BP diastolic 44–85
[2018-04-30] MEDS: ALBUTEROL FS 2.5 MG/0.5 ML VIAL.NEB NEB SCH ×4 (02:09→19:31)
[2018-04-30] MEDS: IPRATROPIUM NEB FS 0.5 MG/2.5 ML AMPUL.NEB IH SCH ×4 (02:09→19:31)
[2018-04-30] MEDS: BLOOD SUGAR DIAGNOSTIC 1 EACH STRIP IN SCH ×3 (06:32→17:49)
[2018-04-30] MEDS: LEVOTHYROXINE SODIUM 75 MCG TABLET PO SCH (06:33)
--- NOTE | 2018-04-30 06:45 | NUR ---
HARVEST SUPERVISOR NOTE - BG 67 Patient ordered "NPO except meds" for procedure today 04/30/18, therefore G-tube feeding was put on hold after midnight. Blood sugar was 67. Order for D50 IV push is only for blood sugar below 60. On-call physician notified. Waited for call back for over 30 minutes; no response. Per Charge Nurse, okay to give 4oz of orange juice with one packet sugar water while flushing G-tube with morning meds, since order is for "NPO except meds". Will re-assess blood sugar and call physician again if needed.
--- NOTE | 2018-04-30 07:10 | NUR ---
HOSPITAL INTERNSHIP NOTE - BG Recheck Blood sugar re-check: BG = 87
--- NOTE | 2018-04-30 07:20 | NUR ---
CHILD & ADOLESCENT PSYCHIATRIST CLOSING NOTE Patient was seen lying in bed on vent/trach, tolerating well with no signs of SOB or aspiration. Patient is sleepy and lethargic, opens eyes to touch and sometimes to name. Gtube feeding Nepro was placed on hold around 01:30 to keep patient NPO for procedure today (04/30/18 - HD Cath insertion). SL IV in the right hand is intact and patent. Telemonitor shows sinus rhythm of 90 bpm. Patient appears to be comfortable in bed with no signs of acute distress. Bed is low/locked, two side rails up. Patient care endorsed to day shift nurse.
--- NOTE | 2018-04-30 07:30 | NUR ---
SCHOOL FUNDRAISING DIRECTOR NOTE: RECEIVED PATIENT IN BED, AWAKE, NONVERBAL AND VENT-TRACH DEPENDENT. SATURATING 100% WITH CURRENT VENT SETTING. ON ONCOLOGY COORDINATOR, SR HR= 87. NPO EXCEPT MEDICATIONS IN PREPARATION FOR THE HD CATHETER PLACEMENT TODAY. HOB ELEVATED. ON CONTACT ISOLATION FOR MRSA BLOOD AND R/O FOR C. DIFF. WILL CHECK FOR ANY LOOSE STOOL TODAY AND SEND TO LAB A SPECIMEN. BED ALARMED AND LOCKED AT ALL TIMES. CALL LIGHT WITHIN REACH. NEEDS ANTICIPATED.
[2018-04-30 07:36] LABS: CALCIUM, SERUM 9.6 mg/dL (8.5-10.1); POTASSIUM 4.8 mmol/L (3.5-5.1)
[2018-04-30 07:39] LABS: CREATININE 10.4 mg/dL (0.6-1.3)
[2018-04-30] MEDS: DOCUSATE SODIUM LIQ 100 MG/10 ML UDC GT SCH ×2 (09:00→17:00)
[2018-04-30] MEDS: ACIDOPHILUS/BULGARICUS 1 EACH TAB.CHEW GT SCH ×2 (09:13→20:07)
[2018-04-30] MEDS: VIT B CMPLX 3/FA/VIT C/BIOTIN 1 TAB TABLET GT SCH (09:13)
[2018-04-30] MEDS: LEVETIRACETAM SOL (5 ML) 100 MG/ML UDC GT SCH ×2 (09:13→20:07)
[2018-04-30] MEDS: CHOLECALCIFEROL 1,000 UNIT TABLET (VIT D3) GT SCH (09:14)
[2018-04-30] MEDS: PROSOURCE / PROSTAT (PYXIS) 30 ML UDC GT SCH ×3 (09:14→17:44)
[2018-04-30] MEDS: Z GUARD REMEDY 2 OZ OINT TP SCH (09:15)
--- NOTE | 2018-04-30 11:00 | NUR ---
HOTEL VALET ATTENDANT NOTE: SENT TO LAB THE 3RD STOOL SPECIMEN FOR C. DIFF. PATIENT'S STOOL STILL LIQUID IN FORM AND NO STOOL SOFTENER WAS GIVEN SINCE 2 DAYS AGO. WILL CONTINUE TO MONITOR.
--- NOTE | 2018-04-30 11:19 | NUR ---
PULP OPERATOR NOTE: DR. RUTLEDGE WAS INFORMED OF THE CHEST X-RAY RESULT. AWAITING FOR MD'S RESPONSE. PATIENT ON STABLE CONDITION. SATURATING 100% WITH CURRENT VENTILATOR SETTING AND TOLERATING IT WELL. STILL NPO EXCEPT MEDICATIONS VIA GT AND AWAITING FOR THE MD TO PLACE THE NEW HD CATHETER.
--- NOTE | 2018-04-30 11:20 | NUR ---
CORRECTIONS SPECIALIST NOTE: DR. RUTLEDGE WAS AWARE OF THE CHEST X-RAY RESULT AND MD WITH NO NEW ORDER AT THIS TIME.
[2018-04-30] MEDS: PANTOPRAZOLE 40 MG/PACK PACK GT SCH (11:48)
[2018-04-30] MEDS: AMLODIPINE BESYLATE 10 MG TABLET GT SCH (11:49)
[2018-04-30 13:13] LABS: BASOPHILS % (AUTO) 0.4 % (0.0-2.0); EOSINOPHILS % (AUTO) 2.7 % (0.0-6.0); HEMATOCRIT 28 % (33-45); HEMOGLOBIN 8.4 g/dL (11.5-14.8); LYMPHOCYTES # (AUTO) 1.2 /CMM (0.8-4.8); LYMPHOCYTES % (AUTO) 10.3 % (20.0-44.0); MEAN CORPUSCULAR HGB CONC 30 g/dl (31.0-36.0); MEAN CORPUSCULAR VOLUME 91 fL (82-100); MONOCYTES # (AUTO) 0.5 /CMM (0.1-1.30); MONOCYTES % (AUTO) 4.5 % (2.0-12.0); NEUTROPHILS # (AUTO) 9.7 /CMM (1.8-8.9); NEUTROPHILS % (AUTO) 82.1 % (43.0-81.0); PLATELET COUNT (AUTO) 381 /CMM (150-450); RDW COEFFICIENT OF VARIATION 23.9 (11.5-15.0); RED BLOOD CELL COUNT(AUTO) 3.08 MIL/uL (4.0-5.2); WHITE BLOOD COUNT (AUTO) 11.8 K/uL (4.3-11.0)
[2018-04-30 14:06] LABS: INR 1.15 (0.87-1.13)
--- NOTE | 2018-04-30 14:27 | NUR ---
PATIENT RECEIVED TRACHED ON MECHANICAL VENT. ALARMS VERIFIED AND AUDIBLE. SUCTIONED AND LAVAGED MODERATE-LARGE AMOUNTS OF THICK FRAZIER SECRETIONS. VENT PLUGGED INTO RED OUTLET. [facility]AG AT [facility].
[2018-04-30] MEDS ORDERED: LIDOCAINE 1% INJ 50 ML MDV IJ ONE (14:55)
[2018-04-30] MEDS ORDERED: HEPARIN SODIUM, PORCINE 1,000 UNIT/ML VIAL ONE (14:55)
--- NOTE | 2018-04-30 15:01 | NUR ---
PATENT TRANSPORTED TO OR AT THIS TIME WITH OR TEAM.
[2018-04-30] MEDS ORDERED: CLINDAMYCIN 900 MG/6 ML VIAL ONE (15:04)
--- NOTE | 2018-04-30 15:50 | NUR ---
PATIENT RETURNED FROM OR AND PLACED BACK ON PB 840 VENT. ALARMS VERIFIED AND AUDIBLE. VENT PLUGGED INTO RED OUTLET. PATIENT SUCTIONED AND LAVAGED MODERATE TO LARGE AMOUNT OF THICK FRAZIER SECRETIONS THROUGHOUT SHIFT. AMBU BAG AT [facility].
--- NOTE | 2018-04-30 20:00 | NUR ---
TELE/RN NOTES: RECEIVED PT. IN BED W/ HOB ELEVATED.NON VERBAL DOES NOT TRACK. ON MECHANICAL VENT TOLERATING SETTINGS WELL. ON GTF TOLERATING WELL. HAS BRYAN SHUNT NOT READY FOR USE. HAS LAV SHUNT NOT WORKING. HAS RIGHT FEMORAL HD CATH HAD DIALYSIS TODAY JUST CLEANING . ON CONTACT ISOLATION. NO FACIAL GRIMACES OR MOANING NOTED. CALL LIGHT W/ REACH. WILL CONTINUE TO MONITOR.
--- NOTE | 2018-04-30 20:08 | NUR ---
MANAGER INPATIENT NOTE: PATIENT REMAINED ON STABLE CONDITION. REPORT GIVEN TO PM SHIFT NURSE FOR CONTINUITY OF CARE. STILL ON CONTACT ISOLATION FOR MRSA BLOOD AND R/O FOR C. DIFF.
--- NOTE | 2018-04-30 20:30 | NUR ---
RT NOTE: RECEIVED TRACH PT ON MECHANICAL VENT WITH NOTED SETTINGS. Q6 BREATHING TX GIVEN PER MD ORDER. NO ADVERSE REACTION NOTED. SX DONE WITH MODERATE AMOUNT OF THICK YELLOW SECRETIONS. PT TRACH PATENT AND SECURE. AIR DRILL OPERATOR DONE. AMBU BAG AT BEDSIDE. VENT PLUGGED INTO RED OUTLET. ALARMS ARE ON AND AUDIBLE. WILL CONTINUE TO MONITOR Addendum: 05/01/18 at 0225 by KATHERINE SHEEHAN RT Amended: Links added.
[2018-05-01] VITALS: BP 110/59
[2018-05-01] MEDS: BLOOD SUGAR DIAGNOSTIC 1 EACH STRIP IN SCH ×4 (00:46→17:31)
[2018-05-01] MEDS: ALBUTEROL FS 2.5 MG/0.5 ML VIAL.NEB NEB SCH ×4 (01:23→19:26)
[2018-05-01] MEDS: IPRATROPIUM NEB FS 0.5 MG/2.5 ML AMPUL.NEB IH SCH ×4 (01:24→19:27)
[2018-05-01 04:00] VITALS: BP 91/59
[2018-05-01] MEDS: NEPRO 1,000 ML BOTTLE GT PRN (06:26)
--- NOTE | 2018-05-01 07:32 | NUR ---
TELE/RN NOTES: REPORT GIVEN TO NEXT SHIFT NURSE FOR ALMA ROSA.
[2018-05-01 08:00] VITALS: BP 100/62
--- NOTE | 2018-05-01 08:01 | NUR ---
SILVER MINER OPENING NOTES RECEIVED PATIENT IN STABLE CONDITION. IN NO APPARENT DISTRESS. BEDSIDE RAILS ARE UPX2. BED IS LOCKED AND LOWERED. CALL LIGHT IS WITHIN REACH. IV LINE IS INTACT AND PATENT. WILL CONTINUE TO MONITOR PATIENT.
[2018-05-01 08:41] LABS: POTASSIUM 4.6 mmol/L (3.5-5.1)
[2018-05-01 08:44] LABS: CREATININE 7.8 mg/dL (0.6-1.3)
[2018-05-01] MEDS: DOCUSATE SODIUM LIQ 100 MG/10 ML UDC GT SCH ×2 (09:26→17:31)
[2018-05-01] MEDS: LEVETIRACETAM SOL (5 ML) 100 MG/ML UDC GT SCH ×2 (09:26→20:45)
[2018-05-01] MEDS: LEVOTHYROXINE SODIUM 75 MCG TABLET PO SCH (09:26)
[2018-05-01] MEDS: ACIDOPHILUS/BULGARICUS 1 EACH TAB.CHEW GT SCH ×2 (09:27→20:45)
[2018-05-01] MEDS: CHOLECALCIFEROL 1,000 UNIT TABLET (VIT D3) GT SCH (09:27)
[2018-05-01] MEDS: VIT B CMPLX 3/FA/VIT C/BIOTIN 1 TAB TABLET GT SCH (09:27)
[2018-05-01] MEDS: PROSOURCE / PROSTAT (PYXIS) 30 ML UDC GT SCH ×3 (09:28→17:31)
[2018-05-01] MEDS: Z GUARD REMEDY 2 OZ OINT TP SCH (09:29)
[2018-05-01] MEDS: AMLODIPINE BESYLATE 10 MG TABLET GT SCH (10:17)
--- NOTE | 2018-05-01 10:18 | NUR ---
HELD AMLODIPINE. PATIENT IS GOING TO RECEIVE HEMODIALYSIS AND BLOOD PRESSURE IS 100/62.
[2018-05-01 12:00] VITALS: BP 124/50
[2018-05-01] MEDS: PANTOPRAZOLE 40 MG/PACK PACK GT SCH (13:02)
[2018-05-01 16:00] VITALS: BP 122/68
[2018-05-01] MEDS: METRONIDAZOLE 500 MG TABLET PO SCH (17:31)
--- NOTE | 2018-05-01 18:20 | NUR ---
DEEP SUBMERGENCE VEHICLE OPERATOR CLOSING NOTES PATIENT IN STABLE CONDITION. IN NO APPARENT DISTRESS. BEDSIDE RAILS ARE UPX2. BED IS LOCKED AND LOWERED. CALL LIGHT IS WITHIN REACH. IV LINE IS INTACT AND PATENT. ALL NEEDS WERE MET. WILL ENDORSE CARE TO COAL HANDLING SUPERVISOR NURSE FOR ALMA ROSA.
--- NOTE | 2018-05-01 19:27 | NUR ---
PT RECEIVED TRACH ON THE VENT WITH NOTED SETTINGS. PT IS AWAKE, NON VERBAL. VENT ALARMS ARE SET AND AUDIBLE WITH AMBU BAG @ BEDSIDE. TRACH PATENT AND SECURE. HOME THEATER EXPERIENCE EXPERT CUFF PRESSURE NOTED. VENT IS PLUGGED INTO RED OUTLET. BREATHING TX GIVEN ORDERED. NO ADVERSE REACTION NOTED. SUCTIONED COPIOUS THICK YELLOW SECRETIONS. NO RESPIRATORY DISTRESS NOTED AT THIS TIME, WILL CONTINUE TO MONITOR.
[2018-05-01 20:00] VITALS: BP 126/67
[2018-05-02] VITALS (7 sets, daily range): BP systolic 100–135; BP diastolic 56–82
[2018-05-02] MEDS: BLOOD SUGAR DIAGNOSTIC 1 EACH STRIP IN SCH ×4 (00:34→17:24)
[2018-05-02] MEDS: IPRATROPIUM NEB FS 0.5 MG/2.5 ML AMPUL.NEB IH SCH ×4 (00:39→19:39)
[2018-05-02] MEDS: ALBUTEROL FS 2.5 MG/0.5 ML VIAL.NEB NEB SCH ×4 (00:39→19:39)
[2018-05-02] MEDS: NEPRO 1,000 ML BOTTLE GT PRN (05:36)
[2018-05-02] MEDS: DEXTROSE 50%-WATER 50 ML DISP.SYRIN IV PRN (05:44)
--- NOTE | 2018-05-02 07:47 | NUR ---
STOREKEEPER HELPER NOTES PATIENT RECEIVED RESTING INSIDE ROOM. CONTINUE ON VENT/TRACH. PATIENT OBTUNDED. NO ACUTE DISTRESS AT THIS TIME. NO FACIAL GRIMACE NOTED. CONTINUE ON TELEMETRY, BUSINESS EXCELLENCE MANAGER IN PLACE. CONTINUE WITH GTF. GT INTACT AND PATENT. MAINTAINED ASPIRATION PRECAUTIONS, MAINTAINED HOB ELEVATION AT 45. MAINTAINED ISOLATION PRECAUTION. IV INTACT AND PATENT. WILL CONTINUE TO MONITOR. BED LOCKED AND IN LOW POSITION. BILATERAL UPPER SIDE RAILS UP AND LOCKED. CALL LIGHT WITHIN EASY REACH
[2018-05-02] MEDS: METRONIDAZOLE 500 MG TABLET PO SCH ×3 (08:27→16:57)
[2018-05-02] MEDS: LEVETIRACETAM SOL (5 ML) 100 MG/ML UDC GT SCH ×2 (08:27→21:09)
[2018-05-02] MEDS: ACIDOPHILUS/BULGARICUS 1 EACH TAB.CHEW GT SCH ×2 (08:27→21:09)
[2018-05-02] MEDS: Z GUARD REMEDY 2 OZ OINT TP SCH (08:28)
[2018-05-02] MEDS: VIT B CMPLX 3/FA/VIT C/BIOTIN 1 TAB TABLET GT SCH (08:28)
[2018-05-02] MEDS: CHOLECALCIFEROL 1,000 UNIT TABLET (VIT D3) GT SCH (08:28)
[2018-05-02] MEDS: LEVOTHYROXINE SODIUM 75 MCG TABLET PO SCH (08:28)
[2018-05-02] MEDS: PROSOURCE / PROSTAT (PYXIS) 30 ML UDC GT SCH ×3 (08:29→16:57)
[2018-05-02] MEDS: DOCUSATE SODIUM LIQ 100 MG/10 ML UDC GT SCH ×2 (09:00→16:57)
[2018-05-02] MEDS: AMLODIPINE BESYLATE 10 MG TABLET GT SCH (11:00)
--- NOTE | 2018-05-02 11:04 | NUR ---
FOOD PROCESSING PLANT MANAGER NOTES PATIENT WITH DIALYSIS TODAY. BP MEDICATION HELD. WITH LOOSE BM, STOOL SOFTENER HELD. WILL CONTINUE TO MONITOR
[2018-05-02] MEDS: PANTOPRAZOLE 40 MG/PACK PACK GT SCH (12:27)
--- NOTE | 2018-05-02 13:00 | NUR ---
LEASE ADMINISTRATION SUPERVISOR NOTES S/P HD TODAY WITH 1L OUTPUT. HD DRESSING CHANGED BY DIALISYS NURSE. WILL CONTINUE TO MONITOR
[2018-05-02] MEDS ORDERED: VANCOMYCIN 1 GM in IV D5W 250 ML IV ONE (18:00)
--- NOTE | 2018-05-02 18:51 | NUR ---
COMMISSION CLERK NOTES PATIENT RESTING INSIDE ROOM. CONTINUE VENT/TRACH SETTINGS. NO ACUTE DISTRESS AT THIS TIME. NO BOWEL MOVEMENT DURING THIS SHIFT. PATIENT SEEN AND EXAMINED BY PILO SIMEON (ID), INFORMED THAT STOOL SOFTENER HAS BEEN HELD 2 PREVIOUS REPORT OF LOOSE BM AND GAVE OK. CONTINUE WITH GTF TOLERATED. GT REMAINS PATENT AND IN PLACE. MAINTAINED ASPIRATION PRECAUTIONS. IV INTACT AND PATENT. MAINTAINED ISOLATION PRECAUTIONS. WILL ENDORSE TO INCOMING SHIFT FOR ALMA ROSA. BED LOCKED AND IN LOW POSITION. BILATERAL UPPER SIDE RAILS UP AND LOCKED. CALL LIGHT WITHIN EASY REACH
--- NOTE | 2018-05-02 19:30 | NUR ---
RECEIVED PATIENT IN BED, PATIENT IS TOTAL CARE, OBTUNDENT, VENT DEPENDENT. VSS, AFEBRILE, COPIES SECRETIONS NOTED, PATIENT SUCTIONED AT THIS TIME. PATIENT IS TURNED AND REPOSITIONED AT THIS TIME. CONTINUE TO MONITOR
--- NOTE | 2018-05-02 19:48 | NUR ---
PT RECEIVED ON THE VENT WITH NOTED SETTINGS. VENT ALARMS ARE SET AND AUDIBLE WITH BVM BY BEDSIDE. TIMBER HEWER CUFF PRESSURE NOTED. VENT IS PLUGGED INTO RED OUTLET. PT SX'D SMALL THICK PALE YELLOW SECRETIONS. NO RESPIRATORY DISTRESS NOTED AT THIS TIME, WILL CONTINUE TO MONITOR. Addendum: 05/02/18 at 1948 by LIDYA ANAND RT Amended: Links added.
[2018-05-03] VITALS (7 sets, daily range): BP systolic 105–128; BP diastolic 57–70
[2018-05-03] MEDS: BLOOD SUGAR DIAGNOSTIC 1 EACH STRIP IN SCH ×4 (00:18→17:49)
[2018-05-03] MEDS: INSULIN REGULAR, HUMAN 100 UNIT/ML 3 ML VIAL SQ PRN (00:18)
[2018-05-03] MEDS: NEPRO 1,000 ML BOTTLE GT PRN ×2 (00:19→22:22)
[2018-05-03] MEDS: ALBUTEROL FS 2.5 MG/0.5 ML VIAL.NEB NEB SCH ×4 (02:05→19:28)
[2018-05-03] MEDS: IPRATROPIUM NEB FS 0.5 MG/2.5 ML AMPUL.NEB IH SCH ×4 (02:05→19:28)
--- NOTE | 2018-05-03 05:00 | NUR ---
BS 53 AT THIS TIME- HYPOGLYCEMIC PROTOCOL INITIATED. D5% GLUCOSE IVP GIVEN. CONTINUE TO MONITOR
[2018-05-03] MEDS: DEXTROSE 50%-WATER 50 ML DISP.SYRIN IV PRN (05:20)
--- NOTE | 2018-05-03 05:45 | NUR ---
AFTER RECHECKING BS IS 115. CONTINUE TO MONITOR
--- NOTE | 2018-05-03 08:15 | NUR ---
RN NOTE: PATIENT RECEIVED OBTUNDED, OPEN EYES SPONTANEOUSLY. RESPONSIVE TO VERBAL & TACTILE STIMULI. ON VENT-TRAC, SETTINGS TOLERATING WELL. NO RESPIRATORY DISTRESS NOTED. TUBE FEEDING RUNNING, NO RESIDUAL NOTED. ASPIRATION PRECAUTIONS OBSERVED. SAFETY MEASURES OBSERVED. WILL CONTINUE TO MONITOR.
[2018-05-03] MEDS: DOCUSATE SODIUM LIQ 100 MG/10 ML UDC GT SCH ×2 (09:00→17:00)
[2018-05-03] MEDS: ACIDOPHILUS/BULGARICUS 1 EACH TAB.CHEW GT SCH ×2 (09:45→22:15)
[2018-05-03] MEDS: METRONIDAZOLE 500 MG TABLET PO SCH ×3 (09:45→17:48)
[2018-05-03] MEDS: LEVETIRACETAM SOL (5 ML) 100 MG/ML UDC GT SCH ×2 (09:45→22:15)
[2018-05-03] MEDS: CHOLECALCIFEROL 1,000 UNIT TABLET (VIT D3) GT SCH (09:45)
[2018-05-03] MEDS: LEVOTHYROXINE SODIUM 75 MCG TABLET PO SCH (09:45)
[2018-05-03] MEDS: VIT B CMPLX 3/FA/VIT C/BIOTIN 1 TAB TABLET GT SCH (09:45)
[2018-05-03] MEDS: Z GUARD REMEDY 2 OZ OINT TP SCH (09:47)
[2018-05-03] MEDS: PROSOURCE / PROSTAT (PYXIS) 30 ML UDC GT SCH ×3 (09:49→17:48)
[2018-05-03 10:46] LABS: BASOPHILS % (AUTO) 0.2 % (0.0-2.0); EOSINOPHILS % (AUTO) 2.3 % (0.0-6.0); HEMATOCRIT 26 % (33-45); HEMOGLOBIN 7.7 g/dL (11.5-14.8); LYMPHOCYTES # (AUTO) 0.9 /CMM (0.8-4.8); LYMPHOCYTES % (AUTO) 7.6 % (20.0-44.0); MEAN CORPUSCULAR HGB CONC 30 g/dl (31.0-36.0); MEAN CORPUSCULAR VOLUME 93 fL (82-100); MONOCYTES # (AUTO) 1.1 /CMM (0.1-1.30); MONOCYTES % (AUTO) 9.8 % (2.0-12.0); NEUTROPHILS # (AUTO) 9.1 /CMM (1.8-8.9); NEUTROPHILS % (AUTO) 80.1 % (43.0-81.0); PLATELET COUNT (AUTO) 394 /CMM (150-450); RDW COEFFICIENT OF VARIATION 24.9 (11.5-15.0); RED BLOOD CELL COUNT(AUTO) 2.79 MIL/uL (4.0-5.2); WHITE BLOOD COUNT (AUTO) 11.3 K/uL (4.3-11.0)
[2018-05-03 10:56] LABS: ALBUMIN 2.5 g/dL (3.4-5.0); BILIRUBIN,TOTAL 0.4 mg/dL (0.2-1.0); CALCIUM, SERUM 9.1 mg/dL (8.5-10.1); MAGNESIUM 2.4 mg/dL (1.8-2.4); PHOSPHORUS 4.2 mg/dL (2.5-4.9); POTASSIUM 4.4 mmol/L (3.5-5.1); TOTAL PROTEIN, SERUM 8.7 g/dL (6.4-8.2)
[2018-05-03] MEDS: AMLODIPINE BESYLATE 10 MG TABLET GT SCH (12:29)
[2018-05-03] MEDS: PANTOPRAZOLE 40 MG/PACK PACK GT SCH (12:29)
[2018-05-03] MEDS: VANCOMYCIN HCL 125 MG/2.5 ML ORAL.SUSP PO SCH ×2 (12:30→17:48)
--- NOTE | 2018-05-03 18:55 | NUR ---
RN NOTE: PATIENT REMAINS ALERT AWAKE. TOLERATING WELL VENTILATOR SETTINGS, NEEDS FREQUENT ORAL & ET SUCTION. CONTINUE WITH ORAL CARE Q2H. AT 1800 BS 53 & REPEATED BS 63, INVENTORY ASSOCIATE MADE AWARE, NO ACTION NEEDED PER ORDERS. TUBE FEEDING RUNNING ORDERED. ASPIRATION PRECAUTIONS OBSERVED. WILL ENDORSE TO PM SHIFT FOR CONTINUITY OF CARE.
--- NOTE | 2018-05-03 19:28 | NUR ---
PT RECEIVED TRACH ON THE VENT WITH NOTED SETTINGS. PT IS AWAKE, NON VERBAL. VENT ALARMS ARE SET AND AUDIBLE WITH AMBU BAG @ BEDSIDE. TRACH PATENT AND SECURE. DIP DYER CUFF PRESSURE NOTED. VENT IS PLUGGED INTO RED OUTLET. BREATHING TX GIVEN ORDERED. NO ADVERSE REACTION NOTED. SUCTIONED COPIOUS PALE YELLOW THICK SECRETIONS. NO RESPIRATORY DISTRESS NOTED AT THIS TIME, WILL CONTINUE TO MONITOR.
--- NOTE | 2018-05-03 20:00 | NUR ---
RN INITIAL TELE NOTES PATIENT AWAKE NONVERBAL CONTINUE ON VENT/TRACH. PATIENT OBTUNDED. NO ACUTE DISTRESS AT THIS TIME. NO FACIAL GRIMACE NOTED. CONTINUE ON TELEMETRY, ELECTRICAL FITTER IN PLACE. CONTINUE WITH GTF. GT INTACT AND PATENT. MAINTAINED ASPIRATION PRECAUTIONS, MAINTAINED HOB ELEVATION AT 45. MAINTAINED ISOLATION PRECAUTION. IV INTACT AND PATENT. WILL CONTINUE TO MONITOR. BED LOCKED AND IN LOW POSITION. BILATERAL UPPER SIDE RAILS UP AND LOCKED. CALL LIGHT WITHIN EASY REACH
[2018-05-04] VITALS: BP 115/63
[2018-05-04] MEDS: BLOOD SUGAR DIAGNOSTIC 1 EACH STRIP IN SCH ×4 (00:16→17:11)
[2018-05-04] MEDS: VANCOMYCIN HCL 125 MG/2.5 ML ORAL.SUSP PO SCH ×4 (00:16→17:10)
[2018-05-04] MEDS: IPRATROPIUM NEB FS 0.5 MG/2.5 ML AMPUL.NEB IH SCH ×4 (00:59→19:11)
[2018-05-04] MEDS: ALBUTEROL FS 2.5 MG/0.5 ML VIAL.NEB NEB SCH ×4 (00:59→19:11)
--- NOTE | 2018-05-04 02:00 | NUR ---
EVENTS INTERN OPENING NOTE - Assignment change, moved from 3W to CAIO Patient was seen lying in bed, opened eyes only to touch. Patient is tolerating trach/vent. G-tube is running Nepro at 50ml/hr. SL IV in the left FA is intact and patent. Right femoral HD cath noted, and is clean, dry, and intact. Bed is low/locked, two side rails up. Will continue to monitor.
[2018-05-04 04:00] VITALS: BP_SYST 112; BP_DIAS 36; BP_DIAS 63
[2018-05-04] MEDS: DEXTROSE 50%-WATER 50 ML DISP.SYRIN IV PRN (06:14)
--- NOTE | 2018-05-04 06:28 | NUR ---
DISASTER DIRECTOR NOTE - Vanco non-admin Vanco non-administered due to vanco trough of 27.
--- NOTE | 2018-05-04 06:52 | NUR ---
SPANISH LECTURER NOTE - Reassess blood sugar Patient's blood glucose was found to be 57. Per orders, I administered D50 IV push for BG < 60. Upon reassessment, patient's blood glucose was 134.
--- NOTE | 2018-05-04 07:15 | NUR ---
TELE/RN INITIAL NOTES RECEIVED PT IN BED, AWAKE AND NON VERBAL. SR HR 80S ON TELEMONITOR. ONGOING HEMODIALYSIS, LICENSED MASSAGE PRACTITIONER AT BEDSIDE. WITH INTACT TRACH PORTEX 8, TOLERATING VENT SETTINGS: AC14; TV500; FIO2:40; PEEP5, TO SOB NOTED. LFA G20 SL INTACT AND PATENT. RFEMORAL HD CATH INTACT. GT INTACT AND IN PLACED, WITH ONGOING IVF NEPRO @50ML/HR, TOLERATING WELL. HOB ELEVATED. SAFETY MEASURES AND ASPIRATION PRECAUTION IN PLACED. WILL CONT TO MONITOR
[2018-05-04] MEDS: LEVOTHYROXINE SODIUM 75 MCG TABLET PO SCH (07:49)
[2018-05-04 08:00] VITALS: BP_SYST 103; BP_SYST 117; BP_DIAS 50; BP_DIAS 81
[2018-05-04] MEDS: LEVETIRACETAM SOL (5 ML) 100 MG/ML UDC GT SCH (08:53)
[2018-05-04] MEDS: METRONIDAZOLE 500 MG TABLET PO SCH ×3 (08:53→16:47)
[2018-05-04] MEDS: PROSOURCE / PROSTAT (PYXIS) 30 ML UDC GT SCH ×3 (08:54→16:47)
[2018-05-04] MEDS: VIT B CMPLX 3/FA/VIT C/BIOTIN 1 TAB TABLET GT SCH (08:54)
[2018-05-04] MEDS: Z GUARD REMEDY 2 OZ OINT TP SCH (08:54)
[2018-05-04] MEDS: ACIDOPHILUS/BULGARICUS 1 EACH TAB.CHEW GT SCH (08:54)
[2018-05-04] MEDS: CHOLECALCIFEROL 1,000 UNIT TABLET (VIT D3) GT SCH (08:54)
[2018-05-04] MEDS: DOCUSATE SODIUM LIQ 100 MG/10 ML UDC GT SCH ×2 (08:55→16:42)
[2018-05-04] MEDS: AMLODIPINE BESYLATE 10 MG TABLET GT SCH (11:00)
[2018-05-04] MEDS: PANTOPRAZOLE 40 MG/PACK PACK GT SCH (11:40)
[2018-05-04 12:00] VITALS: BP 99/45
[2018-05-04 16:00] VITALS: BP_SYST 91; BP_DIAS 52; BP_DIAS 53
--- NOTE | 2018-05-04 16:01 | NUR ---
RN NOTES CALLED AND SPOKE SON, MC. INFORMED THAT PT WILL BE D/C TO [facility] INSTEAD OF [facility]. PT'S SON DISAGREE, WANTS TO SPEAK WITH BUSINESS SUPPORT LIAISON BEFORE TRANSFER. MARIO LOZA NOTIFIED AND PT'S SON(MC) NUMBER PROVIDED Addendum: 05/04/18 at 1608 by CINDA HOPKINS RN ADD: OFFERED FLU VACCINE, PT'S SON(MC) REFUSED FOR NOW. STATED, "NOT RIGHT NOW, HER IMMUNE SYSTEM IS COMPROMISE."
--- NOTE | 2018-05-04 16:29 | NUR ---
RN NOTES CLARIFIED WITH MARIO LOZA AND DR GUNN. PER JUMPBASTING LINING BASTER, SON AND DR GUNN IS OK TO D/C PT TO [facility]
--- NOTE | 2018-05-04 17:34 | NUR ---
RN NOTES REPORT GIVEN TO [facility] PHAN RN
--- NOTE | 2018-05-04 19:10 | NUR ---
RN NOTES PT IN STABLE CONDITION. NO ACUTE CHANGES THROUGHOUT SHIFT. SAFETY MEASURES AND ASPIRATION PRECAUTION OBSERVED AT ALL TIMES. ALL NEEDS ANTICIPATED. PT IS FOR D/C, AWAITING FOR P/U. REPORT GIVEN TO PM SHIFT RN FOR [facility]A
--- NOTE | 2018-05-04 19:41 | NUR ---
TELE/RN INITIAL NOTES RECEIVED PT IN BED, AWAKE AND NON VERBAL. SR HR 80S ON TELEMONITOR. WITH INTACT TRACH [place] 8, TOLERATING VENT SETTINGS: AC14; TV500; FIO2:40; PEEP5, NO SIGN OF DISTRESS. LFA G20 SL INTACT AND PATENT. R FEMORAL HD CATH INTACT. GT INTACT AND IN PLACED, WITH ONGOING IVF NEPRO @50ML/HR, TOLERATING WELL. HOB ELEVATED. SAFETY MEASURES AND ASPIRATION PRECAUTION IN PLACED. WILL CONT TO MONITOR
[2018-05-04 20:00] VITALS: BP 100/58
--- NOTE | 2018-05-04 20:12 | NUR ---
RN DC NOTE PT PICKED UP BY AMBULANCE WITH RT ON BOARD, REPORT GIVEN TO ATIYA AT [facility] WELL TO THE EMT, RM# CHANGED TO [phone], PT CLEANED UP PRIOR TO DC, CLEAN AND DRY, IV LINE DC, NO COMPLICATION,REENFORCED SITE WITH TAPE TO SECURE SITE, SON CALLED AWARE OF TRANSFER TO [facility], [facility], SON ABLE TO UNDERSTAND THAT MOTHER WILL BE TRANSFERED BACK TO [facility], AFTER TX, NOTIFIED BOTH [facility] AND [facility] PT ON CONTACT ISOLATION FOR C-DIFF.
--- NOTE | 2018-05-04 21:05 | NUR ---
PT RECEIVED ON MECHANICAL VENT ON THE NOTED SETTINGS. TRACH IS SECURE. PT SUCTIONED MOD THIN WHITE SECRETIONS. BREATHING TX WAS GIVEN, NO ADVERSE REACTIONS NOTED AT THIS TIME. VENT IS PLUGGED INTO RED OUTLET. VENT ALARMS ARE ON AND AUDIBLE. AMBU BAG IS AT BEDSIDE. PT WILL BE GETTING DISCHARGED SOON. WILL CONT TO MONITOR PT. Addendum: 05/04/18 at 2107 by ALLAN DASH RT Amended: Links added.
== END 2018-05-04 20:39 | disposition short-term general hospital (02) | DRG 870 ==
LOC: ER 13:28 → TELE1 15:11
PROVIDERS: ADMIT Internal Medicine Nephrology; ATTEND Internal Medicine Nephrology
PROC: 5A1955Z Respiratory Ventilation, Greater than 96 Consecutive Hours (ICD-10-PCS; principal; 2018-04-18)
PROC: 06H033Z Insertion of Infusion Device into Inferior Vena Cava, Percutaneous Approach (ICD-10-PCS; 2018-04-22)
PROC: B549ZZA Ultrasonography of Inferior Vena Cava, Guidance (ICD-10-PCS; 2018-04-22)
PROC: 5A1D70Z Performance of Urinary Filtration, Intermittent, Less than 6 Hours Per Day (ICD-10-PCS; 2018-04-22)
PROC: 5A1D70Z Performance of Urinary Filtration, Intermittent, Less than 6 Hours Per Day (ICD-10-PCS; 2018-04-23)
PROC: 5A1D70Z Performance of Urinary Filtration, Intermittent, Less than 6 Hours Per Day (ICD-10-PCS; 2018-04-24)
PROC: 5A1D70Z Performance of Urinary Filtration, Intermittent, Less than 6 Hours Per Day (ICD-10-PCS; 2018-04-25)
PROC: 5A1D70Z Performance of Urinary Filtration, Intermittent, Less than 6 Hours Per Day (ICD-10-PCS; 2018-04-27)
PROC: 5A1D70Z Performance of Urinary Filtration, Intermittent, Less than 6 Hours Per Day (ICD-10-PCS; 2018-04-28)
PROC: 5A1D70Z Performance of Urinary Filtration, Intermittent, Less than 6 Hours Per Day (ICD-10-PCS; 2018-04-29)
PROC: 5A1D70Z Performance of Urinary Filtration, Intermittent, Less than 6 Hours Per Day (ICD-10-PCS; 2018-04-30)
PROC: 06PY33Z Removal of Infusion Device from Lower Vein, Percutaneous Approach (ICD-10-PCS; 2018-04-30)
PROC: 06H033Z Insertion of Infusion Device into Inferior Vena Cava, Percutaneous Approach (ICD-10-PCS; 2018-04-30)
PROC: B519YZA Fluoroscopy of Inferior Vena Cava using Other Contrast, Guidance (ICD-10-PCS; 2018-04-30)
PROC: 5A1D70Z Performance of Urinary Filtration, Intermittent, Less than 6 Hours Per Day (ICD-10-PCS; 2018-05-01)
PROC: 5A1D70Z Performance of Urinary Filtration, Intermittent, Less than 6 Hours Per Day (ICD-10-PCS; 2018-05-02)
PROC: 5A1D70Z Performance of Urinary Filtration, Intermittent, Less than 6 Hours Per Day (ICD-10-PCS; 2018-05-04)
DX: A41.9 Sepsis, unspecified organism (principal); N18.6 End stage renal disease; J96.21 Acute and chronic respiratory failure with hypoxia; J95.851 Ventilator associated pneumonia; J44.0 Chronic obstructive pulmonary disease with (acute) lower respiratory infection; Z99.11 Dependence on respirator [ventilator] status; I12.0 Hypertensive chronic kidney disease with stage 5 chronic kidney disease or end stage renal disease; A04.72 Enterocolitis due to Clostridium difficile, not specified as recurrent; G93.40 Encephalopathy, unspecified; J98.11 Atelectasis; T82.41XA Breakdown (mechanical) of vascular dialysis catheter, initial encounter; Z99.2 Dependence on renal dialysis; E03.9 Hypothyroidism, unspecified; G40.909 Epilepsy, unspecified, not intractable, without status epilepticus; Z93.0 Tracheostomy status; Y84.8 Other medical procedures as the cause of abnormal reaction of the patient, or of later complication, without mention of misadventure at the time of the procedure; E11.22 Type 2 diabetes mellitus with diabetic chronic kidney disease; I25.10 Atherosclerotic heart disease of native coronary artery without angina pectoris; Z88.0 Allergy status to penicillin; Z88.2 Allergy status to sulfonamides; R13.10 Dysphagia, unspecified; E83.9 Disorder of mineral metabolism, unspecified; B95.62 Methicillin resistant Staphylococcus aureus infection as the cause of diseases classified elsewhere; F09 Unspecified mental disorder due to known physiological condition; D64.9 Anemia, unspecified; Y92.230 Patient room in hospital as the place of occurrence of the external cause; Z93.1 Gastrostomy status; Y82.8 Other medical devices associated with adverse incidents; Y83.3 Surgical operation with formation of external stoma as the cause of abnormal reaction of the patient, or of later complication, without mention of misadventure at the time of the procedure
CPT/HCPCS: 31720; 36415; 71045-TC; 74018; 80048-TC; 80053-TC; 80076-TC; 80202-TC; 82962-TC; 83605-TC; 83735-TC; 84100-TC; 84484-TC; 85025-TC; 85730-TC; 87040-TC; 87081-TC; 90935-TC; 93307-TC; 94002-TC; 94003-TC; 94760-TC; 94762-TC; 99082-TC; A4216; A4217; A4606; A6253; A6402; A6403; A7526; C1750; C1769; J0692; J1644; J1815; J1953; J1956; J2405; J2704; J2997; J3010; J3370; J3490; J7030; J7050; J7060; P9047; Q9966; Z7610